=== PATIENT | male | born 1960 | race Caucasian/White ===

== ENCOUNTER 2017-01-15 14:24 | Emergency (ER) | payer SELFPAY ==
[~2017-01-15] VITALS: Ht 180.3 cm; Wt 63.0 kg
[~2017-01-15 14:24] MED LIST: MULT-506 PO
--- NOTE | 2017-01-15 14:50 | EMERGENCY ROOM VISIT NOTE ---
History Report prepared by Chet: Juan A Davis Under the Supervision of: Dr. Ghassan Santos D.O. First contact with patient: 14:33 Chief Complaint: DIZZY Stated Complaint: LIGHTHEADED, DIZZY Nursing Triage Summary: pt c/o feeling dizzy for the past week getting worse and is getting more worried about it History of Present Illness The patient is a 56 year old male who presents to the Emergency Room with complaints of intermittent dizziness that began a week ago. However, today his dizziness has been constant. He describes this feeling as lightheaded with being unsteady on his feet and not as the room spinning. He has never felt like this before. He denies any fevers, coughing, chest pain, shortness of breath, abdominal pain, melena, or hematochezia. He is having an increased difficulty focusing as well. 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 He has a past medical history of migraines and chronic body pains. He had a headache for the past two days that feels like a typical migraine. He does not take any medications daily. Source of History: patient Onset: 1 week ago Position: other (Global) Symptom Intensity: moderate Quality: other (Dizziness) Timing: constant (today), intermittent Associated Symptoms: No fevers, No chest pain, No SOB, No abdominal pain, No melena, No hematochezia Note: He denies any room spinning. He is lightheaded. Review of Systems See HPI for pertinent positives & negatives. A total of 10 systems reviewed and were otherwise negative. Past Medical & Surgical Medical Problems: (1) Herniated disc (2) Wrist fracture Family History Patient reports no known family medical history. Social History Smoking Status: Current Every Day Smoker Alcohol Use: occasionally Marital Status: in relationship Housing Status: lives with family Occupation Status: employed Current/Historical Medications Scheduled Aspirin (Aspirin Ec), 325 MG PO PRN Glucosamine Sulfate (Glucosamine), 1 CAP PO DAILY Meclizine HCl (Meclizine 25), 25 MG PO Q8 Allergies Coded Allergies: BEE STING (Verified Allergy, Mild, 06/23/12) Physical Exam Vital Signs Date Time Temp Pulse Resp B/P (MAP) Pulse Ox O2 Delivery O2 Flow Rate FiO2 01/15/17 18:32 36.4 54 20 131/79 98 01/15/17 17:45 54 20 131/79 98 Room Air 01/15/17 16:22 69 128/77 96 01/15/17 15:16 75 01/15/17 15:11 79 128/81 81 114/82 78 117/73 01/15/17 15:04 97 Room Air 01/15/17 15:04 98 Room Air 01/15/17 14:28 36.4 82 20 114/74 98 Physical Exam GENERAL: Patient is awake, alert, and in no acute distress. Patient is somewhat anxious appearing but does not appear to be uncomfortable. EYES: The conjunctivae are clear. The pupils are round and reactive. EARS, NOSE, MOUTH AND THROAT: The nose is without any evidence of any deformity. Mucous membranes are moist tongue is midline NECK: The neck is nontender and supple. RESPIRATORY: Normal respiratory effort is noted there is no evidence of wheezing rhonchi or rales CARDIOVASCULAR: Regular rate and rhythm noted there no murmurs rubs or gallops normal S1 normal S2 GASTROINTESTINAL: The abdomen is soft. Bowel sounds are present in all quadrants. Abdomen is nontender MUSCULOSKELETAL/EXTREMITIES: There is no evidence of gross deformity full range of motion is noted in the hips and shoulders SKIN: There is no obvious evidence of any rash. There are no petechiae, pallor or cyanosis noted. NEUROLOGIC: Patient is awake alert and oriented x3, no facial droop was noted, strength is symmetric in bilateral lower extremities. Medical Decision & Procedures ER Provider Diagnostic Interpretation: Radiology results as stated below per my review and radiologist interpretation: HEAD WITHOUT CONTRAST (CT) CLINICAL HISTORY: 56 years-old Male presenting with EVALUATE ALTERED MENTAL STATUS/WEAKNESS. TECHNIQUE: Multidetector CT imaging of the head was performed without the use of intravenous contrast. IV contrast: None. A dose lowering technique was used consistent with the principles of ALARA (as low as reasonably achievable). COMPARISON: MR brain from 03/22/[address] head from 09/26/2005. CT DOSE (mGy.cm): The estimated cumulative dose is 776.86 mGycm. FINDINGS: Forestry Technical Officer topogram: Unremarkable. Ventricles and sulci normal in size. Brain parenchyma normal in appearance with preserved johnson-white differentiation. No mass effect or midline shift. No hemorrhage or acute territorial infarct. No extra-axial fluid collection. Paranasal sinuses and mastoid air cells clear. Calvarium intact. IMPRESSION: 1. No acute intracranial abnormality. Electronically signed by: Maverick Perez M.D. 01/15/2017 3:50 PM Dictated Date/Time: 01/15/2017 3:48 PM CHEST ONE VIEW PORTABLE HISTORY: EVALUATE ALTERED MENTAL STATUS/WEAKNESS COMPARISON: None. FINDINGS: The lungs are clear. Cardiac silhouette is normal in size. No pleural effusions. No pneumothorax. IMPRESSION: No acute process. Electronically signed by: Hank West M.D. 01/15/2017 3:01 PM Dictated Date/Time: 01/15/2017 2:59 PM MRA NECK WITHOUT CONTRAST CLINICAL HISTORY: dizziness mental status change COMPARISON STUDY: None. TECHNIQUE: A 1.5 Yoli magnet was utilized. 2-D and 3-D [id number] imaging was performed to obtain unenhanced MRA of the neck. NASCET criteria were utilized to estimate the degree of carotid stenosis. FINDINGS: Normal arterial structures of the neck including carotid and vertebral basilar systems. No significant stenotic or aneurysmal distention. IMPRESSION: Normal study. The above report was generated using voice recognition software. It may contain grammatical, syntax or spelling errors. Electronically signed by: Greg Shi M.D. 01/15/2017 5:28 PM Dictated Date/Time: 01/15/2017 5:26 PM MRA HEAD WITHOUT CONTRAST CLINICAL HISTORY: 56 years-old Male presenting with dizziness, loss of balance, migraine lasting 2 days, no history of stroke. TECHNIQUE: MR angiography of the head was performed without the use of intravenous contrast using 3-D [id number] technique. 3-D volumetric and/or maximum intensity projection (MIP) images were subsequently reconstructed for review. IV contrast: None. COMPARISON: None. FINDINGS: Anterior circulation demonstrates patent intracranial portions of the internal carotid arteries. Patent bilateral anterior and middle cerebral arteries as well as the anterior communicating artery. Trifurcation of the A2 segments of the anterior cerebral arteries. Posterior circulation demonstrates codominant vertebral arteries contribute to the patent basilar artery. Patent posterior inferior cerebellar, superior cerebellar, and posterior cerebral arteries. Anterior inferior cerebellar arteries poorly visualized. The left posterior cerebral artery has a origin. Hypoplastic or aplastic right posterior communicating artery. No evidence of aneurysm, stenosis, or focal vessel occlusion. IMPRESSION: 1. Intracranial vasculature patent without evidence of aneurysm, stenosis, or focal vessel occlusion. Electronically signed by: Maverick Perez M.D. 01/15/2017 5:15 PM Dictated Date/Time: 01/15/2017 5:10 PM BRAIN WITHOUT CONTRAST HISTORY: Mental status change dizziness TECHNIQUE: Multiplanar multisequence MRI of the brain was performed without the use of contrast. COMPARISON STUDY: None. FINDINGS: There are no areas of restricted diffusion to suggest acute infarction. The midline structures are intact. The paranasal sinuses are clear. The mastoid air cells are clear. The ventricles and sulci are within normal limits for age. There is no mass, hematoma, midline shift. The major vascular flow-voids at the skull base are well maintained. IMPRESSION: No acute intracranial abnormality. The above report was generated using voice recognition software. It may contain grammatical, syntax or spelling errors. Electronically signed by: Greg Shi M.D. 01/15/2017 5:17 PM Dictated Date/Time: 01/15/2017 5:15 PM Laboratory Results 01/15/17 14:40 Red Blood Count 4.74, Mean Corpuscular Volume 93.2, Mean Corpuscular Hemoglobin 31.6, Mean Corpuscular Hemoglobin Concent 33.9, Mean Platelet Volume 9.3, Neutrophils (%) (Auto) 59.0, Lymphocytes (%) (Auto) 28.1, Monocytes (%) (Auto) 8.3, Eosinophils (%) (Auto) 4.1, Basophils (%) (Auto) 0.3, Neutrophils # (Auto) 5.72, Lymphocytes # (Auto) 2.72, Monocytes # (Auto) 0.80, Eosinophils # (Auto) 0.40, Basophils # (Auto) 0.03 01/15/17 14:40 Test 01/15/17 14:40 01/15/17 15:20 White Blood Count 9.69 K/uL (4.8-10.8) Red Blood Count 4.74 M/uL (4.7-6.1) Hemoglobin 15.0 g/dL (14.0-18.0) Hematocrit 44.2 % (42-52) Mean Corpuscular Volume 93.2 fL (80-100) Mean Corpuscular Hemoglobin 31.6 pg (25-34) Mean Corpuscular Hemoglobin Concent 33.9 g/dl (32-36) Platelet Count 209 K/uL (130-400) Mean Platelet Volume 9.3 fL (7.4-10.4) Neutrophils (%) (Auto) 59.0 % Lymphocytes (%) (Auto) 28.1 % Monocytes (%) (Auto) 8.3 % Eosinophils (%) (Auto) 4.1 % Basophils (%) (Auto) 0.3 % Neutrophils # (Auto) 5.72 K/uL (1.4-6.5) Lymphocytes # (Auto) 2.72 K/uL (1.2-3.4) Monocytes # (Auto) 0.80 K/uL (0.11-0.59) Eosinophils # (Auto) 0.40 K/uL (0-0.5) Basophils # (Auto) 0.03 K/uL (0-0.2) RDW Standard Deviation 46.4 fL (36.4-46.3) RDW Coefficient of Variation 13.6 % (11.5-14.5) Immature Granulocyte % (Auto) 0.2 % Immature Granulocyte # (Auto) 0.02 K/uL (0.00-0.02) Prothrombin Time 10.1 SECONDS (9.0-12.0) Prothromb Time International Ratio 0.9 (0.9-1.1) Activated Partial Thromboplast Time 26.4 SECONDS (21.0-31.0) Partial Thromboplastin Ratio 1.0 Anion Gap 3.0 mmol/L (3-11) Est Creatinine Clear Calc Drug Dose 90.7 ml/min Estimated GFR () 115.6 Estimated GFR (Non- 99.8 BUN/Creatinine Ratio 14.9 (10-20) Calcium Level 8.8 mg/dl (8.5-10.1) Magnesium Level 2.2 mg/dl (1.8-2.4) Total Bilirubin 0.4 mg/dl (0.2-1) Direct Bilirubin 0.1 mg/dl (0-0.2) Aspartate Amino Transf (AST/SGOT) 16 U/L (15-37) Alanine Aminotransferase (ALT/SGPT) 32 U/L (12-78) Alkaline Phosphatase 130 U/L (45-117) Total Creatine Kinase 48 U/L (39-308) Creatine Kinase MB 0.8 ng/ml (0.5-3.6) Creatine Kinase MB Ratio 1.7 (0-3.0) Troponin I < 0.015 ng/ml (0-0.045) Total Protein 6.8 gm/dl (6.4-8.2) Albumin 3.5 gm/dl (3.4-5.0) Thyroid Stimulating Hormone (TSH) 1.130 uIu/ml (0.300-4.500) Urine Color YELLOW Urine Appearance CLOUDY (CLEAR) Urine pH 7.5 (4.5-7.5) Urine Specific [place] 1.020 (1.000-1.030) Urine Protein NEG (NEG) Urine Glucose (UA) NEG (NEG) Urine Ketones NEG (NEG) Urine Occult Blood NEG (NEG) Urine Nitrite NEG (NEG) Urine Bilirubin NEG (NEG) Urine Urobilinogen NEG (NEG) Urine Leukocyte Esterase TRACE (NEG) Urine WBC (Auto) 1-5 /hpf (0-5) Urine RBC (Auto) 0-4 /hpf (0-4) Urine Hyaline Casts (Auto) 1-5 /lpf (0-5) Urine Epithelial Cells (Auto) 5-10 /lpf (0-5) Urine Bacteria (Auto) NEG (NEG) Laboratory results per my review. Medications Administered Medications (Trade) Dose Ordered Sig/Nannette Route Start Time Stop Time Status Last Admin Dose Admin Meclizine HCl (Antivert Tab) 25 mg NOW STAT PO 01/15/17 16:28 01/15/17 16:30 DC 01/15/17 16:35 25 MG Sodium Chloride 500 ml @ 999 mls/hr Q31M STAT IV 01/15/17 16:28 01/15/17 16:58 DC 01/15/17 16:37 999 MLS/HR ECG Indication: other (Lightheadedness/Dizziness) Rate (beats per minute): 70 Rhythm: normal sinus Findings: no ectopy, other (No acute STS abnormalities) Comparison ECG Date: no prior available ED Course 1433: The patient was evaluated in room C9. A complete history and physical examination were performed. 1628: Ordered NSS 500 ml @ 999 mls/hr IV, Antivert Tab 25 mg PO 1820: Upon reevaluation, the patient is resting. I discussed the results and treatment plan with him. He verbalized agreement of the treatment plan. He was discharged home. Medical Decision Differential diagnosis: Etiologies such as benign positional vertigo, dehydration, hypovolemia, anemia, tumor, infection, hypoglycemia, electrolyte abnormalities, cardiac sources, intracerebral event, toxicologic, neurologic, as well as others were entertained. Nursing notes reviewed. The patient is a 56-year-old male who presented to emergency department for evaluation. The patient was complaining of dizziness as well as a sensation of vertigo. I discussed patient's laboratory and radiographic studies with him. He does not currently have a family doctor so extensive testing was done to ensure this was not a neurologic problem. The patient was encouraged to rest and avoid any strenuous activity. He was also encouraged to continue all medications as prescribed. Otherwise she was encouraged to follow-up with his family doctor for further evaluation but return to the emergency department immediately if symptoms change worsen or the need arises. Medication Reconcilliation Current Medication List: was personally reviewed by me Blood Pressure Screening Patient's blood pressure: Normal blood pressure Blood pressure disposition: Did not require urgent referral Impression Primary Impression: Vertigo Additional Impression: Dizziness Scribe Attestation The scribe's documentation has been prepared under my direction and personally reviewed by me in its entirety. I confirm that the note above accurately reflects all work, treatment, procedures, and medical decision making performed by me. Departure Information Dispostion Home / Self-Care Prescriptions Meclizine HCl (Meclizine 25) 25 Mg Tab 25 MG PO Q8 for Dizziness or Vertigo, #25 TABS Prov: Ghassan Santos, DO 01/15/17 Referrals Opal Centeno,D.O. Forms HOME CARE DOCUMENTATION FORM, IMPORTANT VISIT INFORMATION Patient Instructions ED Dizziness [facility], My [facility] Additional Instructions Rest and avoid any strenuous activity. Follow-up with the family doctor as scheduled. Continue all medications as prescribed. Return to the emergency department immediately if symptoms change worsen or the need arises. Problem Qualifiers
[2017-01-15 15:00] LABS: BASO % 0.3 %; BASO ABS # 0.03 K/uL (0-0.2); COMPLETE YES; EOS % 4.1 %; HEMATOCRIT 44.2 % (42-52); IG% 0.2 %; LYMPH % 28.1 %; LYMPH ABS # 2.72 K/uL (1.2-3.4); MEAN CELL VOLUME 93.2 fL (80-100); MEAN CORPUSCULAR HEMOGLOBIN 31.6 pg (25-34); MEAN CORPUSCULAR HGB CONC 33.9 g/dl (32-36); MEAN PLATELET VOLUME 9.3 fL (7.4-10.4); MONO % 8.3 %; PLATELET COUNT 209 K/uL (130-400); RED BLOOD COUNT 4.74 M/uL (4.7-6.1); WHITE BLOOD COUNT 9.69 K/uL (4.8-10.8)
--- NOTE | 2017-01-15 15:02 | DIAGNOSTIC IMAGING REPORT ---
CHEST ONE VIEW PORTABLE HISTORY: EVALUATE ALTERED MENTAL STATUS/WEAKNESS COMPARISON: None. FINDINGS: The lungs are clear. Cardiac silhouette is normal in size. No pleural effusions. No pneumothorax. IMPRESSION: No acute process. Electronically signed by: Hank West M.D. 01/15/2017 3:01 PM Dictated Date/Time: 01/15/2017 2:59 PM
[2017-01-15 15:04] VITALS: O2SAT 98; Ht 180.3 cm; Wt 63.0 kg
[2017-01-15 15:05] LABS: INR 0.9 (0.9-1.1); PROTHROMBIN TIME (PATIENT) 10.1 SECONDS (9.0-12.0)
[2017-01-15 15:13] LABS: ALT/SGPT 32 U/L (12-78); AST/SGOT 16 U/L (15-37); BLOOD UREA NITROGEN 12 mg/dl (7-18); BUN/CREATININE RATIO 14.9 (10-20); CALCIUM 8.8 mg/dl (8.5-10.1); CARBON DIOXIDE 28 mmol/L (21-32); CHLORIDE 107 mmol/L (98-107); CREATININE 0.83 mg/dl (0.60-1.40); GLUCOSE 89 mg/dl (70-99); MAGNESIUM 2.2 mg/dl (1.8-2.4); POTASSIUM 3.9 mmol/L (3.5-5.1); SODIUM 138 mmol/L (136-145)
[2017-01-15 15:25] LABS: ALKALINE PHOSPHATASE 130 U/L (45-117); CKMB/CK RATIO 1.7 (0-3.0)
[2017-01-15] MEDS ORDERED: GLUC500C4 PO (15:40)
[2017-01-15] MEDS ORDERED: ASPI325T39 PO (15:40)
[2017-01-15 15:43] LABS: URINE APPEARANCE CLOUDY (CLEAR); URINE BILIRUBIN NEG (NEG); URINE COLOR YELLOW; URINE NITRITE NEG (NEG); URINE PH 7.5 (4.5-7.5); UROBILINOGEN NEG (NEG)
[2017-01-15 15:44] LABS: MANUAL MICROSCOPIC REQUIRED? NO; REVIEW REQ? NO
--- NOTE | 2017-01-15 15:51 | DIAGNOSTIC IMAGING REPORT ---
HEAD WITHOUT CONTRAST (CT) CLINICAL HISTORY: 56 years-old Male presenting with EVALUATE ALTERED MENTAL STATUS/WEAKNESS. TECHNIQUE: Multidetector CT imaging of the head was performed without the use of intravenous contrast. IV contrast: None. A dose lowering technique was used consistent with the principles of ALARA (as low as reasonably achievable). COMPARISON: MR brain from 03/22/[address] head from 09/26/2005. CT DOSE (mGy.cm): The estimated cumulative dose is 776.86 mGycm. 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 Ventricles and sulci normal in size. Brain parenchyma normal in appearance with preserved johnson-white differentiation. No mass effect or midline shift. No hemorrhage or acute territorial infarct. No extra-axial fluid collection. Paranasal sinuses and mastoid air cells clear. Calvarium intact. IMPRESSION: 1. No acute intracranial abnormality. Electronically signed by: Maverick Perez M.D. 01/15/2017 3:50 PM Dictated Date/Time: 01/15/2017 3:48 PM
[2017-01-15] MEDS ORDERED: SODIUM CHLORIDE 0.9% 500ML 500 ML IV STA (16:28)
[2017-01-15] MEDS ORDERED: MECLIZINE HCL 25 MG TAB PO STA (16:28)
--- NOTE | 2017-01-15 17:17 | DIAGNOSTIC IMAGING REPORT ---
MRA HEAD WITHOUT CONTRAST CLINICAL HISTORY: 56 years-old Male presenting with dizziness, loss of balance, migraine lasting 2 days, no history of stroke. TECHNIQUE: MR angiography of the head was performed without the use of intravenous contrast using 3-D [id number] technique. 3-D volumetric and/or maximum intensity projection (MIP) images were subsequently reconstructed for review. IV contrast: None. COMPARISON: None. FINDINGS: Anterior circulation demonstrates patent intracranial portions of the internal carotid arteries. Patent bilateral anterior and middle cerebral arteries as well as the anterior communicating artery. Trifurcation of the A2 segments of the anterior cerebral arteries. Posterior circulation demonstrates codominant vertebral arteries contribute to the patent basilar artery. Patent posterior inferior cerebellar, superior cerebellar, and posterior cerebral arteries. Anterior inferior cerebellar arteries poorly visualized. The left posterior cerebral artery has a origin. Hypoplastic or aplastic right posterior communicating artery. No evidence of aneurysm, stenosis, or focal vessel occlusion. IMPRESSION: 1. Intracranial vasculature patent without evidence of aneurysm, stenosis, or focal vessel occlusion. Electronically signed by: Maverick Perez M.D. 01/15/2017 5:15 PM Dictated Date/Time: 01/15/2017 5:10 PM
--- NOTE | 2017-01-15 17:19 | DIAGNOSTIC IMAGING REPORT ---
BRAIN WITHOUT CONTRAST HISTORY: Mental status change dizziness TECHNIQUE: Multiplanar multisequence MRI of the brain was performed without the use of contrast. COMPARISON STUDY: None. FINDINGS: There are no areas of restricted diffusion to suggest acute infarction. The midline structures are intact. The paranasal sinuses are clear. The mastoid air cells are clear. The ventricles and sulci are within normal limits for age. There is no mass, hematoma, midline shift. The major vascular flow-voids at the skull base are well maintained. IMPRESSION: No acute intracranial abnormality. The above report was generated using voice recognition software. It may contain grammatical, syntax or spelling errors. Electronically signed by: Greg Shi M.D. 01/15/2017 5:17 PM Dictated Date/Time: 01/15/2017 5:15 PM
--- NOTE | 2017-01-15 17:29 | DIAGNOSTIC IMAGING REPORT ---
MRA NECK WITHOUT CONTRAST CLINICAL HISTORY: dizziness mental status change COMPARISON STUDY: None. TECHNIQUE: A 1.5 Yoli magnet was utilized. 2-D and 3-D krkp-en-pjnptl imaging was performed to obtain unenhanced MRA of the neck. NASCET criteria were utilized to estimate the degree of carotid stenosis. FINDINGS: Normal arterial structures of the neck including carotid and vertebral basilar systems. No significant stenotic or aneurysmal distention. IMPRESSION: Normal study. The above report was generated using voice recognition software. It may contain grammatical, syntax or spelling errors. Electronically signed by: Greg Shi M.D. 01/15/2017 5:28 PM Dictated Date/Time: 01/15/2017 5:26 PM
[2017-01-15] MEDS ORDERED: MECL-91 PO (18:04)
[2017-01-15 18:32] VITALS: BP 131/79; PULSE 54; TEMP 36.4; O2SAT 98
== END 2017-01-15 18:32 | disposition home or self-care (01) ==
LOC: C.EDB 14:26 → C.EDC 18:32
DX: R42 Dizziness and giddiness (principal); F17.200 Nicotine dependence, unspecified, uncomplicated

== ENCOUNTER 2022-01-31 11:35 | Inpatient (IN) ==
[2022-01-31] MEDS ORDERED: HYDROmorphone INJ 0.5 MG/0.5 ML SYR IV STA ×3 (12:09→18:40)
[2022-01-31] MEDS ORDERED: ONDANSETRON INJ 2 MG/ML 2 ML VIAL IV STA (12:09)
--- NOTE | 2022-01-31 12:10 | Emergency Department Note ---
History of Present Illness General Chief complaint: Back Injury/Pain Stated complaint: NERVE PAIN Time Seen by Provider: 01/31/22 12:02 History of Present Illness Maximum Pain Intensity: 10 This is a 61-year-old male that presents to the emergency department via private vehicle with complaints of "nerve pain". Patient notes that he has been experiencing discomfort in his low back that acutely worsened over the past few days. He points to the left low back/left hip that radiates into his left gluteal region and then inferiorly down the left leg to the foot. He denies any known trauma or injury. No fevers or chills. No abdominal pain. No chest pain or shortness of breath. He does note numbness/tingling in the left lower extremity. He notes that he did seek follow-up for this in the outpatient setting and was started on a course of muscle relaxers and steroids. Patient n otes that he was doing quite well while on the steroids however when he finished these a few days ago he notes his pain sharply returned. Home Medications Medication Instructions Recorded Confirmed Type meloxicam 15 mg tablet 15 mg PO DAILY 12/15/18 01/31/22 History gabapentin 300 mg capsule 600 mg PO TIDM 08/27/20 01/31/22 History omeprazole 20 mg capsule,delayed 20 mg PO DAILYBB 08/27/20 01/31/22 History release acetaminophen 500 mg tablet 1,000 mg PO DIRECTED PRN Pain 01/31/22 01/31/22 History (Tylenol Extra Strength) methocarbamol 750 mg tablet 750 mg PO TID 01/31/22 01/31/22 History Allergies Allergy/AdvReac Type Severity Reaction Status Date / Time bee venom protein (honey bee) Allergy Intermediate EXTRA Verified 01/31/22 18:34 SWELLING AT SITES Past Med/Surg History Medical History Contact with powered saw as cause of accidental injury GERD (gastroesophageal reflux disease) History of herniated intervertebral disc Hx of fracture of wrist Tobacco use Traumatic amputation of multiple fingers Surgical History H/O wrist surgery 1992, fusion wrist Family History (Updated 01/31/22 @ 19:40 by Yudy Wyatt PA-C) Mother Asthma Father Diabetes Social History Smoking Status: Current every day smoker Tobacco Type: Cigarettes Cigarettes Per Day: 1/2ppd; Second Hand Exposure: Yes; Do You Dip or Chew Tobacco: No; Tobacco Cessation Education Requested by Patient: No Hx Alcohol Use: Yes (quit 7 years ago) Alcohol type: beer Hx Substance Use: Yes Non-Prescribed Medications: Marijuana Last Used Substance: Days (ago) Last Used Substance Other:: quit a few years ago Preferred Language: Uzbek Communication Ability: Effective 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 Worker Required: No Beliefs That Will Affect Care: None marital status: Current Living Situation: Family current occupational status: unemployed Other Information That Helps Us Care for You: No Feels Safe at Home: Yes Safety Concerns: Feels Safe At This Time Assistive Devices: Cane Review of Systems A total of 10 systems reviewed and were otherwise negative Physical Exam Vital Signs Vital Signs - 24 hr 01/31/22 11:49 01/31/22 12:29 01/31/22 12:29 Temperature 36.3 C L Temperature Source Temporal Artery Scan Pulse Rate 89 83 Pulse Rate [Finger] 83 Pulse Rate from SpO2 Sensor Pulse Rhythm Regular Regular Pulse Strength Normal Respiratory Rate 20 22 Respiratory Effort / Characteristics Non-Labored Spontaneous Respiratory Depth Normal Respiratory Pattern Regular Blood Pressure 161/104 H Blood Pressure [Right Arm] 177/84 H Blood Pressure Mean 123 Blood Pressure Mean [Right Arm] 115 Blood Pressure Position Sitting Pulse Oximetry 99 98 98 Oxygen Delivery Method Room Air Room Air Sepsis Recent Fever Within 48 Hours No Sepsis New/Unexplained Change in Mental Status No Sepsis Action Taken by Nursing No Action Required 01/31/22 14:32 01/31/22 16:27 Temperature Temperature Source Pulse Rate Pulse Rate [Finger] 71 Pulse Rate from SpO2 Sensor 66 Pulse Rhythm Pulse Strength Respiratory Rate 18 Respiratory Effort / Characteristics Non-Labored Spontaneous Respiratory Depth Normal Respiratory Pattern Blood Pressure 165/101 H Blood Pressure [Right Arm] 160/98 H Blood Pressure Mean 122 Blood Pressure Mean [Right Arm] 118 Blood Pressure Position Pulse Oximetry 94 93 Oxygen Delivery Method Room Air Room Air Sepsis Recent Fever Within 48 Hours Sepsis New/Unexplained Change in Mental Status Sepsis Action Taken by Nursing VITAL SIGNS - Vital signs and nursing notes were reviewed. Stable and afebrile. GENERAL - 61-year-old male appearing his stated age who appears to be in pain. Communicates well with provider and answers questions appropriately. SKIN - Without rashes. No meningeal or petechial rash. HEAD - NC/AT. EYES - Sclera anicteric. NECK - Neck with FROM. No nuchal rigidity. LUNGS - Chest wall symmetric without accessory muscle use, intercostals retractions, or central cyanosis. Normal vesicular breath sounds CTA B/L. No wheezes, rales, or rhonchi appreciated. CARDIAC - RRR with S1/S2. No murmur, rubs, or gallops appreciated. ABDOMEN - Abdominal contour normal without pulsations or visible masses. BS normoactive all four quadrants. No tenderness, palpable masses, hepatosplenom egaly, or ascites noted. EXTREMITIES - No clubbing or peripheral cyanosis. +5/5 strength noted in UE/LE bilaterally. Positive straight leg raise on the left. No deficits. NEUROLOGIC - Cranial nerves II through XII grossly intact. Sensory intact to light touch throughout. MUSCULOSKELETALno step-off or deformity to palpation of the spine or back region. PSYCH - A&Ox3 and cooperates fully with examiner. Pt is very pleasant and interacts well with examiner. Course Administered Medications Diazepam (Diazepam 2 Mg Tablet) 2 mg PO TID COUNTS INCLUDE 234 BEDS AT THE [facility] Stop: 03/02/22 21:49 Last Admin: 02/01/22 07:52 Dose: 2 mg Documented By: Admin: 01/31/22 22:20 Dose: 2 mg Documented By: BROCK Gabapentin (Gabapentin 300 Mg Cap) 600 mg PO TIDM COUNTS INCLUDE 234 BEDS AT THE [facility] Stop: 03/03/22 07:59 Last Admin: 02/01/22 07:53 Dose: 600 mg Documented By: MARICRUZ Ibuprofen (Ibuprofen 800 Mg Tab) 800 mg PO Q8H JOSE Stop: 02/02/22 14:01 Last Admin: 02/01/22 06:18 Dose: 800 mg Documented By: Admin: 01/31/22 23:12 Dose: 800 mg Documented By: BROCK Lidocaine (Lidocaine 5% 1 Patch) 1 patch TD QAM COUNTS INCLUDE 234 BEDS AT THE [facility] Stop: 03/03/22 08:59 Last Admin: 02/01/22 07:54 Dose: 1 patch Documented By: MARICRUZ Methocarbamol (Methocarbamol 750 Mg Tablet) 750 mg PO TID COUNTS INCLUDE 234 BEDS AT THE [facility] Stop: 03/03/22 08:59 Last Admin: 02/01/22 08:49 Dose: 750 mg Documented By: MARICRUZ Miscellaneous (Remove Lidoderm Patch) 1 each N/A DAILY@2100 COUNTS INCLUDE 234 BEDS AT THE [facility] Stop: 03/02/22 23:29 Last Admin: 01/31/22 23:59 Dose: 1 each Documented By: BROCK Miscellaneous (Remove Nicoderm Patch) 1 each N/A DAILY@0859 COUNTS INCLUDE 234 BEDS AT THE [facility] Stop: 03/03/22 08:58 Last Admin: 02/01/22 07:54 Dose: 1 each Documented By: MARICRUZ Nicotine (Nicotine 14 Mg/24 Hr Patch) 14 mg TD QAM COUNTS INCLUDE 234 BEDS AT THE [facility] Stop: 03/02/22 21:49 Last Admin: 02/01/22 07:54 Dose: 14 mg Documented By: Admin: 01/31/22 23:10 Dose: 14 mg Documented By: BROCK Oxycodone HCl (Oxycodone Hcl Ir 5 Mg Tab (Immediate Release)) 5 mg PO Q4H PRN PRN Reason: MODERATE Pain (4,5,6) & Pre PT Stop: 02/14/22 21:49 Last Admin: 01/31/22 22:20 Dose: 5 mg Documented By: BROCK Pantoprazole Sodium (Pantoprazole 40 Mg Tab) 40 mg PO DAILYBB COUNTS INCLUDE 234 BEDS AT THE [facility] Stop: 03/03/22 06:29 Last Admin: 02/01/22 06:17 Dose: 40 mg Documented By: BROCK Discontinued Medications Dexamethasone Sodium Phosphate (DexamethasonePf 10 Mg/Ml Vial) 8 mg IV NOW ONE Stop: 01/31/22 18:10 Last Admin: 01/31/22 18:33 Dose: 8 mg Documented By: [id number] Diazepam (Diazepam 2 Mg Tablet) 2 mg PO NOW STA Stop: 01/31/22 21:04 Last Admin: 01/31/22 22:13 Dose: Not Given Documented By: BROCK Hydromorphone HCl (Hydromorphone Inj 0.5 Mg/0.5 Ml Syr) 0.5 mg IV NOW STA Stop: 01/31/22 12:10 Last Admin: 01/31/22 12:23 Dose: 0.5 mg Documented By: CHELLY Hydromorphone HCl (Hydromorphone Inj 0.5 Mg/0.5 Ml Syr) 0.5 mg IV NOW STA Stop: 01/31/22 16:10 Last Admin: 01/31/22 16:19 Dose: 0.5 mg Documented By: [id number] Hydromorphone HCl (Hydromorphone Inj 0.5 Mg/0.5 Ml Syr) 0.25 mg IV NOW STA Stop: 01/31/22 18:41 Last Admin: 01/31/22 19:52 Dose: 0.25 mg Documented By: BAUDILIO Hydromorphone HCl (Hydromorphone Inj 0.5 Mg/0.5 Ml Syr) 0.5 mg IV Q3H PRN PRN Reason: Pain (6,7,8,9,10) Stop: 02/14/22 21:49 Last Admin: 01/31/22 23:13 Dose: 0.5 mg Documented By: BROCK Hydromorphone HCl (Hydromorphone Inj 1 Mg/Ml Syringe) 1 mg IV NOW STA Stop: 02/01/22 01:33 Last Admin: 02/01/22 01:57 Dose: 1 mg Documented By: BROCK Hydromorphone HCl (Hydromorphone Inj 1 Mg/Ml Syringe) 1 mg IV Q3H PRN PRN Reason: Pain (6,7,8,9,10) Stop: 02/14/22 21:49 Last Admin: 02/01/22 07:53 Dose: 1 mg Documented By: Admin: 02/01/22 04:52 Dose: 1 mg Documented By: BROCK Ceftriaxone Sodium 1,000 mg/ (Dextrose) 50 mls @ 100 mls/hr IV NOW STA Stop: 01/31/22 18:07 Last Infusion: 01/31/22 19:07 Dose: 0 mls/hr Documented By: Admin: 01/31/22 18:32 Dose: 100 mls/hr Documented By: [id number] Ibuprofen (Ibuprofen 600 Mg Tab) 600 mg PO NOW STA Stop: 01/31/22 20:57 Last Admin: 01/31/22 22:13 Dose: Not Given Documented By: BROCK Lidocaine (Lidocaine 5% 1 Patch) 1 patch TD NOW STA Stop: 01/31/22 16:10 Last Admin: 01/31/22 16:19 Dose: 1 patch Documented By: [id number] Ondansetron HCl (Ondansetron Inj 2 Mg/Ml 2 Ml Vial) 4 mg IV NOW STA Stop: 01/31/22 12:10 Last Admin: 01/31/22 12:22 Dose: 4 mg Documented By: CHELLY Medical Decision Making Laboratory Data Result diagrams: 02/01/22 08:11 02/01/22 08:11 Lab Results 01/31/22 01/31/22 01/31/22 Range/Units 12:27 12:27 12:27 WBC 7.30 (4.8-10.8) K/ul RBC 4.61 L (4.63-6.08) M/uL Hgb 14.4 (14.0-18.0) g/dl Hct 42.7 (40.1-51.0) % MCV 92.6 (80.0-100.0) fL MCH 31.2 (25.0-34.0) pg MCHC 33.7 (32.0-36.0) g/dL RDW Std Deviation 44.7 (36.4-46.3) fL RDW Coeff of Eli 13.2 (11.5-14.5) % Plt Count 254 (130-400) K/uL MPV 9.0 L (9.4-12.4) fL Immature Gran % (Auto) 0.3 % Neut % (Auto) 66.6 % Lymph % (Auto) 24.0 % [place] % (Auto) 7.3 % Eos % (Auto) 1.4 % Baso % (Auto) 0.4 % Neut # (Auto) 4.87 (1.4-6.5) K/uL Lymph # (Auto) 1.75 (1.2-3.4) K/uL [place] # (Auto) 0.53 (0.24-0.82) K/uL Eos # (Auto) 0.10 (0-0.50) K/uL Baso # (Auto) 0.03 (0-0.2) K/uL Immature Gran # (Auto) 0.02 (0.00-0.02) K/uL PT 10.3 (9.0-12.0) Seconds INR 1.0 (0.9-1.1) Sodium 140 (136-145) mmol/L Potassium 4.4 (3.5-5.1) mmol/L Chloride 111 H (98-107) mmol/L Carbon Dioxide 24 (21-32) mmol/L Anion Gap 5 (3-11) BUN 19 (6-23) mg/dl Creatinine 0.93 (0.6-1.4) mg/dl Est Cr Clr Drug Dosing Not Reportable Est GFR ( Amer) 103.8 ml/min Est GFR (Non-Af Amer) 89.5 ml/min BUN/Creatinine Ratio 20.4 H (10-20) Glucose 94 (70-99(Fasting)) mg/dl Calcium 9.0 (8.5-10.1) mg/dl Total Bilirubin 0.3 (0.2-1.0) mg/dl AST 16 (13-39) U/L ALT 15 (7-52) U/L Alkaline Phosphatase 87 (34-104) U/L Total Protein 6.4 (6.0-8.3) gm/dl Albumin 4.1 (3.4-5.0) gm/dl Globulin 2.3 L (2.5-4.0) gm/dl Albumin/Globulin Ratio 1.8 (0.9-2) Urine Color Urine Appearance (Clear) Urine pH (4.5-7.5) Ur Specific [place] (1.000-1.030) Urine Protein (Negative) Urine Glucose (UA) (Negative) Urine Ketones (Negative) Urine Blood (Negative) Urine Nitrite (Negative) Urine Bilirubin (Negative) Urine Urobilinogen (Negative) Ur Leukocyte Esterase (Negative) Urine WBC (Auto) (0-5) /hpf Urine RBC (Auto) (0-4) /hpf U Hyaline Cast (Auto) (0-5) /lpf U Epithel Cells (Auto) (0-5) /lpf Urine Bacteria (Auto) (Negative) SARS-CoV-2, RNA, NAAT (NEGATIVE) 01/31/22 01/31/22 Range/Units 14:25 18:50 WBC (4.8-10.8) K/ul RBC (4.63-6.08) M/uL Hgb (14.0-18.0) g/dl Hct (40.1-51.0) % MCV (80.0-100.0) fL MCH (25.0-34.0) pg MCHC (32.0-36.0) g/dL RDW Std Deviation (36.4-46.3) fL RDW Coeff of Eli (11.5-14.5) % Plt Count (130-400) K/uL MPV (9.4-12.4) fL Immature Gran % (Auto) % Neut % (Auto) % Lymph % (Auto) % [place] % (Auto) % Eos % (Auto) % Baso % (Auto) % Neut # (Auto) (1.4-6.5) K/uL Lymph # (Auto) (1.2-3.4) K/uL [place] # (Auto) (0.24-0.82) K/uL Eos # (Auto) (0-0.50) K/uL Baso # (Auto) (0-0.2) K/uL Immature Gran # (Auto) (0.00-0.02) K/uL PT (9.0-12.0) Seconds INR (0.9-1.1) Sodium (136-145) mmol/L Potassium (3.5-5.1) mmol/L Chloride (98-107) mmol/L Carbon Dioxide (21-32) mmol/L Anion Gap (3-11) BUN (6-23) mg/dl Creatinine (0.6-1.4) mg/dl Est Cr Clr Drug Dosing Est GFR ( Amer) ml/min Est GFR (Non-Af Amer) ml/min BUN/Creatinine Ratio (10-20) Glucose (70-99(Fasting)) mg/dl Calcium (8.5-10.1) mg/dl Total Bilirubin (0.2-1.0) mg/dl AST (13-39) U/L ALT (7-52) U/L Alkaline Phosphatase (34-104) U/L Total Protein (6.0-8.3) gm/dl Albumin (3.4-5.0) gm/dl Globulin (2.5-4.0) gm/dl Albumin/Globulin Ratio (0.9-2) Urine Color Yellow Urine Appearance Clear (Clear) Urine pH 5.5 (4.5-7.5) Ur Specific [place] 1.014 (1.000-1.030) Urine Protein Negative (Negative) Urine Glucose (UA) Negative (Negative) Urine Ketones Negative (Negative) Urine Blood Negative (Negative) Urine Nitrite Positive A (Negative) Urine Bilirubin Negative (Negative) Urine Urobilinogen Negative (Negative) Ur Leukocyte Esterase Negative (Negative) Urine WBC (Auto) 1-5 (0-5) /hpf Urine RBC (Auto) 0-4 (0-4) /hpf U Hyaline Cast (Auto) 0 (0-5) /lpf U Epithel Cells (Auto) 0-5 (0-5) /lpf Urine Bacteria (Auto) 4+ H (Negative) SARS-CoV-2, RNA, NAAT NEGATIVE (NEGATIVE) Imaging Data Radiologist's Impression: Lumbar Spine MRI 01/31/22 12:09 LUMBAR SPINE MRI HISTORY: severe L low back pain into leg, numbness TECHNIQUE: Multiplanar multisequence MRI of the lumbar spine was performed without the use of contrast. COMPARISON: Lumbar spine 01/31/2022. FINDINGS: For the purpose of the report the L5-S1 disc space will be located on axial image 28 of 31. Straightening of the lumbar spine. No fracture or subluxation. Mild disc space narrowing at L2-L3, L3-L4, L4-L5. Severe disc space narrowing at L5-S1. Moderate facet degenerative changes at L3-L4. Mild facet degenerative changes throughout the remaining lumbar spine. The partially visualized 2 cm T2 hyperintense lesion within the right kidney. This favors a cyst. Paravertebral soft tissue tissues are unremarkable. Mild marrow edema at the L3-L4 facets and L3 transverse process. This is likely due to the degenerative changes. Interspinous degenerative changes at L3-L4. The conus terminates at the T12-L1 disc space level. L1-L2: The small central/left paracentral broad-based posterior disc protrusion without significant central canal or right-sided neural foraminal narrowing. There is mild left-sided neural foraminal narrowing. L2-L3: Small broad-based posterior disc bulge without significant central canal narrowing. There is mild bilateral neural foraminal narrowing. L3-L4: Broad-based posterior disc bulge with a 9 x 6 mm focal central disc protrusion. Conjunction with the ligamentum and facet hypertrophy this results in severe central canal narrowing with the AP diameter measuring 5 mm. There is also moderate bilateral neural foraminal narrowing due to the disc bulge and facet hypertrophy. L4-L5: Broad-based posterior disc bulge with ligamentum and facet hypertrophy resulting in [id number] central canal and moderate bilateral neural foraminal narrowing. L5-S1: Broad-based posterior disc bulge with a small left paracentral focal disc protrusion measuring 4 mm. This abuts and slightly displaces the transiting left S1 nerve root. No significant central canal narrowing. There is moderate bilateral neural foraminal narrowing due to the disc bulge and facet hypertrophy. IMPRESSION: 1. Multilevel lumbar spondylosis as described above most pronounced at the L3-L4 level which demonstrates severe central canal narrowing secondary to a focal central disc protrusion and ligamentum/facet hypertrophy. 2. There is a small left paracentral focal disc protrusion at L5-S1 which abuts and slightly displaces the transiting left S1 nerve root. 3. No fracture or subluxation. ACT 112: Negative or not required by law. Electronically signed by: Hank West M.D. 01/31/2022 5:46 PM Lumbar Spine X-Ray 01/31/22 12:09 LUMBAR SPINE 5 VIEWS HISTORY: severe L low back pain into leg, numbness COMPARISON: None. FINDINGS: There is no fracture. No subluxation. Straightening of the lumbar spine. The visualized sacrum is intact. Mild disc space narrowing at L3-L4 and L4-5. Severe disc space narrowing at L5-S1 with endplate osteophytes. Ulit-ut-vveahtkd facet degenerative changes within the mid to lower lumbar spine. Old, healed right lower rib fractures. IMPRESSION: 1. No fractures within the lumbar spine. 2. Degenerative changes as described above. ACT 112: Negative or not required by law. Electronically signed by: Hank West M.D. 01/31/2022 1:15 PM MDM Narrative Patient was seen and evaluated as above in room D02. Review was performed of nursing notes and vital signs. I did review pertinent previous visits and patient history. After obtaining a thorough history and physical examination the above work up was performed. Patient presents to us today with left-sided low back pain that radiates down the left leg consistent with lumbar radiculopathy. No infectious symptoms. Clinically he appears overall well but in pain. Options of care were discussed with the patient. IV access was established. Labs were drawn. Patient medicated with IV Dilaudid for pain, IV Zofran for any nausea. Labs reveal no leukocytosis or concerning anemia. No emergent metabolic disturbance. Urinalysis reveals positive nitrites and 4+ bacteria. Patient denies any dysuria, fever or infectious symptoms. X-ray of the L-spine was obtained. The patient does have what appears to be severe disc base n arrowing at L5-S1 which fits the dermatomal location of his pain. Patient appears to be in a fair amount of pain on arrival here today. With the patient having significant left-sided low back discomfort that continues to return despite IV analgesia here I found it reasonable to proceed with MRI of the L- spine. This was obtained. Results as above. Patient does have multilevel lumbar spondylosis most pronounced at L3-L4 level which demonstrates severe central canal narrowing secondary to a focal disc protrusion. Patient also has a small left paracentral focal disc protrusion at L5-S1. Patient clinically does not have any evidence of cauda equina syndrome. These findings today are not felt to be on a posttraumatic basis. With the patient's pain continuing here in the emergency department I did discuss benefit versus risk of inpatient versus outpatient management. Patient did attempt to ambulate however had significant discomfort in doing so. Decision was made to proceed with inpatient management of which the patient does desire. Patient was medicated with IV ceftriaxone to cover for potential UTI noting his urine findings here today. In addition IV dexamethasone was also ordered to help manage the radicular symptoms. It was felt that the benefit outweighed risk. Patient case then discussed with the hospitalist service. Please refer to further documentation regarding his stay. GCS: 15 In the evaluation and treatment of this patient the following differential shireen gnosis entertained: Fracture, dislocation, subluxation, cauda equina syndrome, AAA, diverticulitis, appendicitis, torsion, osteomyelitis, piriformis syndrome, strain, sprain, among others. Impression & Plan Acute left lumbar radiculopathy, Intractable back pain, Abnormal urinalysis Discharge Plan Visit Data Chief Complaint: Back Injury/Pain Stated Complaint: NERVE PAIN ED Provider: Peyton Ochoa ED Midlevel Provider: Steven Tapia Discharge Problem: Acute left lumbar radiculopathy, Intractable back pain, Abnormal urinalysis Patient Disposition: Admitted As Inpatient Condition: Good Discharge Instructions Interventions: ED Discharge Assessment Last Done: 01/31/22 21:12
[2022-01-31 12:46] LABS: Basophils # (auto) 0.03 K/uL (0-0.2); Basophils % (auto) 0.4 %; Eosinophils % (auto) 1.4 %; Hematocrit (blood only) 42.7 % (40.1-51.0); Hemoglobin 14.4 g/dl (14.0-18.0); Immature Granulocytes # (auto) 0.02 K/uL (0.00-0.02); Immature Granulocytes % (auto) 0.3 %; Lymphocytes # (auto) 1.75 K/uL (1.2-3.4); Mean Corpuscular Hemoglobin 31.2 pg (25.0-34.0); Mean Corpuscular Hgb Conc 33.7 g/dL (32.0-36.0); Mean Corpuscular Volume 92.6 fL (80.0-100.0); Monocytes # (auto) 0.53 K/uL (0.24-0.82); Monocytes % (auto) 7.3 %; Neutrophils # (auto) 4.87 K/uL (1.4-6.5); Neutrophils % (auto) 66.6 %; Platelet Count 254 K/uL (130-400); RDW Coefficient of Variation 13.2 % (11.5-14.5); RDW Standard Deviation 44.7 fL (36.4-46.3); Red Blood Count 4.61 M/uL (4.63-6.08)
[2022-01-31 13:12] LABS: Alanine Aminotransferase 15 U/L (7-52); Albumin Globulin Ratio 1.8 (0.9-2); Albumin Level 4.1 gm/dl (3.4-5.0); Alkaline Phosphatase 87 U/L (34-104); Anion Gap 5 (3-11); Aspartate Aminotransferase 16 U/L (13-39); BUN Creatinine Ratio 20.4 (10-20); Bilirubin,Total 0.3 mg/dl (0.2-1.0); Blood Urea Nitrogen 19 mg/dl (6-23); Carbon Dioxide 24 mmol/L (21-32); Chloride 111 mmol/L (98-107); Est GFR (African American) 103.8 ml/min; Est GFR (Non-African American) 89.5 ml/min; Globulin 2.3 gm/dl (2.5-4.0); Glucose 94 mg/dl (70-99(Fasting)); Potassium 4.4 mmol/L (3.5-5.1); Sodium 140 mmol/L (136-145); Total Protein 6.4 gm/dl (6.0-8.3)
--- NOTE | 2022-01-31 13:16 | XRay Report ---
LUMBAR SPINE 5 VIEWS HISTORY: severe L low back pain into leg, numbness COMPARISON: None. FINDINGS: There is no fracture. No subluxation. Straightening of the lumbar spine. The visualized sa farnaz is intact. Mild disc space narrowing at L3-L4 and L4-5. Severe disc space narrowing at L5-S1 wit h endplate osteophytes. Wxhv-ib-pmrrdixi facet degenerative changes within the mid to lower lumbar sp ine. Old, healed right lower rib fractures. IMPRESSION: 1. No fractures within the lumbar spine. 2. Degenerative changes as described above. ACT 112: Negative or not required by law. Electronically signed by: Hank West M.D. 01/31/2022 1:15 PM
[2022-01-31 14:45] LABS: Appearance Urine Clear (Clear); Bacteria Urine Automated 4+ (Negative); Bilirubin Urine Negative (Negative); Blood Urine Negative (Negative); Cast Urine Automated 0 /lpf (0-5); Color Urine Yellow; Epithelial Cell Urine Auto 0-5 /lpf (0-5); Glucose Urine UA Negative (Negative); Ketones Urine Negative (Negative); Leukocyte Esterase Urine Negative (Negative); Nitrite Urine Positive (Negative); Protein Urine Negative (Negative); RBC Urine Automated 0-4 /hpf (0-4); Specific Gravity Urine 1.014 (1.000-1.030); Urobilinogen Urine Negative (Negative); pH Urine 5.5 (4.5-7.5)
[2022-01-31] MEDS ORDERED: LIDOCAINE 5% 1 PATCH TD STA (16:09)
[2022-01-31] MEDS ORDERED: cefTRIAXone SODIUM 1,000 MG in DEXTROSE 5% AD-VAN 50 ML IV STA (17:38)
--- NOTE | 2022-01-31 17:47 | Magnetic Resonance Report ---
LUMBAR SPINE MRI HISTORY: severe L low back pain into leg, numbness TECHNIQUE: Multiplanar multisequence MRI of the lumbar spine was performed without the use of contras t. COMPARISON: Lumbar spine 01/31/2022. FINDINGS: For the purpose of the report the L5-S1 disc space will be located on axial image 28 of 31. Straightening of the lumbar spine. No fracture or subluxation. Mild disc space narrowing at L2-L3, L3 -L4, L4-L5. Severe disc space narrowing at L5-S1. Moderate facet degenerative changes at L3-L4. Mild facet degenerative changes throughout the remaining lumbar spine. The partially visualized 2 cm T2 hy perintense lesion within the right kidney. This favors a cyst. Paravertebral soft tissue tissues are unremarkable. Mild marrow edema at the L3-L4 facets and L3 transverse process. This is likely due to the degenerative changes. Interspinous degenerative changes at L3-L4. The conus terminates at the T12 -L1 disc space level. L1-L2: The small central/left paracentral broad-based posterior disc protrusion without significant c entral canal or right-sided neural foraminal narrowing. There is mild left-sided neural foraminal shy rowing. L2-L3: Small broad-based posterior disc bulge without significant central canal narrowing. There is m ild bilateral neural foraminal narrowing. L3-L4: Broad-based posterior disc bulge with a 9 x 6 mm focal central disc protrusion. Conjunction wi th the ligamentum and facet hypertrophy this results in severe central canal narrowing with the AP di ameter measuring 5 mm. There is also moderate bilateral neural foraminal narrowing due to the disc bu lge and facet hypertrophy. L4-L5: Broad-based posterior disc bulge with ligamentum and facet hypertrophy resulting in mild-to-mo derate central canal and moderate bilateral neural foraminal narrowing. L5-S1: Broad-based posterior disc bulge with a small left paracentral focal disc protrusion measuring 4 mm. This abuts and slightly displaces the transiting left S1 nerve root. No significant central ca nal narrowing. There is moderate bilateral neural foraminal narrowing due to the disc bulge and facet hypertrophy. IMPRESSION: 1. Multilevel lumbar spondylosis as described above most pronounced at the L3-L4 level which demonstr ates severe central canal narrowing secondary to a focal central disc protrusion and ligamentum/facet hypertrophy. 2. There is a small left paracentral focal disc protrusion at L5-S1 which abuts and slightly displace s the transiting left S1 nerve root. 3. No fracture or subluxation. ACT 112: Negative or not required by law. Electronically signed by: Hank West M.D. 01/31/2022 5:46 PM
[2022-01-31] MEDS ORDERED: dexAMETHasone**PF** 10 MG/ML VIAL IV ONE (18:09)
--- NOTE | 2022-01-31 19:37 | History & Physical Report ---
Date of Service January 31, 2022 Assessment & Plan (1) Intractable back pain: (2) Intervertebral disc protrusion: Plan: Patient is 61 y/o M with PMH GERD, low back pain presented to ER with c/o worsening low back pain, pain to left buttock with radiation to left leg. MRI Lumbar Spine: 1. Multilevel lumbar spondylosis as described above most pronounced at the L3-L4 level which demonstrates severe central canal narrowing secondary to a focal central disc protrusion and ligamentum/facet hypertrophy. 2. There is a small left paracentral focal disc protrusion at L5-S1 which abuts and slightly displaces the transiting left S1 nerve root. 3. No fracture or subluxation. In ER given total 1.25mg Dilaudid IV, dexamethasone 8mg IV, zofran 4mg IV, lidocaine patch with minimal relief Continue Lidocaine patch Ibuprofen, Valium scheduled oxycodone, Dilaudid prn Continue home gabapentin Ortho spine consult (3) UTI (urinary tract infection): Plan: UA: +nitrite, 4+bacteria chronic urinary frequency, denies dysuria, hematuria, urgency or retention. No CVA tenderness In ER given Rocephin Urine culture pending Continue Rocephin (4) GERD (gastroesophageal reflux disease): Plan: Continue PPI (5) Tobacco use: Plan: Trying to quit. Encouraged smoking cessation Nicotine patch DVT Prophylaxis SCDs Full Code as per discussion with pt Follows with Dr Valencia for routine care Pt was seen and care coordinated with Dr Lama. See addendum History of Present Illness Chief Complaint: Back pain Primary Care Provider: Anibal Valencia MD Patient is 61 y/o M with PMH GERD, low back pain presented to ER with c/o worsening low back pain. Patient states for past 3 weeks with sharp pain to left buttock that radiates down left leg to ankle. Pain worse with movement of LLE or rotation of back. Saw PCP office 01/15/22 and was given dose of Toradol and started on methocarbamol TID. Reports taking with some relief. Has also been using Tylenol. 3 days ago took trip in car to [employer] [place] and since the pain to left buttock and LLE has worsened. Pain 9/10 on pain scale. Denies other known injury or trauma. He states in 1998 was told had herniated disc to back. Reports chronic urinary frequency and in past was on medication for BPH, however has not been on for many years. Denies dysuria, hematuria, urgency or retention, flank pain, abdominal pain, fever/chills, N/V/D/C, diaphoresis, MCKAY, dizziness, syncope, vision changes, neck pain, CP, SOB, orthopnea, palpitations, cough, sore throat, choking, otalgia, rhinorrhea, paresthesias, extremity weakness, extremity edema, rashes. Allergies Allergy/AdvReac Type Severity Reaction Status Date / Time bee venom protein (honey bee) Allergy Intermediate EXTRA Verified 01/31/22 18:34 SWELLING AT SITES Home Medications Medication Instructions Recorded Confirmed Type meloxicam 15 mg tablet 15 mg PO DAILY 12/15/18 01/31/22 History gabapentin 300 mg capsule 600 mg PO TIDM 08/27/20 01/31/22 History omeprazole 20 mg capsule,delayed 20 mg PO DAILYBB 08/27/20 01/31/22 History release acetaminophen 500 mg tablet 1,000 mg PO DIRECTED PRN Pain 01/31/22 01/31/22 History (Tylenol Extra Strength) methocarbamol 750 mg tablet 750 mg PO TID 01/31/22 01/31/22 History Past Med/Surg History Medical History (Updated 01/31/22 @ 19:49 by Yudy Wyatt PA-C) Contact with powered saw as cause of accidental injury GERD (gastroesophageal reflux disease) History of herniated intervertebral disc Hx of fracture of wrist Tobacco use Traumatic amputation of multiple fingers Surgical History (Updated 01/31/22 @ 19:36 by Yudy Wyatt PA-C) H/O wrist surgery 1992, fusion wrist Family History (Updated 01/31/22 @ 19:40 by Yudy Wyatt PA-C) Mother Asthma Father Diabetes Social History (Updated 01/31/22 @ 19:41 by Yudy Wyatt PA-C) Tobacco Type: Cigarettes Cigarettes Per Day: 1/2ppd; Hx Alcohol Use: No Hx Substance Use: Yes Non-Prescribed Medications: Marijuana Last Used Substance: Days (ago) Preferred Language: Yoruba marital status: Current Living Situation: Spouse current occupational status: unemployed Feels Safe at Home: Yes Review of Systems Review of Systems: All systems reviewed & are unremarkable except as noted in HPI & below Physical Exam Physical Exam: General: Mild distress secondary to back pain, WDWN Head: normocephalic, atraumatic Eyes: conjunctiva non-injected, anicteric ENT: normal inspection external ears, nose, mucous membranes moist Neck: supple, trachea midline Lungs: clear, no respiratory distress, no wheezing/rhonchi/rales CV: RRR, no murmur, no pretibial edema Abd: normal BS, soft, non-tender Back: no discoloration or rashes, +tenderness to palpation low lumbar spinous processes. +tenderness to palpation over left buttock. No CVA tenderness to percussion. +left leg raise to approx 25 degrees. distal pulses palpable, sensation to light touch intact Ext: no cyanosis, no calf tenderness Neuro: A&O x 3, no focal deficits noted, normal affect Skin: warm, dry Results & Data Results & Data ([facility]) Vital Signs (Past 12 Hours) Vital Signs Temp Pulse Pulse Resp BP BP Pulse Ox 01/31/22 16:27 165/101 H 93 01/31/22 14:32 71 18 160/98 H 94 01/31/22 12:29 83 98 01/31/22 12:29 83 22 177/84 H 98 01/31/22 11:49 36.3 C L 89 20 161/104 H 99 O2 Del Method 01/31/22 16:27 Room Air 01/31/22 14:32 Room Air 01/31/22 12:29 Room Air 01/31/22 12:29 01/31/22 11:49 Room Air Laboratory Results Short CBC 01/31/22 Range/Units 12: WBC 7.30 (4.8-10.8) K/ul Hgb 14.4 (14.0-18.0) g/dl Hct 42.7 (40.1-51.0) % Plt Count 254 (130-400) K/uL BMP 01/31/22 12:27 Sodium 140 Potassium 4.4 Chloride 111 H Carbon Dioxide 24 BUN 19 Creatinine 0.93 Glucose 94 Calcium 9.0 Liver Function 01/31/22 Range/Units 12:27 Total Bilirubin 0.3 (0.2-1.0) mg/dl AST 16 (13-39) U/L ALT 15 (7-52) U/L Alkaline Phosphatase 87 (34-104) U/L Albumin 4.1 (3.4-5.0) gm/dl Urine 01/31/22 Range/Units 14:25 Urine Color Yellow Urine Appearance Clear (Clear) Urine pH 5.5 (4.5-7.5) Ur Specific [place] 1.014 (1.000-1.030) Urine Protein Negative (Negative) Urine Glucose (UA) Negative (Negative) Diagnostic Findings Lumbar Spine MRI 01/31/22 12:09 LUMBAR SPINE MRI HISTORY: severe L low back pain into leg, numbness TECHNIQUE: Multiplanar multisequence MRI of the lumbar spine was performed without the use of contrast. COMPARISON: Lumbar spine 01/31/2022. FINDINGS: For the purpose of the report the L5-S1 disc space will be located on axial image of . Straightening of the lumbar spine. No fracture or subluxation. Mild disc space narrowing at L2-L3, L3-L4, L4-L5. Severe disc space narrowing at L5-S1. Moderate facet degenerative changes at L3-L4. Mild facet degenerative changes throughout the remaining lumbar spine. The partially visualized 2 cm T2 hyperintense lesion within the right kidney. This favors a cyst. Paravertebral soft tissue tissues are unremarkable. Mild marrow edema at the L3-L4 facets and L3 transverse process. This is likely due to the degenerative changes. Interspinous degenerative changes at L3-L4. The conus terminates at the T12-L1 disc space level. L1-L2: The small central/left paracentral broad-based posterior disc protrusion without significant central canal or right-sided neural foraminal narrowing. There is mild left-sided neural foraminal narrowing. L2-L3: Small broad-based posterior disc bulge without significant central canal narrowing. There is mild bilateral neural foraminal narrowing. L3-L4: Broad-based posterior disc bulge with a 9 x 6 mm focal central disc protrusion. Conjunction with the ligamentum and facet hypertrophy this results in severe central canal narrowing with the AP diameter measuring 5 mm. There is also moderate bilateral neural foraminal narrowing due to the disc bulge and facet hypertrophy. L4-L5: Broad-based posterior disc bulge with ligamentum and facet hypertrophy resulting in [id number] central canal and moderate bilateral neural foraminal narrowing. L5-S1: Broad-based posterior disc bulge with a small left paracentral focal disc protrusion measuring 4 mm. This abuts and slightly displaces the transiting left S1 nerve root. No significant central canal narrowing. There is moderate bilateral neural foraminal narrowing due to the disc bulge and facet hypertrophy. IMPRESSION: 1. Multilevel lumbar spondylosis as described above most pronounced at the L3-L4 level which demonstrates severe central canal narrowing secondary to a focal central disc protrusion and ligamentum/facet hypertrophy. 2. There is a small left paracentral focal disc protrusion at L5-S1 which abuts and slightly displaces the transiting left S1 nerve root. 3. No fracture or subluxation. ACT 112: Negative or not required by law. Electronically signed by: Hank West M.D. 01/31/2022 5:46 PM Lumbar Spine X-Ray 01/31/22 12:09 LUMBAR SPINE 5 VIEWS HISTORY: severe L low back pain into leg, numbness COMPARISON: None. FINDINGS: There is no fracture. No subluxation. Straightening of the lumbar spine. The visualized sacrum is intact. Mild disc space narrowing at L3-L4 and L4-5. Severe disc space narrowing at L5-S1 with endplate osteophytes. Rxci-[id number] facet degenerative changes within the mid to lower lumbar spine. Old, healed right lower rib fractures. IMPRESSION: 1. No fractures within the lumbar spine. 2. Degenerative changes as described above. ACT 112: Negative or not required by law. Electronically signed by: Hank West M.D. 01/31/2022 1:15 PM Supervising Physician Co-Signing Physician Notes I have seen and examined the patient and have discussed the case with the provider above. I agree with the assessment and plan as stated. 61-year-old man with recent history of worsening low back pain with sharp radi ating pain down the left leg. He has significant difficulties with ambulating or moving into and out of bed. Multiple conservative medications have been tried in the last couple of weeks but the pain still getting worse in the last 2 days after a prolonged car ride. He reports taking approximately 5200 mg of Tylenol 4 different times in the last 24 hours, he has been taking approximately twice as much gabapentin as he is prescribed and he took 2 Mobic instead of 1. No other [id number] medications were reported. He saw an art studio teacher yesterday and underwent a cupping therapy. We discussed the importance of Tylenol restriction to avoid toxicity and a danger this can mean for his liver. Tylenol level is pending. He is still reporting a significant amount of pain. On physical exam he is in moderate distress because of back pain he is not working to breathe and is requesting food. Straight leg raise test on the left is positive. He has significant tenderness to palpation in the left lower back/gluteal region. No other gross focal neuromuscular deficits are present. Heart and lung exam is within normal limits Work-up today includes a normal CBC, normal BMP with no evidence of increased bilirubin or LFTs on liver panel. Urinalysis reveals evidence of bacteria that is nitrite positive. He underwent a lumbar spine MRI revealing degenerative disease with severe canal narrowing secondary to a focal disc protrusion at the L3-L4 level and a small just perfusion at the L5-S1 level which abuts and slightly displaces the transiting S1 nerve root. Overall this is a patient with worsened low back pain after prolonged car ride and with evidence of spinal cord pathology. Continue with supportive care including ibuprofen and Valium for pain management. Avoid Tylenol pending Tylenol level given possible toxicity. Smoking cessation is strongly advised. Questionable if he has a urinary tract infection. Agree with empiric antibiotics pending culture results. As there is no blood in the UA, an infected stone appears less likely. Orthospine consult pending. Kelyb,
[2022-01-31] MEDS ORDERED: IBUPROFEN 600 MG TAB PO STA (20:56)
[2022-01-31] MEDS ORDERED: diazePAM 2 MG TABLET PO STA (21:03)
[2022-01-31 21:42] LABS: Prothrombin Time 10.3 Seconds (9.0-12.0)
[2022-01-31] MEDS ORDERED: HYDROmorphone INJ 0.5 MG/0.5 ML SYR IV PRN (21:50)
[2022-01-31] MEDS ORDERED: NALOXONE HCL 0.4 MG/1 ML VIAL/CARP IV PRN (21:50)
[2022-01-31] MEDS: diazePAM 2 MG TABLET PO SCH (22:20)
[2022-01-31] MEDS: oxyCODONE HCL IR 5 MG TAB (IMMEDIATE RELEASE) PO PRN (22:20)
[2022-01-31] MEDS: NICOTINE 14 MG/24 HR PATCH TD SCH (23:10)
[2022-01-31] MEDS: IBUPROFEN 800 MG TAB PO SCH (23:12)
[2022-02-01] MEDS ORDERED: HYDROmorphone INJ 1 MG/ML SYRINGE IV STA (01:32)
[2022-02-01] MEDS: HYDROmorphone INJ 1 MG/ML SYRINGE IV PRN ×4 (04:52→15:21)
[2022-02-01] MEDS: PANTOprazole 40 MG TAB PO SCH (06:17)
[2022-02-01] MEDS: IBUPROFEN 800 MG TAB PO SCH ×3 (06:18→20:59)
[2022-02-01] MEDS: diazePAM 2 MG TABLET PO SCH ×3 (07:52→20:59)
[2022-02-01] MEDS: GABAPENTIN 300 MG CAP PO SCH ×3 (07:53→16:27)
[2022-02-01] MEDS: LIDOCAINE 5% 1 PATCH TD SCH (07:54)
[2022-02-01] MEDS: NICOTINE 14 MG/24 HR PATCH TD SCH (07:54)
[2022-02-01] MEDS: METHOCARBAMOL 750 MG TABLET PO SCH ×3 (08:49→20:59)
[2022-02-01 09:05] LABS: Hematocrit (blood only) 43.9 % (40.1-51.0); Mean Corpuscular Hemoglobin 31.9 pg (25.0-34.0); Mean Corpuscular Hgb Conc 34.2 g/dL (32.0-36.0); Mean Corpuscular Volume 93.4 fL (80.0-100.0); Mean Platelet Volume 9.2 fL (9.4-12.4); Platelet Count 280 K/uL (130-400); RDW Standard Deviation 45.1 fL (36.4-46.3); White Blood Count 12.08 K/ul (4.8-10.8)
[2022-02-01 09:28] LABS: BUN Creatinine Ratio 24.1 (10-20); Calcium 9.4 mg/dl (8.5-10.1); Creatinine Clr Calc Pharmacy 92.7 ml/min; Est GFR (African American) 109.5 ml/min; Est GFR (Non-African American) 94.5 ml/min; Potassium 3.9 mmol/L (3.5-5.1)
--- NOTE | 2022-02-01 11:42 | Hospitalist Progress Note ---
Date of Service February 01, 2022 Assessment & Plan (1) Intractable back pain: (2) Acute left lumbar radiculopathy: (3) Intervertebral disc protrusion: Plan: Patient is 61 y/o M with PMH GERD, low back pain presented to ER with c/o worsening low back pain, pain to left buttock with radiation to left leg. MRI Lumbar Spine: 1. Multilevel lumbar spondylosis as described above most pronounced at the L3-L4 level which demonstrates severe central canal narrowing secondary to a focal central disc protrusion and ligamentum/facet hypertrophy. 2. There is a small left paracentral focal disc protrusion at L5-S1 which abuts and slightly displaces the transiting left S1 nerve root. 3. No fracture or subluxation. Plan: -Continue pain control with ibuprofen, oxycodone and Dilaudid. -Await orthospine evaluation -PT OT after Ortho spine evaluation (4) UTI (urinary tract infection): Plan: UA: +nitrite, 4+bacteria chronic urinary frequency, denies dysuria, hematuria, urgency or retention. No CVA tenderness Urine culture shows gram-negative bacilli Continue on ceftriaxone day 2 (5) GERD (gastroesophageal reflux disease): Plan: Continue PPI (6) Tobacco use: Plan: Trying to quit. Encouraged smoking cessation Nicotine patch DVT Prophylaxis SCDs Full code Admission and Anticipated Discharge Date Admission Date: January 31, 2022 Subjective Patient seen and examined at bedside. He is lying in the bed; complains of severe lower back pain radiating down his left leg. He denies any fever, chills, chest pain, shortness of breath, abdominal pain or urinary symptoms. Review of Systems Review of Systems: All systems reviewed & are unremarkable except as noted in Subjective Physical Exam Physical Exam: Constitutional: Awake alert oriented x3. In moderate discom fort due to pain. Respiratory: normal respiratory effort, lungs clear to auscultation, no wheeze, rales, rhonchi. Normal insp/exp effort, no accessory muscle use Cardiovascular: RRR, no murmur, no edema Vessels: no JVD or carotid bruit Chest: normal inspection of chest Abdomen: normal bowel sounds, soft, nontender, no hepatosplenomegaly Musculoskeletal: Tenderness on palpation on lower back and left buttocks. Left leg straight leg 25 degrees. Skin: no rashes, warm and dry normal turgor Neurologic: PERRL, EOMI, accommodation nl, no face palsy, no dysarthria CN's II- XI intact bilaterally and moves all extremities Psychiatric: A+Ox3, euthymic affect Lymphatic: no cervical or axillary lymphadenopathy : deferred Results & Data Results & Data ([facility]) Vital Signs (Past 12 Hours) Vital Signs Temp Pulse Resp BP Pulse Ox O2 Del Method 02/01/22 07:17 36.8 C 77 20 150/89 H 97 Room Air Laboratory Results Laboratory Results WBC 12.08 K/ul (4.8-10.8) H 02/01/22 08:11 RBC 4.70 M/uL (4.63-6.08) 02/01/22 08:11 Hgb 15.0 g/dl (14.0-18.0) 02/01/22 08:11 Hct 43.9 % (40.1-51.0) 02/01/22 08:11 MCV 93.4 fL (80.0-100.0) 02/01/22 08:11 MCH 31.9 pg (25.0-34.0) 02/01/22 08:11 MCHC 34.2 g/dL (32.0-36.0) 02/01/22 08:11 RDW Std Deviation 45.1 fL (36.4-46.3) 02/01/22 08:11 RDW Coeff of Eli 13.0 % (11.5-14.5) 02/01/22 08:11 Plt Count 280 K/uL (130-400) 02/01/22 08:11 MPV 9.2 fL (9.4-12.4) L 02/01/22 08:11 Immature Gran % (Auto) 0.3 % 01/31/22 12:27 Neut % (Auto) 66.6 % 01/31/22 12:27 Lymph % (Auto) 24.0 % 01/31/22 12:27 [place] % (Auto) 7.3 % 01/31/22 12:27 Eos % (Auto) 1.4 % 01/31/22 12:27 Baso % (Auto) 0.4 % 01/31/22 12:27 Neut # (Auto) 4.87 K/uL (1.4-6.5) 01/31/22 12:27 Lymph # (Auto) 1.75 K/uL (1.2-3.4) 01/31/22 12: [place] # (Auto) 0.53 K/uL (0.24-0.82) 01/31/22 12: Eos # (Auto) 0.10 K/uL (0-0.50) 01/31/22 12: Baso # (Auto) 0.03 K/uL (0-0.2) 01/31/22 12: Immature Gran # (Auto) 0.02 K/uL (0.00-0.02) 01/31/22 12: PT 10.3 Seconds (9.0-12.0) 01/31/22 12: INR 1.0 (0.9-1.1) 01/31/22 12: Sodium 138 mmol/L (136-145) 02/01/22 08:11 Potassium 3.9 mmol/L (3.5-5.1) 02/01/22 08:11 Chloride 104 mmol/L (98-107) 02/01/22 08:11 Carbon Dioxide 27 mmol/L (21-32) 02/01/22 08:11 Anion Gap 7 (3-11) 02/01/22 08:11 BUN 21 mg/dl (6-23) 02/01/22 08:11 Creatinine 0.87 mg/dl (0.6-1.4) 02/01/22 08:11 Est Cr Clr Drug Dosing 92.7 ml/min 02/01/22 08:11 Est GFR ( Amer) 109.5 ml/min 02/01/22 08:11 Est GFR (Non-Af Amer) 94.5 ml/min 02/01/22 08:11 BUN/Creatinine Ratio 24.1 (10-20) H 02/01/22 08:11 Glucose 137 mg/dl (70-99(Fasting)) H 02/01/22 08:11 Calcium 9.4 mg/dl (8.5-10.1) 02/01/22 08:11 Total Bilirubin 0.3 mg/dl (0.2-1.0) 01/31/22 12: AST 16 U/L (13-39) 01/31/22 12:27 ALT 15 U/L (7-52) 01/31/22 12:27 Alkaline Phosphatase 87 U/L (34-104) 01/31/22 12: Total Protein 6.4 gm/dl (6.0-8.3) 01/31/22 12: Albumin 4.1 gm/dl (3.4-5.0) 01/31/22 12: Globulin 2.3 gm/dl (2.5-4.0) L 01/31/22 12: Albumin/Globulin Ratio 1.8 (0.9-2) 01/31/22 12: Urine Color Yellow 01/31/22 14:25 Urine Appearance Clear (Clear) 01/31/22 14: Urine pH 5.5 (4.5-7.5) 01/31/22 14:25 Ur Specific [place] 1.014 (1.000-1.030) 01/31/22 14:25 Urine Protein Negative (Negative) 01/31/22 14:25 Urine Glucose (UA) Negative (Negative) 01/31/22 14:25 Urine Ketones Negative (Negative) 01/31/22 14:25 Urine Blood Negative (Negative) 01/31/22 14:25 Urine Nitrite Positive (Negative) A 01/31/22 14:25 Urine Bilirubin Negative (Negative) 01/31/22 14:25 Urine Urobilinogen Negative (Negative) 01/31/22 14:25 Ur Leukocyte Esterase Negative (Negative) 01/31/22 14:25 Urine WBC (Auto) 1-5 /hpf (0-5) 01/31/22 14:25 Urine RBC (Auto) 0-4 /hpf (0-4) 01/31/22 14:25 U Hyaline Cast (Auto) 0 /lpf (0-5) 01/31/22 14:25 U Epithel Cells (Auto) 0-5 /lpf (0-5) 01/31/22 14:25 Urine Bacteria (Auto) 4+ (Negative) H 01/31/22 14: Acetaminophen < 3 ug/ml (10-30) L 02/01/22 08:11 SARS-CoV-2, RNA, NAAT NEGATIVE (NEGATIVE) 01/31/22 18:50 Impressions Lumbar Spine MRI 01/31/22 12:09 LUMBAR SPINE MRI HISTORY: severe L low back pain into leg, numbness TECHNIQUE: Multiplanar multisequence MRI of the lumbar spine was performed without the use of contrast. COMPARISON: Lumbar spine 01/31/2022. FINDINGS: For the purpose of the report the L5-S1 disc space will be located on axial image 28 of 31. Straightening of the lumbar spine. No fracture or subluxation. Mild disc space narrowing at L2-L3, L3-L4, L4-L5. Severe disc space narrowing at L5-S1. Moderate facet degenerative changes at L3-L4. Mild facet degenerative changes throughout the remaining lumbar spine. The partially visualized 2 cm T2 hyperintense lesion within the right kidney. This favors a cyst. Paravertebral soft tissue tissues are unremarkable. Mild marrow edema at the L3-L4 facets and L3 transverse pr ocess. This is likely due to the degenerative changes. Interspinous degenerative changes at L3-L4. The conus terminates at the T12-L1 disc space level. L1-L2: The small central/left paracentral broad-based posterior disc protrusion without significant central canal or right-sided neural foraminal narrowing. There is mild left-sided neural foraminal narrowing. L2-L3: Small broad-based posterior disc bulge without significant central canal narrowing. There is mild bilateral neural foraminal narrowing. L3-L4: Broad-based posterior disc bulge with a 9 x 6 mm focal central disc protrusion. Conjunction with the ligamentum and facet hypertrophy this results in severe central canal narrowing with the AP diameter measuring 5 mm. There is also moderate bilateral neural foraminal narrowing due to the disc bulge and facet hypertrophy. L4-L5: Broad-based posterior disc bulge with ligamentum and facet hypertrophy resulting in cyjg-[id number]-nthaucbt central canal and moderate bilateral neural christelle inal narrowing. L5-S1: Broad-based posterior disc bulge with a small left paracentral focal disc protrusion measuring 4 mm. This abuts and slightly displaces the transiting left S1 nerve root. No significant central canal narrowing. There is moderate bilateral neural foraminal narrowing due to the disc bulge and facet hypertrophy. IMPRESSION: 1. Multilevel lumbar spondylosis as described above most pronounced at the L3-L4 level which demonstrates severe central canal narrowing secondary to a focal central disc protrusion and ligamentum/facet hypertrophy. 2. There is a small left paracentral focal disc protrusion at L5-S1 which abuts and slightly displaces the transiting left S1 nerve root. 3. No fracture or subluxation. ACT 112: Negative or not required by law. Electronically signed by: Hank West M.D. 01/31/2022 5:46 PM Lumbar Spine X-Ray 01/31/22 12:09 LUMBAR SPINE 5 VIEWS HISTORY: severe L low back pain into leg, numbness COMPARISON: None. FINDINGS: There is no fracture. No subluxation. Straightening of the lumbar spine. The visualized sacrum is intact. Mild disc space narrowing at L3-L4 and L4-5. Severe disc space narrowing at L5-S1 with endplate osteophytes. [id number] facet degenerative changes within the mid to lower lumbar spine. Old, healed right lower rib fractures. IMPRESSION: 1. No fractures within the lumbar spine. 2. Degenerative changes as described above. ACT 112: Negative or not required by law. Electronically signed by: Hank West M.D. 01/31/2022 1:15 PM
[2022-02-01] MEDS: oxyCODONE HCL IR 5 MG TAB (IMMEDIATE RELEASE) PO PRN ×2 (11:53→18:59)
--- NOTE | 2022-02-01 15:52 | Orthopedic Consultation ---
Date of Consultation February 01, 2022 Assessment & Plan (1) Acute left lumbar radiculopathy: MRI lumbar spine demonstrates spinal stenosis most impressive at L3-L4 followed by L4-L5. This undoubtedly is extremity to his symptom complex. Prior to recommend any surgical invention it would be worth trying a course of interventional pain management. I would also like to obtain MRI of the cervical spine to rule out neural compression from the neck. Patient stands agrees. History of Present Illness Reason for Consultation: Back and left leg pain Attending Physician: Ceasar Barrera MD History of Present Illness This is a 61-year-old male who presents with marked clinical status over the past several weeks. He describes pain in left buttock posterior thigh extending below the knee. Markedly limits his ability to sit stand and ambulate. His legs get tired with any prolonged walking. He has not had any recent injections in his lumbar spine. He has no history of lumbar surgery. He is also complaining significant right arm pain and has a history of cervical spinal stenosis but has not had this worked up for many years. Allergies Allergy/AdvReac Type Severity Reaction Status Date / Time bee venom protein (honey bee) Allergy Intermediate EXTRA Verified 01/31/22 18:34 SWELLING AT SITES Home Medications Medication Instructions Recorded Confirmed Type meloxicam 15 mg tablet 15 mg PO DAILY 12/15/18 01/31/22 History gabapentin 300 mg capsule 600 mg PO TIDM 08/27/20 01/31/22 History omeprazole 20 mg capsule,delayed 20 mg PO DAILYBB 08/27/20 01/31/22 History release acetaminophen 500 mg tablet 1,000 mg PO DIRECTED PRN Pain 01/31/22 01/31/22 History (Tylenol Extra Strength) methocarbamol 750 mg tablet 750 mg PO TID 01/31/22 01/31/22 History Patient History Medical History Contact with powered saw as cause of accidental injury GERD (gastroesophageal reflux disease) History of herniated intervertebral disc Hx of fracture of wrist Tobacco use Traumatic amputation of multiple fingers Surgical History H/O wrist surgery 1992, fusion wrist Family History (Updated 01/31/22 @ 19:40 by Yudy Wyatt PA-C) Mother Asthma Father Diabetes Social History Smoking Status: Current every day smoker Tobacco Type: Cigarettes Cigarettes Per Day: 1/2ppd; Second Hand Exposure: Yes; Do You Dip or Chew Tobacco: No; Tobacco Cessation Education Requested by Patient: No Hx Alcohol Use: Yes (quit 7 years ago) Alcohol type: beer Hx Substance Use: Yes Non-Prescribed Medications: Marijuana Last Used Substance: Days (ago) Last Used Substance Other:: quit a few years ago Preferred Language: Syriac Communication Ability: Effective 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 He is reasonable bilateral plantar flexion dorsiflexion quadriceps. Sensory is intact. There is worse pain with straight leg raising on the left compared to the right. He has a fused right wrist and injury to his left hand with loss of the distal phalanx of all of his fingers. Results & Data ([facility]) Vital Signs (Past 12 Hours) Vital Signs Temp Pulse Resp BP Pulse Ox O2 Del Method 02/01/22 15:07 37.0 C 77 18 148/91 H 94 Room Air 02/01/22 07:17 36.8 C 77 20 150/89 H 97 Room Air
--- NOTE | 2022-02-01 17:57 | Magnetic Resonance Report ---
MRI OF THE CERVICAL SPINE WITHOUT CONTRAST CLINICAL HISTORY: Bilateral arm pain and numbness. COMPARISON: Cervical spine MRI June 01, 2017. TECHNIQUE: Utilizing a 1.5 Yoli magnet and dedicated coil, multiplanar, multiecho imaging of the ce rvical spine was performed without IV contrast. FINDINGS: Alignment of the cervical spine is unchanged since MRI of June 01, 2017. Slight retrolisthesis of C4 on C5 is unchanged. Vertebral body heights are maintained. There is no marrow edema or replacement. No intracanalicular mass or fluid collection. Cervical cord signal and caliber are normal. Paraverteb ral soft tissues are unremarkable. There has been mild progression of multilevel degenerative changes within the cervical spine since previous MRI. C2-C3: Right paracentral disc osteophyte complex contacts the right ventral aspect of the cord. Ther e is mild central canal narrowing. This has progressed since previous MRI. There is mild facet arthro sis. The neural foramen are patent. C3-C4: Disc space narrowing is noted. There is broad-based posterior disc osteophyte complex which c ontacts the ventral aspect of the cord. There is moderate central canal stenosis. Patent AP diameter canal is 6.6 mm. Severe left and moderate right neural foraminal stenosis is due to facet arthrosis a nd uncovertebral hypertrophy. C4-C5: Broad-based disc osteophyte complex with superimposed central disc protrusion indents the kenneth tral aspect of the cord. This results in moderate to severe central canal stenosis. Patent AP diamete r canal is 5.5 mm. There is no cord signal abnormality. There is severe bilateral neural foraminal st enosis due to facet arthrosis and uncovertebral hypertrophy. C5-C6: Disc space narrowing is noted. Disc osteophyte complex, eccentric to the right that contacts the ventral aspect of the cord. There is mild to moderate narrowing of the central canal. Severe righ t and moderate left neural foraminal stenosis is present. C6-C7: Moderate disc space narrowing is noted. There is posterior disc osteophyte complex which resu lts in mild central canal stenosis. There is severe bilateral neural foraminal stenosis. C7-T1: Central canal and neural foramen are patent. IMPRESSION: 1. Moderate multilevel degenerative changes within the cervical spine which have mildly progressed si nce previous MRI. Moderate to severe central canal stenosis at C4-C5. Moderate central canal stenosis at C3-C4 and mild to moderate central canal narrowing at C5-C6. 2. Severe multilevel neural foraminal stenosis, as detailed above. 3. Normal cervical cord signal and caliber. ACT 112: Negative or not required by law. Electronically signed by: Doe Dunn M.D. 02/01/2022 5:55 PM
[2022-02-01] MEDS: cefTRIAXone SODIUM 1,000 MG in DEXTROSE 5% AD-VAN 50 ML IV SCH (18:20)
[2022-02-02] MEDS: HYDROmorphone INJ 1 MG/ML SYRINGE IV PRN ×5 (00:27→23:00)
[2022-02-02] MEDS: IBUPROFEN 800 MG TAB PO SCH ×2 (05:36→15:28)
[2022-02-02] MEDS: PANTOprazole 40 MG TAB PO SCH (05:36)
[2022-02-02 09:40] LABS: Basophils # (auto) 0.05 K/uL (0-0.2); Basophils % (auto) 0.6 %; Eosinophils # (auto) 0.12 K/uL (0-0.50); Eosinophils % (auto) 1.3 %; Hematocrit (blood only) 45.7 % (40.1-51.0); Hemoglobin 15.5 g/dl (14.0-18.0); Immature Granulocytes # (auto) 0.02 K/uL (0.00-0.02); Immature Granulocytes % (auto) 0.2 %; Lymphocytes # (auto) 2.94 K/uL (1.2-3.4); Lymphocytes % (auto) 32.8 %; Mean Corpuscular Hemoglobin 31.4 pg (25.0-34.0); Mean Corpuscular Hgb Conc 33.9 g/dL (32.0-36.0); Mean Corpuscular Volume 92.7 fL (80.0-100.0); Mean Platelet Volume 9.1 fL (9.4-12.4); Monocytes # (auto) 0.69 K/uL (0.24-0.82); Monocytes % (auto) 7.7 %; Neutrophils # (auto) 5.13 K/uL (1.4-6.5); Neutrophils % (auto) 57.4 %; Platelet Count 278 K/uL (130-400); RDW Coefficient of Variation 13.2 % (11.5-14.5); RDW Standard Deviation 44.9 fL (36.4-46.3); Red Blood Count 4.93 M/uL (4.63-6.08); White Blood Count 8.95 K/ul (4.8-10.8)
[2022-02-02 10:14] LABS: BUN Creatinine Ratio 25.3 (10-20); Calcium 9.9 mg/dl (8.5-10.1); Creatinine Clr Calc Pharmacy 84.9 ml/min; Est GFR (African American) 101.1 ml/min; Est GFR (Non-African American) 87.3 ml/min; Potassium 4.2 mmol/L (3.5-5.1)
[2022-02-02] MEDS: GABAPENTIN 300 MG CAP PO SCH ×3 (10:15→16:32)
[2022-02-02] MEDS: METHOCARBAMOL 750 MG TABLET PO SCH ×3 (10:15→21:16)
[2022-02-02] MEDS: NICOTINE 14 MG/24 HR PATCH TD SCH (10:15)
[2022-02-02] MEDS: diazePAM 2 MG TABLET PO SCH ×3 (10:17→21:15)
[2022-02-02] MEDS: LIDOCAINE 5% 1 PATCH TD SCH (10:19)
[2022-02-02] MEDS: POLYETHYLENE (MIRALAX) 17 GM PACK PO SCH (11:55)
[2022-02-02] MEDS: DOCUSATE SODIUM 100 MG CAP PO SCH ×2 (11:55→21:15)
--- NOTE | 2022-02-02 13:25 | Pain Management Consultation ---
Date of Consultation February 02, 2022 Assessment & Plan (1) Acute left lumbar radiculopathy: (2) UTI (urinary tract infection): Plan 1. Patient not a candidate for lumbar epidural steroid injection at this time due to current urinary tract infection. Once urinary tract infection is cleared we could consider outpatient injection. 2. I have ordered him a Medrol Stefano to help diminish pain. 3. Continue Gabapentin 600mg three times daily. Consider increasing to 800mg. 4. Continue Oxycodone and IV Dilaudid for breakthrough pain. History of Present Illness Reason for Consultation: Back pain Attending Physician: Veena Pratt MD History of Present Illness This is a 61-year-old male that has been admitted to the [facility] for back pain. Patient states that the pain has been ongoing for 3 weeks without any known injury. He describes a sharp stabbing pain in the left butto ck and numbness, tingling, burning down the left lateral thigh and anterior aguilar. Pain is aggravated with standing and walking. Lying supine does provide pain relief. Outpatient he has tried acupuncture, chiropractics, Tylenol, meloxicam, oral steroids, and methocarbamol. Pain is rated 6/10 currently. He is on gabapentin 600 mg 3 times daily for chronic numbness and tingling in the hands. Currently receiving Oxycodone and IV Dilaudid for pain relief with improvement. No bowel/bladder incontinence, saddle anesthesia, foot drop, falls. Case discussed with Dr. Neida Stacy Allergies Allergy/AdvReac Type Severity Reaction Status Date / Time bee venom protein (honey bee) Allergy Intermediate EXTRA Verified 01/31/22 18:34 SWELLING AT SITES Home Medications Medication Instructions Recorded Confirmed Type meloxicam 15 mg tablet 15 mg PO DAILY 12/15/18 01/31/22 History gabapentin 300 mg capsule 600 mg PO TIDM 08/27/20 01/31/22 History omeprazole 20 mg capsule,delayed 20 mg PO DAILYBB 08/27/20 01/31/22 History release acetaminophen 500 mg tablet 1,000 mg PO DIRECTED PRN Pain 01/31/22 01/31/22 History (Tylenol Extra Strength) methocarbamol 750 mg tablet 750 mg PO TID 01/31/22 01/31/22 History Patient History Medical History Contact with powered saw as cause of accidental injury GERD (gastroesophageal reflux disease) History of herniated intervertebral disc Hx of fracture of wrist Tobacco use Traumatic amputation of multiple fingers Surgical History H/O wrist surgery 1993, fusion wrist Family History Mother Asthma Father Diabetes Social History Smoking Status: Current every day smoker Tobacco Type: Cigarettes Cigarettes Per Day: 1/2ppd; Second Hand Exposure: Yes; Do You Dip or Chew Tobacco: No; Tobacco Cessation Education Requested by Patient: No Hx Alcohol Use: Yes (quit 7 years ago) Alcohol type: beer Hx Substance Use: Yes Non-Prescribed Medications: Marijuana Last Used Substance: Days (ago) Last Used Substance Other:: quit a few years ago Preferred Language: Greek Communication Ability: Effective 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 Laying supine in hospital bed. HEAD/FACE: Normocephalic and atraumatic. EYES: No drainage or conjunctival injection. ENT: Nose without bleeding or discharge. Oral mucosa moist. NECK: Full ROM without apparent pain. No swelling or masses noted. RESPIRATORY: Patient with unlabored breathing. No signs of respiratory distress. CHEST/AXILLA: Chest movement symmetrical. No deformities noted. CARDIOVASCULAR: Patients heart rate is regular, with pulse rate as documented. No edema noted. ABDOMEN/GI: No distension BACK: Guarded movement. There is no tenderness of the lumbar spine. There is moderate tenderness of the left gluteus. No myofascial spasm or trigger points noted. SKIN: [place], warm and dry. No rash noted. MS/EXTREMITY: No swelling, no deformities. 5/5 strength of the bilateral lower extremities. NEURO: Alert and appears oriented. Speech is fluent. Cranial Nerves are grossly intact. PSYCH: Alert, pleasant, affect is calm Results ([facility]) Diagnostic Review MRI Findings: MRI OF THE CERVICAL SPINE WITHOUT CONTRAST CLINICAL HISTORY: Bilateral arm pain and numbness. COMPARISON: Cervical spine MRI June 01, 2017. TECHNIQUE: Utilizing a 1.5 Yoli magnet and dedicated coil, multiplanar, multiecho imaging of the cervical spine was performed without IV contrast. FINDINGS: Alignment of the cervical spine is unchanged since MRI of June 01, 2017. Slight retrolisthesis of C4 on C5 is unchanged. Vertebral body heights are maintained. There is no marrow edema or replacement. No intracanalicular mass or fluid collection. Cervical cord signal and caliber are normal. Paravertebral soft tissues are unremarkable. There has been mild progression of multilevel degenerative changes within the cervical spine since previous MRI. C2-C3: Right paracentral disc osteophyte complex contacts the right ventral aspect of the cord. There is mild central canal narrowing. This has progressed since previous MRI. There is mild facet arthrosis. The neural foramen are patent. C3-C4: Disc space narrowing is noted. There is broad-based posterior disc oste ophyte complex which contacts the ventral aspect of the cord. There is moderate central canal stenosis. Patent AP diameter canal is 6.6 mm. Severe left and moderate right neural foraminal stenosis is due to facet arthrosis and uncovertebral hypertrophy. C4-C5: Broad-based disc osteophyte complex with superimposed central disc protrusion indents the ventral aspect of the cord. This results in moderate to severe central canal stenosis. Patent AP diameter canal is 5.5 mm. There is no cord signal abnormality. There is severe bilateral neural foraminal stenosis due to facet arthrosis and uncovertebral hypertrophy. C5-C6: Disc space narrowing is noted. Disc osteophyte complex, eccentric to the right that contacts the ventral aspect of the cord. There is mild to moderate narrowing of the central canal. Severe right and moderate left neural foraminal stenosis is present. C6-C7: Moderate disc space narrowing is noted. There is posterior disc osteophyte complex which results in mild central canal stenosis. There is severe bilateral neural foraminal stenosis. C7-T1: Central canal and neural foramen are patent. IMPRESSION: 1. Moderate multilevel degenerative changes within the cervical spine which have mildly progressed since previous MRI. Moderate to severe central canal stenosis at C4-C5. Moderate central canal stenosis at C3-C4 and mild to moderate central canal narrowing at C5-C6. 2. Severe multilevel neural foraminal stenosis, as detailed above. 3. Normal cervical cord signal and caliber. ACT 112: Negative or not required by law. Electronically signed by: Doe Dunn M.D. 02/01/2022 5:55 PM LUMBAR SPINE MRI HISTORY: severe L low back pain into leg, numbness TECHNIQUE: Multiplanar multisequence MRI of the lumbar spine was performed without the use of contrast. COMPARISON: Lumbar spine 01/31/2022. FINDINGS: For the purpose of the report the L5-S1 disc space will be located on axial image 28 of 31. Straightening of the lumbar spine. No fracture or subluxation. Mild disc space narrowing at L2-L3, L3-L4, L4-L5. Severe disc space narrowing at L5-S1. Moderate facet degenerative changes at L3-L4. Mild facet degenerative changes throughout the remaining lumbar spine. The partially visualized 2 cm T2 hyperintense lesion within the right kidney. This favors a cyst. Paravertebral soft tissue tissues are unremarkable. Mild marrow edema at the L3-L4 facets and L3 transverse process. This is likely due to the degenerative changes. Interspinous degenerative changes at L3-L4. The conus terminates at the T12-L1 disc space level. L1-L2: The small central/left paracentral broad-based posterior disc protrusion without significant central canal or right-sided neural foraminal narrowing. There is mild left-sided neural foraminal narrowing. L2-L3: Small broad-based posterior disc bulge without significant central canal narrowing. There is mild bilateral neural foraminal narrowing. L3-L4: Broad-based posterior disc bulge with a 9 x 6 mm focal central disc protrusion. Conjunction with the ligamentum and facet hypertrophy this results in severe central canal narrowing with the AP diameter measuring 5 mm. There is also moderate bilateral neural foraminal narrowing due to the disc bulge and facet hypertrophy. L4-L5: Broad-based posterior disc bulge with ligamentum and facet hypertrophy resulting in [id number]-aafscoog central canal and moderate bilateral neural foraminal narrowing. L5-S1: Broad-based posterior disc bulge with a small left paracentral focal disc protrusion measuring 4 mm. This abuts and slightly displaces the transiting left S1 nerve root. No significant central canal narrowing. There is moderate bilateral neural foraminal narrowing due to the disc bulge and facet hypertrophy. IMPRESSION: 1. Multilevel lumbar spondylosis as described above most pronounced at the L3-L4 level which demonstrates severe central canal narrowing secondary to a focal central disc protrusion and ligamentum/facet hypertrophy. 2. There is a small left paracentral focal disc protrusion at L5-S1 which abuts and slightly displaces the transiting left S1 nerve root. 3. No fracture or subluxation. ACT 112: Negative or not required by law. Electronically signed by: Hank West M.D. 01/31/2022 5:46 PM
[2022-02-02] MEDS ORDERED: methylPREDNISolone 4 MG TAB, 6 DAY TAPER PO SCH (13:30)
[2022-02-02] MEDS: methylPREDNISolone 4 MG TAB PO SCH ×4 (14:18→21:16)
--- NOTE | 2022-02-02 14:49 | Hospitalist Progress Note ---
Date of Service February 02, 2022 Assessment & Plan (1) Intractable back pain: (2) Acute left lumbar radiculopathy: (3) Intervertebral disc protrusion: Plan: Patient is 61 y/o M with PMH GERD, low back pain presented to ER with c/o worsening low back pain, pain to left buttock with radiation to left leg. MRI Lumbar Spine: 1. Multilevel lumbar spondylosis as described above most pronounced at the L3-L4 level which demonstrates severe central canal narrowing secondary to a focal central disc protrusion and ligamentum/facet hypertrophy. 2. There is a small left paracentral focal disc protrusion at L5-S1 which abuts and slightly displaces the transiting left S1 nerve root. 3. No fracture or subluxation. MRI C- spine: 1. Moderate multilevel degenerative changes within the cervical spine which have mildly progressed since previous MRI. Moderate to severe central canal stenosis at C4-C5. Moderate central canal stenosis at C3-C4 and mild to moderate central canal narrowing at C5-C6. 2. Severe multilevel neural foraminal stenosis, as detailed above. 3. Normal cervical cord signal and caliber. Plan: -Continue pain control. -Orthospine evaluated, recommends trying interventional pain management. -Pain management evaluated, not a candidate for lumbar epidural steroid injection at this time due to current UTI, will need to pursue as outpatient for injection. Continue with Medrol Dosepak to help diminish pain and also continue with gabapentin 3 times daily and oxycodone for breakthrough pain. -PT/OT, CM to assist w/ DC planning. (4) UTI (urinary tract infection): Plan: UA: +nitrite, 4+bacteria chronic urinary frequency, denies dysuria, hematuria, urgency or retention. No CVA tenderness Urine culture shows gram-negative bacilli Continue on ceftriaxone (5) GERD (gastroesophageal reflux disease): Plan: Continue PPI (6) Tobacco use: Plan: Trying to quit. Encouraged smoking cessation Nicotine patch DVT Prophylaxis SCDs Full code Admission and Anticipated Discharge Date Admission Date: February 01, 2022 Subjective Patient seen and examined at bedside as a follow-up of intractable back pain with acute left lumbar radiculopathy. Patient was lying in bed, on room air, denies any new acute event overnight, reports pain under control at bedside exam but was having much more pain early in the morning. He reports pain being bothersome with his daily activities. He has not moved bowel in last few days according to him. We will add bowel regimen. Denies headache/fever/chills/sore throat/cough/other review of symptoms. He reports eating okay. Physical Exam Physical Exam: Constitutional: Awake alert oriented x3. NAD, On RA. Respiratory: normal respiratory effort, lungs clear to auscultation, no wheeze, rales, rhonchi. Normal insp/exp effort, no accessory muscle use Cardiovascular: RRR, no murmur, no edema Vessels: no JVD or carotid bruit Chest: normal inspection of chest Abdomen: normal bowel sounds, soft, nontender, no hepatosplenomegaly Musculoskeletal: Tenderness on palpation on lower back and left buttocks. Skin: no rashes, warm and dry normal turgor Neurologic: PERRL, EOMI, accommodation nl, no face palsy, no dysarthria CN's II- XI intact bilaterally and moves all extremities Psychiatric: A+Ox3, euthymic affect Lymphatic: no cervical or axillary lymphadenopathy Results & Data Results & Data ([facility]) Vital Signs (Past 12 Hours) Vital Signs Temp Pulse Resp BP Pulse Ox O2 Del Method 02/02/22 07:19 36.8 C 67 16 144/84 H 94 Room Air
[2022-02-02] MEDS: cefTRIAXone SODIUM 1,000 MG in DEXTROSE 5% AD-VAN 50 ML IV SCH (17:24)
[2022-02-03] MEDS: HYDROmorphone INJ 1 MG/ML SYRINGE IV PRN ×3 (02:03→08:24)
[2022-02-03] MEDS: methylPREDNISolone 4 MG TAB PO SCH ×3 (05:45→17:41)
[2022-02-03] MEDS: PANTOprazole 40 MG TAB PO SCH (05:45)
[2022-02-03] MEDS: NICOTINE 14 MG/24 HR PATCH TD SCH (08:18)
[2022-02-03] MEDS: GABAPENTIN 300 MG CAP PO SCH ×3 (08:18→16:58)
[2022-02-03] MEDS: POLYETHYLENE (MIRALAX) 17 GM PACK PO SCH (08:19)
[2022-02-03] MEDS: DOCUSATE SODIUM 100 MG CAP PO SCH (08:19)
[2022-02-03] MEDS: METHOCARBAMOL 750 MG TABLET PO SCH ×2 (08:19→13:59)
[2022-02-03] MEDS: LIDOCAINE 5% 1 PATCH TD SCH (08:20)
[2022-02-03] MEDS: diazePAM 2 MG TABLET PO SCH ×2 (08:24→14:15)
[2022-02-03] MEDS ORDERED: HYDROmorphone INJ 1 MG/ML SYRINGE IV PRN (08:45)
--- NOTE | 2022-02-03 13:54 | Hospitalist Progress Note ---
Date of Service February 03, 2022 Assessment & Plan (1) Intractable back pain: (2) Acute left lumbar radiculopathy: (3) Intervertebral disc protrusion: Plan: Patient is 61 y/o M with PMH GERD, low back pain presented to ER with c/o worsening low back pain, pain to left buttock with radiation to left leg. MRI Lumbar Spine: 1. Multilevel lumbar spondylosis as described above most pronounced at the L3-L4 level which demonstrates severe central canal narrowing secondary to a focal central disc protrusion and ligamentum/facet hypertrophy. 2. There is a small left paracentral focal disc protrusion at L5-S1 which abuts and slightly displaces the transiting left S1 nerve root. 3. No fracture or subluxation. MRI C- spine: 1. Moderate multilevel degenerative changes within the cervical spine which have mildly progressed since previous MRI. Moderate to severe central canal stenosis at C4-C5. Moderate central canal stenosis at C3-C4 and mild to moderate central canal narrowing at C5-C6. 2. Severe multilevel neural foraminal stenosis, as detailed above. 3. Normal cervical cord signal and caliber. Plan: -Continue pain control. -Orthospine evaluated, recommends trying interventional pain management. -Pain management evaluated, not a candidate for lumbar epidural steroid injection at this time due to current UTI, will need to pursue as outpatient for injection. Continue with Medrol Dosepak to help diminish pain and also continue with gabapentin 3 times daily and oxycodone for breakthrough pain. -PT/OT, CM to assist w/ DC planning. (4) UTI (urinary tract infection): Plan: UA: +nitrite, 4+bacteria chronic urinary frequency, denies dysuria, hematuria, urgency or retention. No CVA tenderness Urine culture shows gram-negative bacilli Continue on ceftriaxone (5) GERD (gastroesophageal reflux disease): Plan: Continue PPI (6) Tobacco use: Plan: Trying to quit. Encouraged smoking cessation Nicotine patch DVT Prophylaxis SCDs Full code Admission and Anticipated Discharge Date Admission Date: February 01, 2022 Results & Data Results & Data ([facility]) Vital Signs (Past 12 Hours) Vital Signs Temp Pulse Resp BP Pulse Ox O2 Del Method 02/03/22 08:15 36.5 C 75 16 149/98 H 94 Room Air Medications Administered Current Inpatient Medications Diazepam (Diazepam 2 Mg Tablet) 2 mg PO TID JOSE Stop: 03/02/22 21:49 Last Admin: 02/03/22 08:24 Dose: 2 mg Docusate Sodium (Docusate Sodium 100 Mg Cap) 100 mg PO BID [facility] Stop: 03/04/22 11:59 Last Admin: 02/03/22 08:19 Dose: 100 mg Gabapentin (Gabapentin 300 Mg Cap) 600 mg PO TIDM [facility] Stop: 03/03/22 07:59 Last Admin: 02/03/22 12:09 Dose: 600 mg Hydromorphone HCl (Hydromorphone Inj 1 Mg/Ml Syringe) 0.5 mg IV Q4H PRN PRN Reason: Pain (6,7,8,9,10) Stop: 02/15/22 09:56 Ceftriaxone Sodium 1,000 mg/ (Dextrose) 50 mls @ 100 mls/hr IV Q24H [facility]; Protocol Stop: 02/06/22 17:59 Last Infusion: 02/02/22 18:02 Dose: Infused Lidocaine (Lidocaine 5% 1 Patch) 1 patch TD QAM [facility] Stop: 03/03/22 08:59 Last Admin: 02/03/22 08:20 Dose: 1 patch Methocarbamol (Methocarbamol 750 Mg Tablet) 750 mg PO TID JOSE Stop: 03/03/22 08:59 Last Admin: 02/03/22 08:19 Dose: 750 mg Methylprednisolone (Methylprednisolone 4 Mg Tab) 4 mg PO 0700,1300,1800 [facility] Stop: 02/03/22 18:01 Last Admin: 02/03/22 12:10 Dose: 4 mg Methylprednisolone (Methylprednisolone 4 Mg Tab) 8 mg PO HS [facility] Stop: 02/03/22 21:01 Methylprednisolone (Methylprednisolone 4 Mg Tab) 4 mg PO 0700,1300,1800,2100 [facility] Stop: 02/04/22 21:01 Methylprednisolone (Methylprednisolone 4 Mg Tab) 4 mg PO 0700,1300,2100 [facility] Stop: 02/05/22 21:01 Methylprednisolone (Methylprednisolone 4 Mg Tab) 4 mg PO 0700,2100 [facility] Stop: 02/06/22 21:01 Methylprednisolone (Methylprednisolone 4 Mg Tab) 4 mg PO 0700 [facility] Stop: 02/07/22 07:01 Miscellaneous (Remove Lidoderm Patch) 1 each N/A DAILY@2100 [facility] Stop: 03/02/22 23:29 Last Admin: 02/02/22 21:16 Dose: 1 each Miscellaneous (Remove Nicoderm Patch) 1 each N/A DAILY@0859 [facility] Stop: 03/03/22 08:58 Last Admin: 02/03/22 08:20 Dose: 1 each Naloxone HCl (Naloxone Hcl 0.4 Mg/1 Ml Vial/Carp) 0.1 mg IV UD PRN PRN Reason: Opiate Overdose Stop: 03/02/22 21:49 Nicotine (Nicotine 14 Mg/24 Hr Patch) 14 mg TD QAM [facility] Stop: 03/02/22 21:49 Last Admin: 02/03/22 08:18 Dose: 14 mg Oxycodone HCl (Oxycodone Hcl Ir 5 Mg Tab (Immediate Release)) 5 mg PO Q4H PRN PRN Reason: MODERATE Pain (4,5,6) & Pre PT Stop: 02/14/22 21:49 Last Admin: 02/01/22 18:59 Dose: 5 mg Pantoprazole Sodium (Pantoprazole 40 Mg Tab) 40 mg PO DAILYBB [facility] Stop: 03/03/22 06:29 Last Admin: 02/03/22 05:45 Dose: 40 mg Polyethylene Glycol (Polyethylene (Miralax) 17 Gm Pack) 17 gm PO DAILY [facility] Stop: 03/04/22 11:59 Last Admin: 02/03/22 08:19 Dose: 17 gm
[2022-02-03] MEDS ORDERED: diazePAM 5 MG TABLET PO SCH ×2 (14:00→21:00)
[2022-02-03] MEDS ORDERED: MAGNESIUM OXIDE 400 MG TAB PO ONE (16:15)
--- NOTE | 2022-02-03 16:54 | Discharge Summary ---
Discharge Summary Date of Service ADMIT: 02/01/2022 DISCHARGE: 02/03/2022 Notes For Next Care Provider Outpatient pain management injection recommended once UTI has cleared. Medication Changes From Visit Oxycodone 5mg PO q4hrs PRN severe pain Bactrim DS 1 tab PO BID x 5 days Methocarbamol 750mg PO TID PRN muscle spasms Tylenol 1000mg PO TID Gabapentin 800mg PO TID Admission HPI Per Admitting Provider Patient is 61 y/o M with PMH GERD, low back pain presented to ER with c/o worsening low back pain. Patient states for past 3 weeks with sharp pain to left buttock that radiates down left leg to ankle. Pain worse with movement of LLE or rotation of back. Saw PCP office 01/15/22 and was given dose of Toradol and started on methocarbamol TID. Reports taking with some relief. Has also been using Tylenol. 3 days ago took trip in car to [place], [place] and since the pain to left buttock and LLE has worsened. Pain 9/10 on pain scale. Denies other known injury or trauma. He states in 1998 was told had herniated disc to back. Reports chronic urinary frequency and in past was on medication for BPH, however has not been on for many years. Denies dysuria, hematuria, urgency or retention, flank pain, abdominal pain, fever/chills, N/V/D/C, diaphoresis, MCKAY, dizziness, syncope, vision changes, neck pain, CP, SOB, orthopnea, palpitations, cough, sore throat, choking, otalgia, rhinorrhea, paresthesias, extremity weakness, extremity edema, rashes. Admission Exam Per Admitting Provider Physical Exam: General: Mild distress secondary to back pain, WDWN Head: normocephalic, atraumatic Eyes: conjunctiva non-injected, anicteric ENT: normal inspection external ears, nose, mucous membranes moist Neck: supple, trachea midline Lungs: clear, no respiratory distress, no wheezing/rhonchi/rales CV: RRR, no murmur, no pretibial edema Abd: normal BS, soft, non-tender Back: no discoloration or rashes, +tenderness to palpation low lumbar spinous processes. +tenderness to palpation over left buttock. No CVA tenderness to percussion. +left leg raise to approx 25 degrees. distal pulses palpable, sensation to light touch intact Ext: no cyanosis, no calf tenderness Neuro: A&O x 3, no focal deficits noted, normal affect Skin: warm, dry Principal Dx & Hospital Course #1 = Principal Diagnosis (1) Intractable back pain: (2) Acute left lumbar radiculopathy: (3) Intervertebral disc protrusion: (4) UTI (urinary tract infection): (5) Tobacco use: Plan 61 yo M with acute on chronic lower back pain. He was experiencing sharp severe pain from the left buttock radiating down the left leg that was preventing him from walking or moving without significant pain. An MRI lumbar spine revealed multilevel lumbar spondylolysis most pronounced at the L3-4 level demonstrating severe central canal narrowing secondary to foal disc protrusion and facet hypertrophy. There was also a small left paracentral focal disc protrusion at L5-S1 which abutted and slightly displaced the transiting left S1 nerve root. There was no fracture or subluxation present. Aggressive pain control was given for treatment. Pain management evaluated him and was considering a lumbar epidural steroid injection but postponed secondary to UTI. Medrol dose Stefano was given with gabapentin three times daily and oxycodone for breakthrough pain. Ceftriaxone was given for the UTI. Smoking cessation was strongly encouraged. Per ortho spine, his MRI findings explained his symptoms. Prior to any surgical intervention, it would be worth trying a course of interventional pain management. He was evaluated by physical therapy, and it was recommended he return home. At time of discharge, he was ambulating at baseline, in fact he reported ambulating out into the parking lot with his family who was visiting and has no issues with this. He was sent home in stable condition with close primary care follow-up recommended. Discharge Exam He was in no acute distress with ambulating around the room or moving around the bed, improved since admission. There were no gross neurologic deficits present and left lower back and gluteal palpation elicited little if any tenderness, improved since admission. Updated Medication List Medication Instructions Recorded Confirmed Type meloxicam 15 mg tablet 15 mg PO DAILY 12/15/18 01/31/22 History omeprazole 20 mg capsule,delayed 20 mg PO DAILYBB 08/27/20 01/31/22 History release acetaminophen 500 mg tablet 1,000 mg PO TID #50 tabs 02/03/22 Rx (Tylenol Extra Strength) gabapentin 800 mg tablet 800 mg PO TID #30 tabs 02/03/22 Rx methocarbamol 750 mg tablet 750 mg PO TID PRN muscle spasms 02/03/22 Rx #30 tabs oxycodone 5 mg tablet 5 mg PO Q4H PRN severe pain #10 02/03/22 Rx tabs sulfamethoxazole 800 1 tab PO BID #10 tabs 02/03/22 Rx mg-trimethoprim 160 mg tablet (Bactrim DS) Hospital Stay Data Consultations 01/31/22 18:21 ED Decision to Admit Stat 02/01/22 08:00 Consult Orthopedic Surgery Routine 02/02/22 12:18 Consult Pain Management Routine Diagnostic Imagining Performed 01/31/22 12:09 MR lumbar spine wo con Stat 02/01/22 15:47 MRI Cervical [MR cervical spine wo con] Routine Pending Results Patient Have Any Pending Studies at Discharge: No Discharge Instructions Given to Patient (Per Discharging Provider) Please take all medications as instructed on discharge as below. You are being given a short course of antibiotics to complete 7 days for treatment of your UTI. For any residual back pain, please consider taking 1000 mg of Tylenol every 8 hours, continue meloxicam 15 mg daily, you may opt to add methocarbamol as needed for muscle spasms up to 3 times daily or for severe breakthrough pain you may use oxycodone 5 mg as prescribed. Please note taking methocarbamol and oxycodone together as not advised. Drinking alcohol on any of these medications is also not advised. Please do not exceed 3000 mg of Tylenol in any 24-hour period as this may be toxic and cause liver failure. While in the hospital you were seen by [facility] pain management, GEOVANNY Allred. Your gabapentin was increased to 800 mg 3 times daily. An outpatient consul tation for injection may be considered once the urinary tract infection is cleared. You received some steroid while in the hospital, however, it is not recommended to continue on this while you have an active infection. This will not be continued at discharge. You are seen by orthopedic spine while in the hospital, Dr. Chaim Tomas with [facility]. The recommendation was that prior to any surgical intervention it would be worth trying a course of interventional pain management as noted above. It is recommended that you follow-up with your primary care doctor within 1 week of discharge to reassess your back pain and mobility and continue your treatment plan. For leg cramps, please try over the counter magnesium supplementation. It was a pleasure taking care of you! Please call if you have any questions or problems. You can reach a [facility] hospitalist on duty at [facility] 24 hours a day by calling [phone]. Take care of yourself. Shanell Lama, DO [facility] Total Time Total Time Spent Total Time Spent (In Minutes): 60
[2022-02-03] MEDS: cefTRIAXone SODIUM 1,000 MG in DEXTROSE 5% AD-VAN 50 ML IV SCH (17:46)
[2022-02-03] MEDS ORDERED: methylPREDNISolone 4 MG TAB PO SCH (21:00)
[2022-02-03] MEDS ORDERED: SULFAMETHOXAZOLE/TRIMETHOPRIM DS 800/160MG TAB PO SCH (21:00)
[2022-02-04] MEDS ORDERED: methylPREDNISolone 4 MG TAB PO SCH (07:00)
[2022-02-05] MEDS ORDERED: methylPREDNISolone 4 MG TAB PO SCH (07:00)
[2022-02-06] MEDS ORDERED: methylPREDNISolone 4 MG TAB PO SCH (07:00)
[2022-02-07] MEDS ORDERED: methylPREDNISolone 4 MG TAB PO SCH (07:00)
== END 2022-02-03 19:06 | disposition home or self-care (01) | DRG 552 ==
LOC: 3N 11:35 → ED 11:35 → SUATTDRO 18:54 → 3N 21:12 → SUATTDRO 02-01 15:01 → UNDODISIN 02-03 18:00
DX: N39.0 Urinary tract infection, site not specified; M51.16 Intervertebral disc disorders with radiculopathy, lumbar region; M48.02 Spinal stenosis, cervical region; K21.9 Gastro-esophageal reflux disease without esophagitis; F17.210 Nicotine dependence, cigarettes, uncomplicated; Z98.1 Arthrodesis status; M47.26 Other spondylosis with radiculopathy, lumbar region; M48.061 Spinal stenosis, lumbar region without neurogenic claudication

== ENCOUNTER 2023-03-11 01:42 | Inpatient (IN) ==
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
[2023-03-11] MEDS ORDERED: KETOROLAC 30 MG/ML VIAL IV ONE (02:40)
[2023-03-11] MEDS ORDERED: HYDROmorphone INJ 1 MG/ML SYRINGE IV STA (02:40)
[2023-03-11] MEDS ORDERED: ONDANSETRON INJ 2 MG/ML 2 ML VIAL IV STA (02:40)
[2023-03-11 03:13] LABS: Basophils # (auto) 0.04 K/uL (0.00-0.20); Basophils % (auto) 0.4 %; Eosinophils # (auto) 0.18 K/uL (0.00-0.50); Eosinophils % (auto) 1.7 %; Hematocrit (blood only) 45.8 % (42.0-52.0); Hemoglobin 15.2 g/dl (14.0-18.0); Immature Granulocytes # (auto) 0.04 K/uL (0.01-0.20); Immature Granulocytes % (auto) 0.4 %; Lymphocytes # (auto) 1.83 K/uL (1.20-3.40); Mean Corpuscular Hemoglobin 30.1 pg (25.0-34.0); Mean Corpuscular Hgb Conc 33.2 g/dL (32.0-36.0); Mean Corpuscular Volume 90.7 fL (80.0-100.0); Mean Platelet Volume 9.1 fL (9.4-12.4); Monocytes # (auto) 0.65 K/uL (0.11-0.59); Neutrophils # (auto) 8.04 K/uL (1.40-6.50); Neutrophils % (auto) 74.5 %; Platelet Count 258 K/uL (130-400); RDW Coefficient of Variation 12.7 % (11.5-14.5); RDW Standard Deviation 42.3 fL (36.4-46.3); Red Blood Count 5.05 M/uL (4.70-6.10); White Blood Count 10.78 K/ul (4.8-10.8)
[2023-03-11 03:29] LABS: Albumin Globulin Ratio 1.6 (0.9-2); Albumin Level 4.2 gm/dl (3.4-5.0); BUN Creatinine Ratio 15.9 (10-20); Bilirubin,Total 0.3 mg/dl (0.2-1.0); Calcium 9.5 mg/dl (8.6-10.3); Est GFR (African American) 111.4 ml/min; Est GFR (Non-African American) 96.1 ml/min; Globulin 2.6 gm/dl (2.5-4.0); Potassium 4.1 mmol/L (3.5-5.1); Total Protein 6.8 gm/dl (6.0-8.3)
--- NOTE | 2023-03-11 05:06 | Emergency Department Note ---
Impression & Plan Intractable low back pain Admit to the [facility] ED Provider Note NAME: HERMES BECKFORD AGE: 62 SEX: Male INFORMANT: Patient ED PROVIDER(S): Ellen Pizarro DO CHIEF COMPLAINT: Low back pain PLAN: Disposition: Admit to the [facility] MEDICAL DECISION MAKING: This is a 62-year-old male patient with intractable low back pain. Patient was diagnosed with central disc protrusion at L1 and L2 by MRI. He is scheduled to see Dr. Tomas in mid March but is having intractable low back pain despite taking steroids, pain medication and muscle relaxants. Patient describes the pain is more severe than ever tonight. MRI from last week of the lumbar spine shows central disc protrusion at L1-L2. Laboratory studies from [facility] show no leukocytosis or anemia. Renal function was normal. Electrolytes were normal. Glucose was normal. I discussed the case with the [facility] and they will evaluate for further inpatient care for the intractable low back pain. Care/management discussed with: accounts manager and the [facility] Triage Nursing notes: Reviewed and agree with them. Vital Signs: reviewed and remarkable for hypertension Additional History obtained from: The patient's is at the bedside Chronic Medical/Social Conditions affecting care: Patient is also currently having significant diarrhea secondary to antibiotics which she is taking for urinary tract infection Prior/ Outside/ External records reviewed: I reviewed the MRI that was performed last week of the lumbar spine Differential Diagnosis: Intractable low back pain, worsening disc protrusion or herniation, cauda equina syndrome HPI: 62 year old Male arrives for evaluation of low back pain. Patient was diagnosed with central disc protrusion at L1 and L2 last week. He was placed on prednisone, meloxicam, muscle relaxants. The patient is pain seemed better for short period of time but has worsened now and is more severe than ever. He remains neurologically intact but the pain has become unbearable. PAST MEDICAL HISTORY: See Below, PAST SURGICAL HISTORY: See Below, SOCIAL HISTORY: See Below, HOME MEDICATIONS: See list ALLERGIES: See list VITALS: See Below PHYSICAL EXAMINATION: HEENT: Head - normocephalic and atraumatic. Pupils are equal, round, and reactive to light. Extraocular eye muscles are intact and sclera are anicteric. Ears - bilaterally patent canals with noninjected tympanic membranes and no evidence of hemotympanum. Nose - moist nasal mucosa without discharge. Mouth - moist buccal mucosa. Oropharynx is nonerythematous and there is no tonsillar exudate or edema noted. Neck: Supple; no cervical lymphadenopathy Heart: Regular rate and rhythm. There is a normal S1 and S2 with no murmurs, clicks, or gallops appreciated. Lungs: Clear to auscultation bilaterally with no wheezes, rales, or rhonchi. Abdomen: Soft, completely nontender, nondistended, with good bowel sounds. There are no palpable pulsatile masses or hepatosplenomegaly. There is no guarding, rigidity, or rebound noted. Extremities: No evidence of cyanosis, clubbing, or edema. There are easily palpable peripheral pulses. Neuro:The patient is awake and alert, oriented to day, time, and place. Muscle strength is 5/5 in all 4 extremities. 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 There are no cerebellar signs. Patient has normal sensation in both lower extremities. ED treatment: IV Toradol, IV Dilaudid, IV Zofran ED course: The patient was evaluated in room A-11. A complete history and physical was performed. Previous electronic medical records were reviewed. The patient was given a dose of IV Toradol and IV Zofran along with a dose of IV Dilaudid for his discomfort. This did give him relief of the discomfort. I discussed the case with the [facility] Hospitalist and they will evaluate for further care. The patient got some relief from the above IV analgesia but remains moderately discomfort. Past Med/Surg History Medical History Acute left lumbar radiculopathy Tobacco use GERD (gastroesophageal reflux disease) Traumatic amputation of multiple fingers History of herniated intervertebral disc Hx of fracture of wrist Surgical History H/O wrist surgery 1992, fusion wrist Family History Mother Asthma Father Diabetes Social History Smoking Status: Current every day smoker Tobacco Type: Cigarettes Cigarettes Per Day: 1/2ppd; Second Hand Exposure: Yes; Do You Dip or Chew Tobacco: No; Hx Alcohol Use: Yes (quit 7 years ago) Alcohol type: beer Hx Substance Use: Yes Non-Prescribed Medications: Marijuana Last Used Substance: Days (ago) Last Used Substance Other:: quit a few years ago Preferred Language: New Zealander Communication Ability: Effective Burlap Man Required: No Beliefs That Will Affect Care: None marital status: Current Living Situation: Family current occupational status: unemployed Feels Safe at Home: Yes Assistive Devices: Cane Allergies Allergies Allergy/AdvReac Type Severity Reaction Status Date / Time bee venom protein (honey bee) Allergy Intermediate EXTRA Verified 01/31/22 18:34 SWELLING AT SITES Home Meds Home Medications Medication Instructions Recorded Confirmed meloxicam 15 mg tablet 15 mg PO DAILY 12/15/18 02/25/23 omeprazole 20 mg capsule,delayed 20 mg PO DAILYBB 08/27/20 02/25/23 release acetaminophen 500 mg tablet 1,000 mg PO DIRECTED PRN Other 02/22/23 02/25/23 (Tylenol Extra Strength) Previous Rx's Medication Instructions Recorded gabapentin 800 mg tablet 800 mg PO TID #30 tabs 02/03/22 methocarbamol 750 mg tablet 750 mg PO TID PRN muscle spasms 02/03/22 #30 tabs oxycodone 5 mg tablet 5 mg PO Q4H PRN pain #25 tabs 02/25/23 Results & Data (ED) Vital Signs Vital Signs - 24 hr 03/11/23 01:46 03/11/23 02:55 03/11/23 04:00 Temperature 36.8 C Temperature Source Temporal Artery Scan Pulse Rate 71 Pulse Rate [Finger] 72 72 Respiratory Rate 17 15 17 Respiratory Effort / Characteristics Non-Labored Spontaneous Non-Labored Spontaneous Respiratory Depth Normal Normal Respiratory Pattern Regular Regular Blood Pressure 169/105 H Blood Pressure Mean 126 Pulse Oximetry 95 99 92 Oxygen Delivery Method Room Air Room Air Sepsis Recent Fever Within 48 Hours No Sepsis New/Unexplained Change in Mental Status N/A Sepsis Action Taken by Nursing No Action Required Laboratory Data 03/11/23 02:46 03/11/23 02:46 Lab Results 03/11/23 Range/Units 02:46 WBC 10.78 (4.8-10.8) K/ul RBC 5.05 (4.70-6.10) M/uL Hgb 15.2 (14.0-18.0) g/dl Hct 45.8 (42.0-52.0) % MCV 90.7 (80.0-100.0) fL MCH 30.1 (25.0-34.0) pg MCHC 33.2 (32.0-36.0) g/dL RDW Std Deviation 42.3 (36.4-46.3) fL RDW Coeff of Eli 12.7 (11.5-14.5) % Plt Count 258 (130-400) K/uL MPV 9.1 L (9.4-12.4) fL Immature Gran % (Auto) 0.4 % Neut % (Auto) 74.5 % Lymph % (Auto) 17.0 % Rice % (Auto) 6.0 % Eos % (Auto) 1.7 % Baso % (Auto) 0.4 % Neut # (Auto) 8.04 H (1.40-6.50) K/uL Lymph # (Auto) 1.83 (1.20-3.40) K/uL Rice # (Auto) 0.65 H (0.11-0.59) K/uL Eos # (Auto) 0.18 (0.00-0.50) K/uL Baso # (Auto) 0.04 (0.00-0.20) K/uL Immature Gran # (Auto) 0.04 (0.01-0.20) K/uL Sodium 138 (136-145) mmol/L Potassium 4.1 (3.5-5.1) mmol/L Chloride 108 H (98-107) mmol/L Carbon Dioxide 24 (21-32) mmol/L Anion Gap 6 (3-11) BUN 13 (6-23) mg/dl Creatinine 0.82 (0.6-1.4) mg/dl Est Cr Clr Drug Dosing 102.0 ml/min Est GFR ( Amer) 111.4 ml/min Est GFR (Non-Af Amer) 96.1 ml/min BUN/Creatinine Ratio 15.9 (10-20) Glucose 97 (70-99(Fasting)) mg/dl Calcium 9.5 (8.6-10.3) mg/dl Total Bilirubin 0.3 (0.2-1.0) mg/dl AST 14 (13-39) U/L ALT 17 (7-52) U/L Alkaline Phosphatase 114 H (34-104) U/L Total Protein 6.8 (6.0-8.3) gm/dl Albumin 4.2 (3.4-5.0) gm/dl Globulin 2.6 (2.5-4.0) gm/dl Albumin/Globulin Ratio 1.6 (0.9-2) Administered Medications Discontinued Medications Hydromorphone HCl (Hydromorphone Inj 1 Mg/Ml Syringe) 1 mg IV NOW STA Stop: 03/11/23 02:41 Last Admin: 03/11/23 02:50 Dose: 1 mg Documented By: ACC Ketorolac Tromethamine (Ketorolac 30 Mg/Ml Vial) 30 mg IV NOW ONE Stop: 03/11/23 02:41 Last Admin: 03/11/23 02:50 Dose: 30 mg Documented By: ACC Ondansetron HCl (Ondansetron Inj 2 Mg/Ml 2 Ml Vial) 4 mg IV NOW STA Stop: 03/11/23 02:41 Last Admin: 03/11/23 02:50 Dose: 4 mg Documented By: ACC Discharge Plan Visit Data Chief Complaint: Back Injury/Pain Stated Complaint: SEVERE BACK PAIN ED Provider: Ellen Pizarro Discharge Problem: Intractable low back pain Forms Stand Alone Forms: [facility] Prescriptions Prescriptions: No Action meloxicam 15 mg tablet 15 mg PO DAILY methocarbamol 750 mg tablet 750 mg PO TID PRN (Reason: muscle spasms) Qty: 30 0RF gabapentin 800 mg tablet 800 mg PO TID Qty: 30 0RF omeprazole 20 mg capsule,delayed release(DR/EC) 20 mg PO DAILYBB acetaminophen [Tylenol Extra Strength] 500 mg tablet 1,000 mg PO DIRECTED PRN (Reason: Other) oxycodone 5 mg tablet 5 mg PO Q4H PRN (Reason: pain) Qty: 25 0RF Referrals Referrals: Anibal Valencia MD [Primary Care Provider] -
--- NOTE | 2023-03-11 05:56 | History & Physical Report ---
Date of Service March 11, 2023 Assessment & Plan (1) Intractable low back pain: Plan: 62-year-old male with past medical history significant for GERD, degenerative's disease, generalized osteoarthritis, presents with severe back pain. Patient was in the ER on February 22, 2023 with severe back pain. And at that time lumbar spine MRI was done. This showed large central posterior disc protrusion at L1- L2 which abuts the transiting nerve roots. Mild to moderate central canal stenosis at this level and this was new compared to the MRI scan done done on January 31, 2022. At that time we also found a UTI. Patient was discharged on prednisone and pain meds to follow-up as outpatient with orthospine and also prescribe cefuroxime for UTI. He again came in February 25 with severe back pain and after IV pain medications felt better and felt like going home. Patient states he did not take antibiotics for more than 3 to 4 days because a lot of diarrhea and abdominal discomfort from the antibiotic. But again comes back today because of having severe back pain again radiating to the left leg. It has become more severe than before. Having ambulatory dysfunction. Because of using of his right leg more than the left leg is feeling weak in both legs. Denies any fevers. No abdominal pain. Micturating okay. Denies chest pain or shortness of breath. Denies headache. No runny nose or sore throat or cough. Hemodynamically stable. Was able to ambulate to bathroom in the ER slowly. Intractable low back pain MRI done in Feb 22 2023 showed large central posterior disc protrusion at L1- L2 which abuts the transiting nerve roots. Mild to moderate central canal stenosis at this level and this was new compared to the MRI scan done done on January 31, 2022. Failed outpatient treatment Pain is getting worse IV pain meds as needed consult spine orthopedics Recent UTI did not complete the course of antibiotics because of Diarrhea Currently asymptomatic we will check urinalysis Diarrhea will check stool for C. difficile GERD Omeprazole DVT prophylaxis SCDs for now If no procedure planned will do Lovenox Disposition Medical floor Full code History of Present Illness Chief Complaint: Severe back pain Primary Care Provider: Anibal Valencia MD 62-year-old male with past medical history significant for GERD, degenerative's disease, generalized osteoarthritis, presents with severe back pain. Patient was in the ER on February 22, 2023 with severe back pain. And at that time lumbar spine MRI was done. This showed large central posterior disc protrusion at L1- L2 which abuts the transiting nerve roots. Mild to moderate central canal stenosis at this level and this was new compared to the MRI scan done done on January 31, 2022. At that time we also found a UTI. Patient was discharged on prednisone and pain meds to follow-up as outpatient with orthospine and also prescribe cefuroxime for UTI. He again came in February 25 with severe back pain and after IV pain medications felt better and felt like going home. Patient states he did not take antibiotics for more than 3 to 4 days because a lot of diarrhea and abdominal discomfort from the antibiotic. But again comes back today because of having severe back pain again radiating to the left leg. It has become more severe than before. Having ambulatory dysfunction. Because of using of his right leg more than the left leg is feeling weak in both legs. Denies any fevers. No abdominal pain. Micturating okay. Denies chest pain or shortness of breath. Denies headache. No runny nose or sore throat or cough. Hemodynamically stable. Was able to ambulate to bathroom in the ER slowly. Past medical history. As mentioned above Past surgical history. Fusion of the wrist joint. Social history. Smokes 1 pack a day for last 40 years. Currently no alcohol use. Occasional marijuana. Family history. Mother had asthma. Father had spinal cancer. Diabetes. Allergies Allergy/AdvReac Type Severity Reaction Status Date / Time bee venom protein (honey bee) Allergy Intermediate EXTRA Verified 01/31/22 18:34 SWELLING AT SITES Home Medications Medication Instructions Recorded Confirmed Type meloxicam 15 mg tablet 15 mg PO DAILY 03/11/23 03/11/23 History methocarbamol 750 mg tablet 750 mg PO TID 03/11/23 03/11/23 History omeprazole 20 mg capsule,delayed 20 mg PO DAILY 03/11/23 03/11/23 History release Past Med/Surg History Medical History Acute left lumbar radiculopathy Tobacco use GERD (gastroesophageal reflux disease) Traumatic amputation of multiple fingers History of herniated intervertebral disc Hx of fracture of wrist Surgical History H/O wrist surgery 1993, fusion wrist Family History Mother Asthma Father Diabetes Social History Smoking Status: Current every day smoker Tobacco Type: Cigarettes Cigarettes Per Day: 1/2ppd; Second Hand Exposure: Yes; Do You Dip or Chew Tobacco: No; Hx Alcohol Use: Yes (quit 7 years ago) Alcohol type: beer Hx Substance Use: Yes Non-Prescribed Medications: Marijuana Last Used Substance: Days (ago) Last Used Substance Other:: quit a few years ago Preferred Language: Persian Communication Ability: Effective 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 Head- atraumatic Eyes- PERRL. ENT- oropharynx clear Neck- supple, no JVD. Lungs- clear to auscultation no wheezing or crackles. Heart- regular rhythm; no murmur, no gallop. Abdomen- normal bowel sounds, soft, nontender, no distension. Extremities- no pretibial edema, no calf tenderness; peripheral pulses intact Neuro- alert, oriented x 3; PERRL, no facial palsy; no dysarthria; moves extremities. Musculoskeletal : Let leg straight leg test positive. No spinal tenderness. Results & Data Results & Data Vital Signs (Past 12 Hours) Vital Signs Temp Pulse Pulse Resp BP Pulse Ox O2 Del Method 03/11/23 04:00 72 17 92 Room Air 03/11/23 02:55 72 15 99 03/11/23 01:46 36.8 C 71 17 169/105 H 95 Room Air Diagnostic Findings Laboratory Results WBC 10.78 K/ul (4.8-10.8) 03/11/23 02:46 RBC 5.05 M/uL (4.70-6.10) 03/11/23 02:46 Hgb 15.2 g/dl (14.0-18.0) 03/11/23 02:46 Hct 45.8 % (42.0-52.0) 03/11/23 02:46 MCV 90.7 fL (80.0-100.0) 03/11/23 02:46 MCH 30.1 pg (25.0-34.0) 03/11/23 02:46 MCHC 33.2 g/dL (32.0-36.0) 03/11/23 02:46 RDW Std Deviation 42.3 fL (36.4-46.3) 03/11/23 02:46 RDW Coeff of Eli 12.7 % (11.5-14.5) 03/11/23 02:46 Plt Count 258 K/uL (130-400) 03/11/23 02:46 MPV 9.1 fL (9.4-12.4) L 03/11/23 02:46 Immature Gran % (Auto) 0.4 % 03/11/23 02:46 Neut % (Auto) 74.5 % 03/11/23 02:46 Lymph % (Auto) 17.0 % 03/11/23 02:46 Parmer % (Auto) 6.0 % 03/11/23 02:46 Eos % (Auto) 1.7 % 03/11/23 02:46 Baso % (Auto) 0.4 % 03/11/23 02:46 Neut # (Auto) 8.04 K/uL (1.40-6.50) H 03/11/23 02:46 Lymph # (Auto) 1.83 K/uL (1.20-3.40) 03/11/23 02:46 Parmer # (Auto) 0.65 K/uL (0.11-0.59) H 03/11/23 02:46 Eos # (Auto) 0.18 K/uL (0.00-0.50) 03/11/23 02:46 Baso # (Auto) 0.04 K/uL (0.00-0.20) 03/11/23 02:46 Immature Gran # (Auto) 0.04 K/uL (0.01-0.20) 03/11/23 02:46 Sodium 138 mmol/L (136-145) 03/11/23 02:46 Potassium 4.1 mmol/L (3.5-5.1) 03/11/23 02:46 Chloride 108 mmol/L (98-107) H 03/11/23 02:46 Carbon Dioxide 24 mmol/L (21-32) 03/11/23 02:46 Anion Gap 6 (3-11) 03/11/23 02:46 BUN 13 mg/dl (6-23) 03/11/23 02:46 Creatinine 0.82 mg/dl (0.6-1.4) 03/11/23 02:46 Est Cr Clr Drug Dosing 102.0 ml/min 03/11/23 02:46 Est GFR ( Amer) 111.4 ml/min 03/11/23 02:46 Est GFR (Non-Af Amer) 96.1 ml/min 03/11/23 02:46 BUN/Creatinine Ratio 15.9 (10-20) 03/11/23 02:46 Glucose 97 mg/dl (70-99(Fasting)) 03/11/23 02:46 Calcium 9.5 mg/dl (8.6-10.3) 03/11/23 02:46 Total Bilirubin 0.3 mg/dl (0.2-1.0) 03/11/23 02:46 AST 14 U/L (13-39) 03/11/23 02:46 ALT 17 U/L (7-52) 03/11/23 02:46 Alkaline Phosphatase 114 U/L (34-104) H 03/11/23 02:46 Total Protein 6.8 gm/dl (6.0-8.3) 03/11/23 02:46 Albumin 4.2 gm/dl (3.4-5.0) 03/11/23 02:46 Globulin 2.6 gm/dl (2.5-4.0) 03/11/23 02:46 Albumin/Globulin Ratio 1.6 (0.9-2) 03/11/23 02:46 Code Status & VTE Plan VTE Prophylaxis Plan VTE Prophylaxis will be ordered: Yes
[2023-03-11] MEDS ORDERED: ACETAMINOPHEN 325 MG TAB PO PRN (08:03)
[2023-03-11] MEDS ORDERED: ONDANSETRON INJ 2 MG/ML 2 ML VIAL IV PRN (08:03)
[2023-03-11] MEDS: HYDROmorphone INJ 0.5 MG/0.5 ML SYR IV PRN ×4 (08:14→20:48)
[2023-03-11] MEDS ORDERED: ENOXAPARIN INJ 40 MG/0.4 ML SYR SQ SCH (09:00)
[2023-03-11 09:19] LABS: Basophils # (auto) 0.05 K/uL (0.00-0.20); Basophils % (auto) 0.6 %; Eosinophils # (auto) 0.19 K/uL (0.00-0.50); Eosinophils % (auto) 2.1 %; Hemoglobin 15.2 g/dl (14.0-18.0); Immature Granulocytes # (auto) 0.02 K/uL (0.01-0.20); Immature Granulocytes % (auto) 0.2 %; Lymphocytes # (auto) 2.26 K/uL (1.20-3.40); Lymphocytes % (auto) 25.4 %; Mean Corpuscular Hemoglobin 30.8 pg (25.0-34.0); Mean Corpuscular Hgb Conc 34.5 g/dL (32.0-36.0); Mean Corpuscular Volume 89.2 fL (80.0-100.0); Mean Platelet Volume 9.1 fL (9.4-12.4); Monocytes # (auto) 0.57 K/uL (0.11-0.59); Monocytes % (auto) 6.4 %; Neutrophils # (auto) 5.81 K/uL (1.40-6.50); Neutrophils % (auto) 65.3 %; Platelet Count 241 K/uL (130-400); RDW Coefficient of Variation 12.7 % (11.5-14.5); RDW Standard Deviation 42.1 fL (36.4-46.3); Red Blood Count 4.93 M/uL (4.70-6.10)
[2023-03-11 09:32] LABS: BUN Creatinine Ratio 15.7 (10-20); Calcium 9.3 mg/dl (8.6-10.3); Creatinine Clr Calc Pharmacy 119.5 ml/min; Est GFR (African American) 118.9 ml/min; Est GFR (Non-African American) 102.6 ml/min; Potassium 4.2 mmol/L (3.5-5.1)
[2023-03-11] MEDS: oxyCODONE HCL IR 5 MG TAB (IMMEDIATE RELEASE) PO PRN ×3 (09:41→22:36)
[2023-03-11] MEDS: PANTOprazole 40 MG TAB PO SCH (10:40)
--- NOTE | 2023-03-11 10:52 | Orthopedic Consultation ---
Date of Consultation March 11, 2023 Assessment & Plan (1) Lumbar disc herniation with radiculopathy: MRI lumbar spine performed and is available for review. Demonstrates beginnings of anterior listhesis L3-L4 with severe spinal stenosis subarticular disease and foraminal disease. L4-L5 demonstrates evidence of stenosis evidence of disc protrusion favoring the left with caudal migration and encroachment of the traversing root on the left. L5-S1 is markedly collapsed with bilateral neuroforaminal narrowing but evidence of autofusion. Plan in length yesterday with the patient reviewing his MRI findings and clinical presentation. This point is failed extensive course of nonoperative care we could consider revisiting interventional pain management versus surgical invention. Surgery would require a lumbar decompression and fusion L3-L4 L4-5. This allow me to adequately decompress the canal with a medial facetectomies and address the instability at L3-L4. Risk benefits pros cons alternatives on the detail. Patient is considering his options. History of Present Illness Reason for Consultation: Back and left leg pain Attending Physician: Kevin Thomas MD History of Present Illness This is a 8-year-old male who presents with a longstanding history of intermittent back and leg pain with a marked decline in status for the past 3 weeks. He denies any specific trauma fall or event. His pain rating across the back bilateral buttocks down his left leg into his foot. He has been to the ER 3 times over the past several weeks for pain control and management. He is now been admitted secondary to pain and inability to ambulate. He denies any loss of bowel bladder control at this time. Has difficulty finding any comfortable position. Allergies Allergy/AdvReac Type Severity Reaction Status Date / Time bee venom protein (honey bee) Allergy Intermediate EXTRA Verified 01/31/22 18:34 SWELLING AT SITES Home Medications Medication Instructions Recorded Confirmed Type meloxicam 15 mg tablet 15 mg PO DAILY 03/11/23 03/11/23 History methocarbamol 750 mg tablet 750 mg PO TID 03/11/23 03/11/23 History omeprazole 20 mg capsule,delayed 20 mg PO DAILY 03/11/23 03/11/23 History release Patient History Medical History Acute left lumbar radiculopathy Tobacco use GERD (gastroesophageal reflux disease) Traumatic amputation of multiple fingers History of herniated intervertebral disc Hx of fracture of wrist Surgical History H/O wrist surgery 1993, fusion wrist Family History Mother Asthma Father Diabetes Social History Smoking Status: Current every day smoker Tobacco Type: Cigarettes Cigarettes Per Day: 3; Second Hand Exposure: Yes; Do You Dip or Chew Tobacco: No; Hx Alcohol Use: No Hx Substance Use: No Preferred Language: Russian Communication Ability: Effective 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 He has evidence of breakaway weakness to dorsiflexion extensor houses longus on the left lower extremity compared to the right. There is markedly positive tension signs in left compared to the right. Sensory is diminished. Deep tendon flexes diminished Results & Data Vital Signs (Past 12 Hours) Vital Signs Temp Pulse Pulse Resp BP BP Pulse Ox 03/11/23 09:00 36.5 C 59 L 18 180/100 H 97 03/11/23 08:00 67 20 168/111 H 97 03/11/23 06:00 72 17 94 03/11/23 04:00 72 17 92 03/11/23 02:55 72 15 99 03/11/23 01:46 36.8 C 71 17 169/105 H 95 O2 Del Method 03/11/23 09:00 Room Air 03/11/23 08:00 Room Air 03/11/23 06:00 Room Air 03/11/23 04:00 Room Air 03/11/23 02:55 03/11/23 01:46 Room Air
--- NOTE | 2023-03-11 12:03 | Hospitalist Progress Note ---
Date of Service March 11, 2023 Assessment & Plan (1) Intractable low back pain: Plan: 62-year-old male with past medical history significant for GERD, degenerative's disease, generalized osteoarthritis, presents with severe back pain. Patient was in the ER on February 22, 2023 with severe back pain. And at that time lumbar spine MRI was done. This showed large central posterior disc protrusion at L1- L2 which abuts the transiting nerve roots. Mild to moderate central canal stenosis at this level and this was new compared to the MRI scan done done on January 31, 2022. Intractable low back pain MRI done in Feb 22 2023 showed large central posterior disc protrusion at L1- L2 which abuts the transiting nerve roots. Mild to moderate central canal stenosis at this level and this was new compared to the MRI scan done done on January 31, 2022. Failed outpatient treatment Ortho spine - recommends Lumbar D/F L3-L5, pt wishes to talk this over with and further discuss with Dr. Tomas will get EKG, CXR to optimize him from pre op standpoint Recent UTI did not complete the course of antibiotics because of Diarrhea Currently asymptomatic Culture from 02/22 grew e. coli will get repeat UA today, afebrile, wbc WNL Diarrhea will check stool for C. difficile GERD Omeprazole DVT prophylaxis SCDs for now If no procedure planned will do Lovenox Disposition Medical floor Full code This not does not reflect a billable visit. Pt was admitted after 00:00 on 03/11/23. Pt was seen and examined in collaboration with Dr. Thomas, please see addendum Admission and Anticipated Discharge Date Admission Date: March 11, 2023 Supervising Physician Co-Signing Physician Notes Pt seen and examined by me, care coordinated w/ Froy Yancey PA-C, pls see her note for further detail. Patient is currently laying in bed, in no acute distress. He is laying flat, prefers not to move much due to back pain. No fevers chills chest pain shortness of breath. No abdominal pain. He is able to move his right lower extremity while laying down without too much difficulty, however he cannot really move his left lower extremity due to pain. Heart sounds regular, lungs are clear to auscultation. Abdomen soft nontender nondistended. Orthopedics was consulted, and plan for surgery tomorrow. UA previously consistent with UTI, per review of records, patient did not finish the treatment. UA was repeated and consistent with UTI. Will start ceftriaxone, and probiotics. We are also going to test stool for possible C. difficile. MD William Subjective Patient was seen and examined in 317. Follow-up low back pain with radiculopathy to left lower extremity. Currently states pain is a 10 out of 10. Pain starts in his low back and radiates to the outside aspect of his left lower extremity down to his toes. Pain has been persistent for the past year but as of recent got worse. This is limited his daily function. He currently denies any fever, chills, sweats, lightheadedness, dizziness, chest pain, shortness of breath, nausea, vomiting or abdominal pain. He currently smokes but is trying to quit. He declines nicotine patch. He admits to being able to ambulate 1 flight of steps without getting chest pain but states he would have significant leg pain. He does get short of breath with exertion secondary to his history of smoking. He denies any prior history of CAD. Review of Systems Review of Systems: All systems reviewed & are unremarkable except as noted in HPI & below Physical Exam Physical Exam: Gen: WD/WN, NAD, A&O x3 HEENT: Normocephalic, atraumatic, conjunctivae moist, sclerae anicteric, mucous membranes moist. Lung: Clear to Auscultation bilaterally, no wheezes/rales/rhonchi Heart: Regular rate, regular rhythm, no murmurs, rubs, or gallops Abdomen: Soft, NT, ND +BS x 4 Extremities: No edema Skin: Warm, no rash, negative turgor. Results & Data Results & Data Vital Signs (Past 12 Hours) Vital Signs Temp Pulse Pulse Resp BP BP Pulse Ox 03/11/23 09:00 36.5 C 59 L 18 180/100 H 97 03/11/23 08:00 67 20 168/111 H 97 03/11/23 06:00 72 17 94 03/11/23 04:00 72 17 92 03/11/23 02:55 72 15 99 03/11/23 01:46 36.8 C 71 17 169/105 H 95 O2 Del Method 03/11/23 09:00 Room Air 03/11/23 08:00 Room Air 03/11/23 06:00 Room Air 03/11/23 04:00 Room Air 03/11/23 02:55 03/11/23 01:46 Room Air Medications Administered Current Inpatient Medications Acetaminophen (Acetaminophen 325 Mg Tab) 650 mg PO Q4H PRN PRN Reason: pain/fever Stop: 04/10/23 08:02 Hydromorphone HCl (Hydromorphone Inj 0.5 Mg/0.5 Ml Syr) 0.5 mg IV Q3H PRN PRN Reason: Severe Pain (Scale 7, 8, 9,10) Stop: 03/25/23 08:02 Last Admin: 03/11/23 11:23 Dose: 0.5 mg Influenza Virus Vaccine Quadrival (Influenza Virus Quadrivalent Vaccine (Iiv4) 0.5 Ml Syr) 0.5 ml IM .ONCE ONE Stop: 03/15/23 09:01 Ondansetron HCl (Ondansetron Inj 2 Mg/Ml 2 Ml Vial) 4 mg IV Q6H PRN PRN Reason: Nausea Stop: 04/10/23 08:02 Oxycodone HCl (Oxycodone Hcl Ir 5 Mg Tab (Immediate Release)) 5 mg PO Q4H PRN PRN Reason: Moderate Pain (Scale 4, 5, 6) Stop: 03/25/23 08:02 Last Admin: 03/11/23 09:41 Dose: 5 mg Pantoprazole Sodium (Pantoprazole 40 Mg Tab) 40 mg PO DAILY JOSE Stop: 04/10/23 08:59 Last Admin: 03/11/23 10:40 Dose: 40 mg Pneumococcal 20-Valent Conj Vacc (Pneumococcal Vaccine (Pcv20) 20-Adamaris Conj-Dip Crm/Pf 0.5 Ml Syr) 0.5 ml IM .ONCE ONE Stop: 03/15/23 09:01
[2023-03-11] MEDS: KETOROLAC TROMETHAMINE 15 MG/ML VIAL IV PRN (12:27)
--- NOTE | 2023-03-11 13:21 | XRay Report ---
SUPINE AP CHEST RADIOGRAPH CLINICAL HISTORY: Preoperative evaluation. COMPARISON STUDY: Chest radiograph January 15, 2017. FINDINGS: No pneumothorax or pleural effusion is identified on supine exam. Cardiomediastinal silhoue tte is unremarkable. No evidence for pulmonary edema. There is no consolidation to suggest pneumonia. Several old right rib fractures are incidentally noted. IMPRESSION: No acute cardiopulmonary findings. ACT 112: Negative or not required by law. Electronically signed by: Doe Dunn M.D. 03/11/2023 1:20 PM
[2023-03-11 14:12] LABS: Appearance Urine Cloudy (Clear); Bacteria Urine Automated 4+ (Negative); Bilirubin Urine Negative (Negative); Blood Urine Negative (Negative); Color Urine Yellow; Epithelial Cell Urine Auto 0-5 /lpf (0-5); Glucose Urine UA Negative (Negative); Ketones Urine Trace (Negative); Leukocyte Esterase Urine Negative (Negative); Nitrite Urine Positive (Negative); Protein Urine Negative (Negative); RBC Urine Automated 0-4 /hpf (0-4); Specific Gravity Urine 1.019 (1.000-1.030); Urobilinogen Urine Negative (Negative); pH Urine 5.5 (4.5-7.5)
[2023-03-11] MEDS: cefTRIAXone SODIUM 1,000 MG in DEXTROSE 5 % MINI-B 50 ML IV SCH (16:03)
[2023-03-11] MEDS: SODIUM CHLORIDE 0.9% 1,000 ML IV SCH (16:03)
[2023-03-11] MEDS: ADVANCED PROBIOTIC 1250 MG CAPSULE PO SCH (16:08)
--- NOTE | 2023-03-11 16:46 | Electrocardiogram Report ---
Test Reason : Blood Pressure : / mmHG Vent. Rate : 066 BPM Atrial Rate : 066 BPM P-R Int : 136 ms QRS Dur : 110 ms QT Int : 390 ms P-R-T Axes : 056 050 057 degrees QTc Int : 408 ms Normal sinus rhythm Normal ECG When compared with ECG of 15-JAN-2017 15:06, No significant change was found Confirmed by Darius Browne ([id number]) on 03/11/2023 4:46:00 PM Referred By: REFERRED SELF Confirmed By:Leon Browne
[2023-03-11] MEDS: GABAPENTIN 800 MG TAB PO SCH (20:48)
[2023-03-11] MEDS: METHOCARBAMOL 750 MG TABLET PO SCH (20:49)
[2023-03-12] MEDS: SODIUM CHLORIDE 0.9% 1,000 ML IV SCH ×2 (00:14→08:14)
[2023-03-12] MEDS: HYDROmorphone INJ 0.5 MG/0.5 ML SYR IV PRN ×2 (01:47→04:48)
[2023-03-12] MEDS: oxyCODONE HCL IR 5 MG TAB (IMMEDIATE RELEASE) PO PRN ×2 (03:29→16:24)
[2023-03-12 06:19] LABS: Basophils # (auto) 0.05 K/uL (0.00-0.20); Basophils % (auto) 0.6 %; Eosinophils # (auto) 0.17 K/uL (0.00-0.50); Eosinophils % (auto) 1.9 %; Hematocrit (blood only) 42.9 % (42.0-52.0); Hemoglobin 14.7 g/dl (14.0-18.0); Immature Granulocytes # (auto) 0.03 K/uL (0.01-0.20); Immature Granulocytes % (auto) 0.3 %; Lymphocytes # (auto) 2.05 K/uL (1.20-3.40); Lymphocytes % (auto) 23.4 %; Mean Corpuscular Hemoglobin 30.3 pg (25.0-34.0); Mean Corpuscular Hgb Conc 34.3 g/dL (32.0-36.0); Mean Corpuscular Volume 88.5 fL (80.0-100.0); Mean Platelet Volume 9.2 fL (9.4-12.4); Monocytes # (auto) 0.66 K/uL (0.11-0.59); Monocytes % (auto) 7.5 %; Neutrophils % (auto) 66.3 %; Platelet Count 248 K/uL (130-400); RDW Coefficient of Variation 12.6 % (11.5-14.5); RDW Standard Deviation 41.2 fL (36.4-46.3); Red Blood Count 4.85 M/uL (4.70-6.10); White Blood Count 8.76 K/ul (4.8-10.8)
[2023-03-12 06:39] LABS: Albumin Globulin Ratio 1.6 (0.9-2); Albumin Level 3.8 gm/dl (3.4-5.0); BUN Creatinine Ratio 16.5 (10-20); Bilirubin,Total 0.7 mg/dl (0.2-1.0); Calcium 8.8 mg/dl (8.6-10.3); Creatinine Clr Calc Pharmacy 98.4 ml/min; Est GFR (African American) 109.8 ml/min; Est GFR (Non-African American) 94.7 ml/min; Globulin 2.4 gm/dl (2.5-4.0); Magnesium 1.9 mg/dl (1.7-2.4); Phosphorus 2.9 mg/dl (2.5-4.9); Potassium 4.2 mmol/L (3.5-5.1); Total Protein 6.2 gm/dl (6.0-8.3)
[2023-03-12] MEDS: KETOROLAC TROMETHAMINE 15 MG/ML VIAL IV PRN (06:53)
[2023-03-12] MEDS ORDERED: MELOXICAM 7.5 MG TAB PO SCH (09:00)
[2023-03-12] MEDS ORDERED: MIDAZOLAM HCL 1 MG/ML 2ML VIAL ONE (09:04)
[2023-03-12] MEDS ORDERED: HYDROmorphone INJ 2 MG/ML SYR/VIAL ONE (09:04)
[2023-03-12] MEDS ORDERED: DEXAMETHASONE SOD INJ 4 MG/ML VIAL ONE (09:05)
[2023-03-12] MEDS ORDERED: LIDOCAINE 2% 2 ML VIAL/AMP(20MG/ML) INFIL ONE (09:05)
[2023-03-12] MEDS ORDERED: ONDANSETRON INJ 2 MG/ML 2 ML VIAL ONE (09:05)
[2023-03-12] MEDS ORDERED: SODIUM CHLORIDE 0.9% PF INJ 10 ML VIAL ONE (09:05)
[2023-03-12] MEDS ORDERED: SUGAMMADEX SODIUM 200 MG/2 ML VIAL IV ONE (09:05)
[2023-03-12] MEDS ORDERED: PROPOFOL IV EMULSION 10 MG/ML 20 ML VIAL IV ONE (09:05)
[2023-03-12] MEDS ORDERED: ROCURONIUM BROMIDE 10 MG/ML 5 ML VIAL IV ONE ×2 (09:05→10:52)
[2023-03-12] MEDS ORDERED: GLYCOPYRROLATE 0.2 MG/ML VIAL ONE (09:05)
[2023-03-12] MEDS ORDERED: PROMETHAZINE HCL 6.25 MG in SODIUM CHLORIDE 0.9% 50 ML IV PRN (09:10)
[2023-03-12] MEDS ORDERED: fentaNYL citrate PF 100 MCG/2 ML VIAL IV PRN (09:10)
[2023-03-12] MEDS ORDERED: ONDANSETRON INJ 2 MG/ML 2 ML VIAL IV PRN ×2 (09:10→13:38)
[2023-03-12] MEDS ORDERED: ATROPINE SULFATE 0.1 MG/ML 10ML SYR IV PRN (09:10)
[2023-03-12] MEDS ORDERED: ePHEDrine sulfate 50 MG/ML AMP IV PRN (09:10)
--- NOTE | 2023-03-12 09:12 | Anesthesiology Consultation ---
Date of Service March 12, 2023 Assessment & Plan (1) Encounter for pre-operative examination: Chart Review Chart Review: Acceptable Risk for Surgery and Patient NOT seen in Pre Admission Testing Consults Requested none History Surgery Operation Date: 03/12/23 09:35 Proposed Procedures p Lumbar Decompression and Fusion L3-L4, L4-L5 - Pablito Tomas DO Height/Weight Height: 5 ft 11 in Weight: 76 kg Allergies Allergy/AdvReac Type Severity Reaction Status Date / Time bee venom protein (honey bee) Allergy Intermediate EXTRA Verified 01/31/22 18:34 SWELLING AT SITES Medications Home Medications Medication Instructions Recorded Confirmed Last Taken gabapentin 800 mg tablet 800 mg PO TID 03/11/23 03/11/23 Unknown meloxicam 15 mg tablet 15 mg PO DAILY 03/11/23 03/11/23 Unknown methocarbamol 750 mg tablet 750 mg PO TID 03/11/23 03/11/23 Unknown omeprazole 20 mg capsule,delayed 20 mg PO DAILY 03/11/23 03/11/23 Unknown release Active Medications Generic Name Dose Route Start Last Admin Trade Name Freq PRN Reason Stop Dose Admin Acetaminophen 650 mg 03/11/23 08:03 03/12/23 00:46 Acetaminophen 325 Mg Tab PO 04/10/23 08:02 650 mg Q4H PRN Administration pain/fever Gabapentin 800 mg 03/11/23 21:00 03/11/23 20:48 Gabapentin 800 Mg Tab PO 04/10/23 20:59 800 mg TID JOSE Administration Hydromorphone HCl 0.5 mg 03/11/23 08:03 03/12/23 04:48 Hydromorphone Inj 0.5 Mg/0.5 Ml Syr IV 03/25/23 08:02 0.5 mg Q3H PRN Administration Severe Pain (Scale 7, 8, 9,10) Ceftriaxone Sodium 1,000 mg/ 50 mls @ 100 mls/hr 03/11/23 14:30 03/11/23 17:04 Dextrose IV 03/21/23 14:29 Infused Q24H JOSE Infusion Protocol Sodium Chloride 1,000 mls @ 125 mls/hr 03/11/23 14:30 03/12/23 08:14 Nss IV 04/10/23 14:29 125 mls/hr .Q8H JOSE Administration Ketorolac Tromethamine 15 mg 03/11/23 12:05 03/12/23 06:53 Ketorolac Tromethamine 15 Mg/Ml Vial IV 03/16/23 12:04 15 mg Q6H PRN Administration Mild Pain (Scale 1, 2, 3) Lactobacillus Acidophilus 2 cap 03/11/23 14:30 03/11/23 16:08 Advanced Probiotic 1250 Mg Capsule PO 04/10/23 14:29 2 cap DAILY JOSE Administration Methocarbamol 750 mg 03/11/23 21:00 03/11/23 20:49 Methocarbamol 750 Mg Tablet PO 04/10/23 20:59 750 mg TID JOSE Administration Ondansetron HCl 4 mg 03/11/23 08:03 03/12/23 01:51 Ondansetron Inj 2 Mg/Ml 2 Ml Vial IV 04/10/23 08:02 4 mg Q6H PRN Administration Nausea Oxycodone HCl 5 mg 03/11/23 08:03 03/12/23 03:29 Oxycodone Hcl Ir 5 Mg Tab (Immediate Release) PO 03/25/23 08:02 5 mg Q4H PRN Administration Moderate Pain (Scale 4, 5, 6) Pantoprazole Sodium 40 mg 03/11/23 09:00 03/11/23 10:40 Pantoprazole 40 Mg Tab PO 04/10/23 08:59 40 mg DAILY JOSE Administration NPO Date Last Intake of Fluids: 03/11/23 Time Last Intake of Fluids: 21:00 Date Last Intake of Solids: 03/11/23 Time Last Intake of Solids: 18:30 Past Medical History Medical History (Updated 03/12/23 @ 09:12 by Neil Chand MD) Encounter for pre-operative examination Acute left lumbar radiculopathy Tobacco use GERD (gastroesophageal reflux disease) Traumatic amputation of multiple fingers History of herniated intervertebral disc Hx of fracture of wrist Past Family History Family History Mother Asthma Father Diabetes Past Surgical History Surgical History H/O wrist surgery 1993, fusion wrist Social History Smoking Status: Current every day smoker tobacco type: cigarettes Smoking cigarettes per day: 3 Do You Dip or Chew Tobacco: No Hx Alcohol Use: No Alcohol type: beer Hx Substance Use: No substance use type: former substance user, marijuana and crack/cocaine Last Used Substance: Days (ago) Last Used Substance Other:: quit a few years ago Physical Exam Vital Signs Last Vital Signs Temp 36.9 C 03/12/23 08:36 Pulse 64 03/12/23 08:36 Resp 20 03/12/23 08:36 BP 146/92 H 03/12/23 08:36 Pulse Ox 96 03/12/23 08:36 O2 Del Method Room Air 03/12/23 08:36 Testing Laboratory Results 03/12/23 05:51 03/12/23 05:51 Urine Color Yellow 03/11/23 Unknown Urine Appearance Cloudy (Clear) A 03/11/23 Unknown Urine pH 5.5 (4.5-7.5) 03/11/23 Unknown Ur Specific Evans 1.019 (1.000-1.030) 03/11/23 Unknown Urine Protein Negative (Negative) 03/11/23 Unknown Urine Glucose (UA) Negative (Negative) 03/11/23 Unknown Urine Ketones Trace (Negative) H 03/11/23 Unknown Urine Nitrite Positive (Negative) A 03/11/23 Unknown Ur Leukocyte Esterase Negative (Negative) 03/11/23 Unknown Urine WBC (Auto) 5-10 /hpf (0-5) H 03/11/23 Unknown Urine RBC (Auto) 0-4 /hpf (0-4) 03/11/23 Unknown U Hyaline Cast (Auto) 1-5 /lpf (0-5) 03/11/23 Unknown U Epithel Cells (Auto) 0-5 /lpf (0-5) 03/11/23 Unknown Urine Bacteria (Auto) 4+ (Negative) H 03/11/23 Unknown 03/11/23 Unknown Urine Culture - Preliminary Urine,Clean Catch Gram negative bacilli Electrocardiogram Date: 03/12/23 DICTATED BY: Darius Browne MD Test Reason : Blood Pressure : / mmHG Vent. Rate : 066 BPM Atrial Rate : 066 BPM P-R Int : 136 ms QRS Dur : 110 ms QT Int : 390 ms P-R-T Axes : 056 050 057 degrees QTc Int : 408 ms Normal sinus rhythm Normal ECG When compared with ECG of 15-JAN-2017 15:06, No significant change was found
--- NOTE | 2023-03-12 09:46 | History & Physical Bridge Note ---
Date of Service March 12, 2023 History & Physical Bridge Note I have examined the patient, reviewed the History & Physical and in the interval since the performance of the History & Physical I have noted the following changes of clinical significance: Patient presents with progressive neurologic decline severe pain requiring IV narcotic medication and obvious neural encroachment on imaging. Any further delay in his treatment but compromise potential neurologic recovery and return to full function. Subsequently recommending emergent surgery decompression and fusion L3-L5
[2023-03-12] MEDS ORDERED: BUPIVACAINE/EPINEPHRINE 0.5% MPF 1:200,000 30 ML VIAL ONE (10:00)
[2023-03-12] MEDS ORDERED: ceFAZolin 330 MG/ML 1 GM VIAL ONE (10:00)
[2023-03-12] MEDS ORDERED: ePHEDrine sulfate 50 MG/5 ML SYR ONE (10:50)
[2023-03-12] MEDS ORDERED: PHENYLEPHRINE HCL 10 MG/ML VIAL ONE (10:50)
[2023-03-12] MEDS ORDERED: FLOSEAL HEMOSTATIC MATRIX 10ML TOP ONE (11:07)
--- NOTE | 2023-03-12 12:17 | Operative Report ---
Post Operative Report Pre & Post Diagnosis Operation Date: 03/12/23 09:35 Pre-Op Diagnosis: Lumbar disc herniation with radiculopathy Lumbar spinal stenosis and neurogenic claudication Spondylolisthesis L3-L4 Post-Op Diagnosis: Same I identified the patient and participated in the time-out.: Yes Procedure Operation Date: 03/12/23 09:35 Actual Procedures #1 lumbar decompression bilaterally facetectomies and foraminotomies L3-L4 L4-5. #2 posterior spinal fusion L3-L5. #3 placed posterior instrumentation L3-L5 per #4 number to fusion L3-L4 L4-5. #5 distress prior 12 x 26 mm at L3-L4 and 13 x 26 mm at L4-5. #6 placement of locally harvested morselized autograft posterior gutters. #7 placement infuse collagen sponge combined with Koros bone graft in the posterior gutters and Morpheus bone graft interbody space. Surgeon Pablito Tomas DO Schedule Checker Bernie Aguilar Estimated Blood Loss 250 Findings Consistent with Post-Op Diagnosis Specimens None Indications This is a 62-year-old male who presents with marked client status over the past several weeks with gross neurologic deficit affecting left lower extremity is here for emergent surgical procedure. Description of Procedure Patient met with identified informed consent obtained. Patient was then taken to the operative suite underwent patient placed in a prone position on the Delon table top of the Lucio frame. All bony prominences well-padded eyes inspected to ensure no external pressure placed upon the. This point the lumbar spine was prepped and draped no sterile fashion. Sharp dissection with assistance of Bovie cautery form down to and exposing the lamina and transverse processes of L3-L4-L5 bilaterally. For calcified fashion complete laminectomy L4 and L3 was performed including bilateral male facetectomies and foraminotomies addressing severe spinal stenosis as well as evidence of a disc herniation at L4 L5 on the left and caudal migration. After complete decompression pedicle screws were placed in L3 L4-5 bilaterally with assistance of fluoroscopy and appropriate size chantel placed. By way of transforaminal approach on the left we discectomy of L4-5 was performed endplates guarded to subcortical bleeding bone and 13 x 26 mm Spira cage with Morpheus bone grafttapped in position. Then proceeded to L3-L4 and again by way of a transfemoral approach and left complete discectomy performed endplates guarded to subcortical mean bone and a 13 x 26 mm Spira cage filled with Morpheus bone graft tapped in position.to the rods were then compressed locked in final position bilaterally. The transverse processes of L3 L4-5 burred to subcortical bleeding bone. Infuse collagen sponge combined with Koros bone graft and local autograft placed in the posterior gutters. 15 round GISSELLE drain inserted. The incision was then closed with 1 Vicryl fascia 2-0 Vicryl subcutaneously and 4 Monocryl for final closure. Steri-Strips sterile dressing placed. Patient waken taken to PACU in stable condition. Please note spinal cord body visualized at the procedure no changes noted. Lastly Bernie Aguilar was present that the entire surgeon while the patient positioning complex portion of the surgery and final skin closure. I attest to the content of the Intraoperative Record and any orders documented therein. Any exceptions are noted below.
--- NOTE | 2023-03-12 12:25 | Fluoroscopy Report ---
FL lumbar spine 2-3V CLINICAL HISTORY: L4-L5 DECOMPRESSION FUSIONchronic low back pain COMPARISON STUDY: Lumbar spine MRI 02/22/2023 FLUOROSCOPY TIME: 20.5 seconds FLUOROSCOPY IMAGES: 2 EXPOSURE DOSE: 11.71 mGy FINDINGS: Posterior interbody rods and screw fusion hardware with discectomy is noted at what is labe led the L3-L5 levels. The hardware appears intact. Moderate multilevel intervertebral disc space narr owing and spondylotic spurring. No unexpected opaque foreign body identified. IMPRESSION: Fluoroscopic assistance as above. ACT 112: Negative or not required by law. Electronically signed by: Jeronimo Bailey M.D. 03/12/2023 12:24 PM
--- NOTE | 2023-03-12 12:40 | Anesthesiology Progress Note ---
Date of Service March 12, 2023 Anesthesia Post Procedure Vital Signs Vital Signs: Temp Pulse Resp BP BP Pulse Ox O2 Del Method 03/12/23 08:36 36.9 C 64 20 146/92 H 96 Room Air 03/12/23 07:09 36.5 C 63 18 154/86 H 99 Room Air 03/11/23 23:43 37.1 C 57 L 16 154/97 H 94 Room Air 03/11/23 20:50 Room Air 03/11/23 14:16 36.4 C L 62 18 159/99 H 96 Room Air Pain Intensity Lower Back: Pain Intensity: 7 Transfer of Care Handoff Completed per policy Notes Mental Status: alert / awake / arousable and participated in evaluation Patient Amnestic to Procedure: Yes Nausea / Vomiting: adequately controlled Pain: improving with treatment Airway Patency, RR, SpO2: stable & adequate BP & HR: stable & adequate Hydration State: stable & adequate Anesthetic Complications: no major complications apparent and Pt Satisfied with anesthetic care
[2023-03-12] MEDS: HYDROmorphone INJ 2 MG/ML SYR/VIAL IV PRN ×3 (12:50→13:15)
[2023-03-12] MEDS: GABAPENTIN 800 MG TAB PO SCH ×3 (12:53→20:40)
[2023-03-12] MEDS: METHOCARBAMOL 750 MG TABLET PO SCH (12:53)
[2023-03-12] MEDS ORDERED: PROMETHAZINE HCL 12.5 MG in SODIUM CHLORIDE 0.9% 50 ML IV PRN (13:38)
[2023-03-12] MEDS ORDERED: METOCLOPRAMIDE HCL INJ 5 MG/ML 2 ML VIAL IV PRN (13:38)
[2023-03-12] MEDS ORDERED: LORazepam 0.5 MG TAB PO PRN (13:38)
[2023-03-12] MEDS ORDERED: ACETAMINOPHEN 1,000 MG/100 ML VIAL IV PRN (13:38)
[2023-03-12] MEDS ORDERED: HYDROmorphone INJ 1 MG/ML SYRINGE IV PRN (13:38)
[2023-03-12] MEDS ORDERED: SOD PHOSPHATE/SOD BIPHOSPHATE ENEMA 132 ML BTL PR PRN (13:38)
[2023-03-12] MEDS ORDERED: ONDANSETRON 4 MG OD TAB PO PRN (13:38)
[2023-03-12] MEDS ORDERED: DO NOT ADMINISTER PNEUMOCOCCAL VACCINE PRN (13:38)
[2023-03-12] MEDS ORDERED: NALOXONE HCL 0.4 MG/1 ML VIAL/CARP IV PRN (13:38)
[2023-03-12] MEDS ORDERED: ALUMINUM/MAGNESIUM SUSP 30 ML UDC PO PRN (13:38)
[2023-03-12] MEDS ORDERED: bisacodyL 10 MG SUPP PR PRN (13:38)
[2023-03-12] MEDS ORDERED: diphenhydrAMINE Capsule 25 MG CAP PO PRN (13:38)
[2023-03-12] MEDS ORDERED: LORazepam 0.5 MG in SYRINGE 0.25 ML IV PRN (13:38)
[2023-03-12] MEDS ORDERED: MAGNESIUM HYDROXIDE SUSP 30 ML UDC PO PRN (13:38)
[2023-03-12] MEDS ORDERED: ACETAMINOPHEN 500 MG TAB PO PRN (13:38)
[2023-03-12] MEDS ORDERED: HYDROmorphone INJ 0.5 MG/0.5 ML SYR IV PRN (13:38)
[2023-03-12] MEDS ORDERED: hydrOXYzine HCl 25 MG TAB PO PRN (13:38)
[2023-03-12] MEDS ORDERED: FAMOTIDINE 20 MG TAB PO PRN (13:38)
[2023-03-12] MEDS ORDERED: DO NOT ADMINISTER FLU VACCINE PRN (13:38)
[2023-03-12] MEDS: ADVANCED PROBIOTIC 1250 MG CAPSULE PO SCH (14:11)
[2023-03-12] MEDS: PANTOprazole 40 MG TAB PO SCH (14:11)
[2023-03-12] MEDS: LACTATED RINGER'S 1,000 ML IV SCH (14:13)
[2023-03-12] MEDS: cefTRIAXone SODIUM 1,000 MG in DEXTROSE 5 % MINI-B 50 ML IV SCH (14:42)
--- NOTE | 2023-03-12 15:30 | Hospitalist Progress Note ---
Date of Service March 12, 2023 Assessment & Plan (1) Intractable low back pain: Plan: 62-year-old male with past medical history significant for GERD, degenerative's disease, generalized osteoarthritis, presents with severe back pain. Patient was in the ER on February 22, 2023 with severe back pain. And at that time lumbar spine MRI was done. This showed large central posterior disc protrusion at L1- L2 which abuts the transiting nerve roots. Mild to moderate central canal stenosis at this level and this was new compared to the MRI scan done done on January 31, 2022. Intractable low back pain MRI done in Feb 22 2023 showed large central posterior disc protrusion at L1- L2 which abuts the transiting nerve roots. Mild to moderate central canal stenosis at this level and this was new compared to the MRI scan done done on January 31, 2022. Failed outpatient treatment Ortho spine - recommends Lumbar D/F L3-L5, pt wishes to talk this over with and further discuss with Dr. Tomas He is s/p Lumbar decompression and fusion L3-L5, POD # [address] Tomas EBL 250ml UTI UA appears + did not complete the course of recent antibiotics because of Diarrhea, stool now formed Currently asymptomatic Culture from 02/22 grew e. coli Urine culture growing gram negative bacilli empirically on ceftriaxone, Day #2 Diarrhea resolved, stool formed GERD Omeprazole DVT prophylaxis SCDs for now Disposition Medical floor Full code Thank you for this consultation. We will follow the patient with you during their hospital stay. You can reach a member of the [facility] Hospitalist Team 10/09 via hospitalist role on tiger text. Pt was seen and examined in collaboration with Dr. Thomas, please see addendum Admission and Anticipated Discharge Date Admission Date: March 11, 2023 Supervising Physician Co-Signing Physician Notes Pt seen and examined by me, care coordinated w/ Froy Yancey PA-C, pls see her note for further detail. Patient is currently laying in bed, in no acute distress. He is s/p lumbar spine surgery earlier today. He is laying flat in the bed. No fevers chills chest pain shortness of breath. No abdominal pain. He reports that his LLE already feels better but he is drowsy from anesthesia. Heart sounds regular, lungs are clear to auscultation. Abdomen soft nontender nondistended. Deng cath w/ yellow urine. UA previously consistent with UTI, per review of records, patient did not finish the treatment. UA was repeated and consistent with UTI/ GNB. Started ceftriaxone, and probiotics. Monitor for poss. diarrhea, plan to test for poss. c. diff. MD William Subjective Patient was seen and examined in 317. Follow-up low back pain with radiculopathy to left lower extremity. He is s/p Lumbar D/F. "I feel foggy." He does not like the catheter states he has never had one in his life and it feels like he has to go the bathroom. He denies f/c/s, chest pain, sob, n/v/d. He is tolerating sips of clears. Review of Systems Review of Systems: All systems reviewed & are unremarkable except as noted in HPI & below Physical Exam Physical Exam: Gen: WD/WN, NAD, A&O x3, lying supine in bed HEENT: Normocephalic, atraumatic, conjunctivae moist, sclerae anicteric, mucous membranes moist. Lung: Clear to Auscultation bilaterally, no wheezes/rales/rhonchi Heart: Regular rate, regular rhythm, no murmurs, rubs, or gallops Abdomen: Soft, NT, ND +BS x 4 Extremities: No edema lumbar dressing CDI, GISSELLE drain with serosang drainage Skin: Warm, no rash, negative turgor. : deng cath draining yellow urine Results & Data Results & Data Vital Signs (Past 12 Hours) Vital Signs Temp Pulse Pulse Resp BP Pulse Ox O2 Del Method 03/12/23 14:51 37.1 C 75 16 123/78 95 Nasal Cannula 03/12/23 14:16 36.4 C L 72 18 115/74 92 Nasal Cannula 03/12/23 14:03 Nasal Cannula 03/12/23 13:50 36.6 C 76 18 109/71 92 Nasal Cannula 03/12/23 13:35 75 12 109/71 96 Nasal Cannula 03/12/23 13:25 36.8 C 76 12 112/69 94 Nasal Cannula 03/12/23 13:15 74 14 128/75 93 Nasal Cannula 03/12/23 13:05 78 14 128/73 94 Nasal Cannula 03/12/23 12:55 78 15 146/85 H 94 Nasal Cannula 03/12/23 12:45 85 16 144/87 H 94 Oxymask 03/12/23 12:35 77 12 133/80 92 Oxymask 03/12/23 12:29 36.4 C L 76 12 118/75 92 Oxymask 03/12/23 08:36 36.9 C 64 20 146/92 H 96 Room Air 03/12/23 07:09 36.5 C 63 18 154/86 H 99 Room Air O2 Flow Rate 03/12/23 14:51 2.5 03/12/23 14:16 2.5 03/12/23 14:03 2.5 03/12/23 13:50 2.5 03/12/23 13:35 3 03/12/23 13:25 3 03/12/23 13:15 3 03/12/23 13:05 4 03/12/23 12:55 4 03/12/23 12:45 10 03/12/23 12:35 10 03/12/23 12:29 10 03/12/23 08:36 03/12/23 07:09 Laboratory Results Short CBC 03/12/23 Range/Units 05:51 WBC 8.76 (4.8-10.8) K/ul Hgb 14.7 (14.0-18.0) g/dl Hct 42.9 (42.0-52.0) % Plt Count 248 (130-400) K/uL BMP 03/12/23 05:51 Sodium 136 Potassium 4.2 Chloride 107 Carbon Dioxide 24 BUN 14 Creatinine 0.85 Glucose 95 Calcium 8.8 Liver Function 03/12/23 Range/Units 05:51 Total Bilirubin 0.7 (0.2-1.0) mg/dl AST 14 (13-39) U/L ALT 16 (7-52) U/L Alkaline Phosphatase 91 (34-104) U/L Albumin 3.8 (3.4-5.0) gm/dl I have independently reviewed and interpreted patient's labs including CBC, CMP Diagnostic Findings Lumbar Spine X-Ray 03/12/23 09:35 FL lumbar spine 2-3V CLINICAL HISTORY: L4-L5 DECOMPRESSION FUSIONchronic low back pain COMPARISON STUDY: Lumbar spine MRI 02/22/2023 FLUOROSCOPY TIME: 20.5 seconds FLUOROSCOPY IMAGES: 2 EXPOSURE DOSE: 11.71 mGy FINDINGS: Posterior interbody rods and screw fusion hardware with discectomy is noted at what is labeled the L3-L5 levels. The hardware appears intact. Moderate multilevel intervertebral disc space narrowing and spondylotic spurring. No unexpected opaque foreign body identified. IMPRESSION: Fluoroscopic assistance as above. ACT 112: Negative or not required by law. Electronically signed by: Jeronimo Bailey M.D. 03/12/2023 12:24 PM Medications Administered Current Inpatient Medications Acetaminophen (Acetaminophen 500 Mg Tab) 1,000 mg PO Q8H PRN PRN Reason: MILD Pain Scale 1,2,3 & Pre PT Stop: 04/11/23 13:37 Al Hydrox/Mg Hydrox/Simethicone (Aluminum/Magnesium Susp 30 Ml Udc) 30 ml PO Q6H PRN PRN Reason: Dyspepsia Stop: 04/11/23 13:37 Atropine Sulfate (Atropine Sulfate 0.1 Mg/Ml 10ml Syr) 0.5 mg IV Q1M PRN PRN Reason: PACU Use-HR<40 &/or Bradycardi Stop: 03/12/23 17:10 Bisacodyl (Bisacodyl 10 Mg Supp) 10 mg UT DAILY PRN PRN Reason: Constipation Stop: 04/11/23 13:37 Diphenhydramine HCl (Diphenhydramine Capsule 25 Mg Cap) 25 mg PO Q6H PRN PRN Reason: Allergic Rhinitis/Insomnia Stop: 04/11/23 13:37 Ephedrine Sulfate (Ephedrine Sulfate 50 Mg/Ml Amp) 5 mg IV Q5M PRN PRN Reason: PACU Use Only-SBP<90 mmHg Stop: 03/12/23 17:10 Famotidine (Famotidine 20 Mg Tab) 20 mg PO Q12H PRN PRN Reason: Dyspepsia Stop: 04/11/23 13:37 Fentanyl Citrate (Fentanyl Citrate Pf 100 Mcg/2 Ml Vial) 25 mcg IV Q5M PRN PRN Reason: PACU Use Only-Pain Stop: 03/12/23 17:10 Gabapentin (Gabapentin 800 Mg Tab) 800 mg PO TID JOSE Stop: 04/10/23 20:59 Last Admin: 03/12/23 14:11 Dose: 800 mg Hydromorphone HCl (Hydromorphone Inj 2 Mg/Ml Syr/Vial) 0.5 mg IV Q5M PRN PRN Reason: PACU Use Only-Pain Stop: 03/12/23 17:11 Last Admin: 03/12/23 13:15 Dose: 0.5 mg Hydromorphone HCl (Hydromorphone Inj 0.5 Mg/0.5 Ml Syr) 0.5 mg IV Q3H PRN PRN Reason: MODERATE Pain (Scale 4,5,6) & Pre PT Stop: 03/26/23 13:37 Hydromorphone HCl (Hydromorphone Inj 1 Mg/Ml Syringe) 1 mg IV Q3H PRN PRN Reason: SEVERE Pain (Scale 7,8,9,10) Stop: 03/26/23 13:37 Hydroxyzine HCl (Hydroxyzine Hcl 25 Mg Tab) 25 mg PO Q8H PRN PRN Reason: Anxiety Stop: 04/11/23 13:37 Ceftriaxone Sodium 1,000 mg/ (Dextrose) 50 mls @ 100 mls/hr IV Q24H JOSE; Protocol Stop: 03/21/23 14:29 Last Infusion: 03/12/23 15:25 Dose: Infused Promethazine HCl 6.25 mg/ (Sodium Chloride) 50.25 mls @ 204 mls/hr IV ONCE PRN PRN Reason: PACU Use Only-Nausea/Vomiting Stop: 03/12/23 17:11 Acetaminophen (Ofirmev) 1,000 mg in 100 mls @ 400 mls/hr IV Q8H PRN PRN Reason: Pain Rating 1-3 & Pre PT Stop: 03/13/23 13:39 Cefazolin Sodium (Ancef 2000mg) 2,000 mg in 15 mls @ 3.75 mls/min IV Q8H JOSE; Protocol Stop: 03/13/23 04:03 Lactated Ringer's (Lr) 1,000 mls @ 100 mls/hr IV .Q10H JOSE Stop: 04/11/23 13:37 Last Admin: 03/12/23 14:13 Dose: 100 mls/hr Promethazine HCl 12.5 mg/ (Sodium Chloride) 50.5 mls @ 202 mls/hr IV Q6H PRN PRN Reason: Nausea &/or Vomiting Stop: 04/11/23 13:37 Lorazepam 0.5 mg/ Syringe 0.5 mls @ 2 mls/min IV Q8H PRN; Protocol PRN Reason: Sedation/Anxiety Stop: 04/11/23 13:37 Dexamethasone 6 mg/ Syringe 1.5 mls @ 1 mls/min IV DAILY JOSE Stop: 03/15/23 09:02 Influenza Virus Vaccine Quadrival (Influenza Virus Quadrivalent Vaccine (Iiv4) 0.5 Ml Syr) 0.5 ml IM .ONCE ONE Stop: 03/15/23 09:01 Influenza Virus Vaccine Quadrival (Do Not Administer Flu Vaccine) 1 each N/A PRN PRN PRN Reason: Notification Stop: 04/11/23 13:37 Lactobacillus Acidophilus (Advanced Probiotic 1250 Mg Capsule) 2 cap PO DAILY JOSE Stop: 04/10/23 14:29 Last Admin: 03/12/23 14:11 Dose: 2 cap Lorazepam (Lorazepam 0.5 Mg Tab) 0.5 mg PO Q8H PRN PRN Reason: Sedation/Anxiety Stop: 04/11/23 13:37 Magnesium Hydroxide (Magnesium Hydroxide Susp 30 Ml Udc) 30 ml PO Q24H PRN PRN Reason: Constipation Stop: 04/11/23 13:37 Metoclopramide HCl (Metoclopramide Hcl Inj 5 Mg/Ml 2 Ml Vial) 10 mg IV Q6H PRN PRN Reason: Nausea &/or Vomiting Stop: 04/11/23 13:37 Naloxone HCl (Naloxone Hcl 0.4 Mg/1 Ml Vial/Carp) 0.1 mg IV Q5M PRN PRN Reason: Oversedation/Resp depression Stop: 04/11/23 13:37 Ondansetron HCl (Ondansetron Inj 2 Mg/Ml 2 Ml Vial) 4 mg IV ONCE PRN PRN Reason: PACU Use Only-Nausea/Vomiting Stop: 03/12/23 17:11 Ondansetron HCl (Ondansetron Inj 2 Mg/Ml 2 Ml Vial) 4 mg IV Q6H PRN PRN Reason: Nausea &/or Vomiting Stop: 04/11/23 13:37 Ondansetron HCl (Ondansetron 4 Mg Od Tab) 4 mg PO Q6H PRN PRN Reason: Nausea Stop: 04/11/23 13:37 Oxycodone HCl (Oxycodone Hcl Ir 5 Mg Tab (Immediate Release)) 5 - 10 mg PO Q4H PRN PRN Reason: Pain & Pre PT Stop: 03/26/23 13:37 Pantoprazole Sodium (Pantoprazole 40 Mg Tab) 40 mg PO DAILY JOSE Stop: 04/10/23 08:59 Last Admin: 03/12/23 14:11 Dose: 40 mg Pneumococcal 20-Valent Conj Vacc (Pneumococcal Vaccine (Pcv20) 20-Adamaris Conj-Dip Crm/Pf 0.5 Ml Syr) 0.5 ml IM .ONCE ONE Stop: 03/15/23 09:01 Pneumococcal Polyvalent Vaccine (Do Not Administer Pneumococcal Vaccine) 1 each N/A PRN PRN PRN Reason: Notification Stop: 04/11/23 13:37 Polyethylene Glycol (Polyethylene (Miralax) 17 Gm Pack) 17 gm PO Q6 JOSE Stop: 04/12/23 05:59 Senna/Docusate Sodium (Docusate Sodium/Senna 50/8.6mg Tab) 2 tab PO HS JOSE Stop: 04/11/23 20:59 Sodium Biphosphate/Sodium Phosphate (Sod Phosphate/Sod Biphosphate Enema 132 Ml Btl) 132 ml UT ONE PRN PRN Reason: Constipation Stop: 04/11/23 13:37 Tramadol HCl (Tramadol Hcl 50 Mg Tablet) 50 - 100 mg PO Q4H PRN PRN Reason: Moderate-Severe pain & Pre PT Stop: 04/11/23 13:37
[2023-03-12] MEDS: DOCUSATE SODIUM/SENNA 50/8.6MG TAB PO SCH (20:40)
[2023-03-12] MEDS: ceFAZolin 2000MG 2,000 MG/15 ML SYR IV SCH (20:42)
[2023-03-13] MEDS: traMADol HCL 50 MG TABLET PO PRN ×2 (01:15→08:31)
[2023-03-13] MEDS ORDERED: Nursing to Pharmacy Communication SCH (02:15)
[2023-03-13] MEDS: oxyCODONE HCL IR 5 MG TAB (IMMEDIATE RELEASE) PO PRN ×2 (02:48→02:55)
[2023-03-13] MEDS: LACTATED RINGER'S 1,000 ML IV SCH ×2 (03:54→13:58)
[2023-03-13] MEDS: ceFAZolin 2000MG 2,000 MG/15 ML SYR IV SCH (04:34)
[2023-03-13] MEDS: POLYETHYLENE (MIRALAX) 17 GM PACK PO SCH ×3 (05:14→17:07)
[2023-03-13 06:46] LABS: Basophils # (auto) 0.03 K/uL (0.00-0.20); Basophils % (auto) 0.2 %; Eosinophils # (auto) 0.04 K/uL (0.00-0.50); Eosinophils % (auto) 0.2 %; Hematocrit (blood only) 34.5 % (42.0-52.0); Hemoglobin 11.9 g/dl (14.0-18.0); Immature Granulocytes % (auto) 0.6 %; Lymphocytes # (auto) 1.73 K/uL (1.20-3.40); Lymphocytes % (auto) 9.9 %; Mean Corpuscular Hemoglobin 30.4 pg (25.0-34.0); Mean Corpuscular Hgb Conc 34.5 g/dL (32.0-36.0); Mean Corpuscular Volume 88.2 fL (80.0-100.0); Mean Platelet Volume 9.4 fL (9.4-12.4); Monocytes % (auto) 7.5 %; Neutrophils # (auto) 14.21 K/uL (1.40-6.50); Neutrophils % (auto) 81.6 %; Platelet Count 254 K/uL (130-400); RDW Coefficient of Variation 12.8 % (11.5-14.5); Red Blood Count 3.91 M/uL (4.70-6.10); White Blood Count 17.41 K/ul (4.8-10.8)
[2023-03-13 07:06] LABS: Calcium 8.2 mg/dl (8.6-10.3); Potassium 3.9 mmol/L (3.5-5.1)
[2023-03-13 07:11] LABS: BUN Creatinine Ratio 19.8 (10-20); Creatinine Clr Calc Pharmacy 87.2 ml/min; Est GFR (African American) 99.2 ml/min; Est GFR (Non-African American) 85.6 ml/min; Phosphorus 2.5 mg/dl (2.5-4.9)
[2023-03-13] MEDS: PANTOprazole 40 MG TAB PO SCH (08:32)
[2023-03-13] MEDS: dexAMETHasone 6 MG in SYRINGE 0 ML IV SCH (08:32)
[2023-03-13] MEDS: GABAPENTIN 800 MG TAB PO SCH ×3 (08:32→20:58)
[2023-03-13] MEDS: ADVANCED PROBIOTIC 1250 MG CAPSULE PO SCH (08:32)
--- NOTE | 2023-03-13 11:42 | Hospitalist Progress Note ---
Date of Service March 13, 2023 Assessment & Plan (1) Intractable low back pain: Plan: 62-year-old male with past medical history significant for GERD, degenerative's disease, generalized osteoarthritis, presents with severe back pain. Patient was in the ER on February 22, 2023 with severe back pain. And at that time lumbar spine MRI was done. This showed large central posterior disc protrusion at L1- L2 which abuts the transiting nerve roots. Mild to moderate central canal stenosis at this level and this was new compared to the MRI scan done done on January 31, 2022. Intractable low back pain MRI done in Feb 22 2023 showed large central posterior disc protrusion at L1- L2 which abuts the transiting nerve roots. Mild to moderate central canal stenosis at this level and this was new compared to the MRI scan done done on January 31, 2022. Failed outpatient treatment He is s/p Lumbar decompression and fusion L3-L5, POD # [address] Tomas EBChely 250ml Acute blood loss anemia, expected postsurgical blood loss and likely dilutional H&H stable at 11.9 and 34.5. Preop was 14.7 No indication for transfusion. Continue to monitor H&H. Will check CBC in a.m. Leukocytosis post operative, likely 2/2 steroids, stress reaction, UTI follow cbc UTI UA appears + did not complete the course of recent antibiotics (Cefuroxime)because of Diarrhea, stool now formed Currently asymptomatic Culture from 02/22 grew e. coli Urine culture growing pansensitive E. coli again empirically on ceftriaxone, Day #3 Will need to de-escalate to oral antibiotic upon discharge, consider quinolone instead Pt may need urology eval OP if recurrent UTI Diarrhea resolved, stool formed on probiotic GERD Omeprazole DVT prophylaxis SCDs for now Disposition Medical floor Full code Thank you for this consultation. We will follow the patient with you during their hospital stay. You can reach a member of the [facility] Hospitalist Team 10/09 via hospitalist role on tiger text. Pt was seen and examined in collaboration with Dr. Smith, please see addendum A total of 45 minutes was spent coordinating, documenting, and providing care for this patient excluding time spent in the performance of separately billed services. This included personally viewing all current laboratories and imaging studies, medication reconciliation, outpatient chart review, and discussion with specialists. (2) UTI (urinary tract infection): (3) Acute blood loss anemia: (4) Leukocytosis: Admission and Anticipated Discharge Date Admission Date: March 11, 2023 Supervising Physician Co-Signing Physician Notes Attending Addendum: care coordinated with JEREMIAH Yancey please refer to her notes for full details, I agree with her notes patient seen and examined, records reviewed by myself as well diagnoses and plan of care as per JEREMIAH Yancey's notes Darvin Smith MD Subjective Patient was seen and examined in 317. Follow-up low back pain with radiculopathy to left lower extremity. He is s/p Lumbar D/F. He feels much improved this morning. He pain is significantly better. He is ready to get catheter removed. He denies fever, chills, sweats, lightheadedness, dizziness, chest pain, shortness of breath, nausea, vomiting or abdominal pain. He is passing gas. Review of Systems Review of Systems: All systems reviewed & are unremarkable except as noted in HPI & below Physical Exam Physical Exam: Gen: WD/WN, NAD, A&O x3, lying supine in bed HEENT: Normocephalic, atraumatic, conjunctivae moist, sclerae anicteric, mucous membranes moist. Lung: Clear to Auscultation bilaterally, no wheezes/rales/rhonchi Heart: Regular rate, regular rhythm, no murmurs, rubs, or gallops Abdomen: Soft, NT, ND +BS x 4 Extremities: No edema lumbar dressing CDI, GISSELLE drain with serosang drainage Skin: Warm, no rash, negative turgor. : deng cath draining yellow urine Results & Data Results & Data Vital Signs (Past 12 Hours) Vital Signs Temp Pulse Resp BP BP Pulse Ox O2 Del Method 03/13/23 11:16 36.7 C 80 16 120/80 94 Room Air 03/13/23 07:28 36.9 C 76 16 124/70 93 Room Air 03/13/23 03:38 37.3 C 84 16 120/75 95 Room Air Laboratory Results Short CBC 03/13/23 Range/Units 05:41 WBC 17.41 H (4.8-10.8) K/ul Hgb 11.9 L (14.0-18.0) g/dl Hct 34.5 L (42.0-52.0) % Plt Count 254 (130-400) K/uL BMP 03/13/23 05:41 Sodium 137 Potassium 3.9 Chloride 107 Carbon Dioxide 23 BUN 19 Creatinine 0.96 Glucose 117 H Calcium 8.2 L I personally and independently interpreted patient's CBC with differential and BMP, mag and Phos. Medications Administered Current Inpatient Medications Acetaminophen (Acetaminophen 500 Mg Tab) 1,000 mg PO Q8H PRN PRN Reason: MILD Pain Scale 1,2,3 & Pre PT Stop: 04/11/23 13:37 Al Hydrox/Mg Hydrox/Simethicone (Aluminum/Magnesium Susp 30 Ml Udc) 30 ml PO Q6H PRN PRN Reason: Dyspepsia Stop: 04/11/23 13:37 Last Admin: 03/13/23 04:33 Dose: 30 ml Bisacodyl (Bisacodyl 10 Mg Supp) 10 mg ID DAILY PRN PRN Reason: Constipation Stop: 04/11/23 13:37 Diphenhydramine HCl (Diphenhydramine Capsule 25 Mg Cap) 25 mg PO Q6H PRN PRN Reason: Allergic Rhinitis/Insomnia Stop: 04/11/23 13:37 Famotidine (Famotidine 20 Mg Tab) 20 mg PO Q12H PRN PRN Reason: Dyspepsia Stop: 04/11/23 13:37 Last Admin: 03/13/23 02:40 Dose: 20 mg Gabapentin (Gabapentin 800 Mg Tab) 800 mg PO TID JOSE Stop: 04/10/23 20:59 Last Admin: 03/13/23 08:32 Dose: 800 mg Hydromorphone HCl (Hydromorphone Inj 0.5 Mg/0.5 Ml Syr) 0.5 mg IV Q3H PRN PRN Reason: MODERATE Pain (Scale 4,5,6) & Pre PT Stop: 03/26/23 13:37 Hydromorphone HCl (Hydromorphone Inj 1 Mg/Ml Syringe) 1 mg IV Q3H PRN PRN Reason: SEVERE Pain (Scale 7,8,9,10) Stop: 03/26/23 13:37 Hydroxyzine HCl (Hydroxyzine Hcl 25 Mg Tab) 25 mg PO Q8H PRN PRN Reason: Anxiety Stop: 04/11/23 13:37 Ceftriaxone Sodium 1,000 mg/ (Dextrose) 50 mls @ 100 mls/hr IV Q24H JOSE; Protocol Stop: 03/21/23 14:29 Last Infusion: 03/12/23 15:25 Dose: Infused Acetaminophen (Ofirmev) 1,000 mg in 100 mls @ 400 mls/hr IV Q8H PRN PRN Reason: Pain Rating 1-3 & Pre PT Stop: 03/13/23 13:39 Lactated Ringer's (Lr) 1,000 mls @ 100 mls/hr IV .Q10H JOSE Stop: 04/11/23 13:37 Last Admin: 03/13/23 03:54 Dose: 100 mls/hr Promethazine HCl 12.5 mg/ (Sodium Chloride) 50.5 mls @ 202 mls/hr IV Q6H PRN PRN Reason: Nausea &/or Vomiting Stop: 04/11/23 13:37 Lorazepam 0.5 mg/ Syringe 0.5 mls @ 2 mls/min IV Q8H PRN; Protocol PRN Reason: Sedation/Anxiety Stop: 04/11/23 13:37 Dexamethasone 6 mg/ Syringe 1.5 mls @ 1 mls/min IV DAILY JOSE Stop: 03/15/23 09:02 Last Admin: 03/13/23 08:32 Dose: 1 mls/min Influenza Virus Vaccine Quadrival (Influenza Virus Quadrivalent Vaccine (Iiv4) 0.5 Ml Syr) 0.5 ml IM .ONCE ONE Stop: 03/15/23 09:01 Influenza Virus Vaccine Quadrival (Do Not Administer Flu Vaccine) 1 each N/A PRN PRN PRN Reason: Notification Stop: 04/11/23 13:37 Lactobacillus Acidophilus (Advanced Probiotic 1250 Mg Capsule) 2 cap PO DAILY JOSE Stop: 04/10/23 14:29 Last Admin: 03/13/23 08:32 Dose: 2 cap Lorazepam (Lorazepam 0.5 Mg Tab) 0.5 mg PO Q8H PRN PRN Reason: Sedation/Anxiety Stop: 04/11/23 13:37 Magnesium Hydroxide (Magnesium Hydroxide Susp 30 Ml Udc) 30 ml PO Q24H PRN PRN Reason: Constipation Stop: 04/11/23 13:37 Metoclopramide HCl (Metoclopramide Hcl Inj 5 Mg/Ml 2 Ml Vial) 10 mg IV Q6H PRN PRN Reason: Nausea &/or Vomiting Stop: 04/11/23 13:37 Naloxone HCl (Naloxone Hcl 0.4 Mg/1 Ml Vial/Carp) 0.1 mg IV Q5M PRN PRN Reason: Oversedation/Resp depression Stop: 04/11/23 13:37 Ondansetron HCl (Ondansetron Inj 2 Mg/Ml 2 Ml Vial) 4 mg IV Q6H PRN PRN Reason: Nausea &/or Vomiting Stop: 04/11/23 13:37 Ondansetron HCl (Ondansetron 4 Mg Od Tab) 4 mg PO Q6H PRN PRN Reason: Nausea Stop: 04/11/23 13:37 Oxycodone HCl (Oxycodone Hcl Ir 5 Mg Tab (Immediate Release)) 5 - 10 mg PO Q4H PRN PRN Reason: Pain & Pre PT Stop: 03/26/23 13:37 Last Admin: 03/13/23 02:55 Dose: 5 mg Pantoprazole Sodium (Pantoprazole 40 Mg Tab) 40 mg PO DAILY JOSE Stop: 04/10/23 08:59 Last Admin: 03/13/23 08:32 Dose: 40 mg Pneumococcal 20-Valent Conj Vacc (Pneumococcal Vaccine (Pcv20) 20-Adamaris Conj-Dip Crm/Pf 0.5 Ml Syr) 0.5 ml IM .ONCE ONE Stop: 03/15/23 09:01 Pneumococcal Polyvalent Vaccine (Do Not Administer Pneumococcal Vaccine) 1 each N/A PRN PRN PRN Reason: Notification Stop: 04/11/23 13:37 Polyethylene Glycol (Polyethylene (Miralax) 17 Gm Pack) 17 gm PO Q6 JOSE Stop: 04/12/23 05:59 Last Admin: 03/13/23 05:14 Dose: Not Given Senna/Docusate Sodium (Docusate Sodium/Senna 50/8.6mg Tab) 2 tab PO HS JOSE Stop: 04/11/23 20:59 Last Admin: 03/12/23 20:40 Dose: Not Given Sodium Biphosphate/Sodium Phosphate (Sod Phosphate/Sod Biphosphate Enema 132 Ml Btl) 132 ml ID ONE PRN PRN Reason: Constipation Stop: 04/11/23 13:37 Tramadol HCl (Tramadol Hcl 50 Mg Tablet) 50 - 100 mg PO Q4H PRN PRN Reason: Moderate-Severe pain & Pre PT Stop: 04/11/23 13:37 Last Admin: 03/13/23 08:31 Dose: 100 mg (2) UTI (urinary tract infection) Hematuria presence: without hematuria Urinary tract infection type: acute cystitis Qualified Code(s): N30.00 - Acute cystitis without hematuria
--- NOTE | 2023-03-13 13:11 | Orthopedic Progress Note ---
Date of Service March 13, 2023 Assessment & Plan (1) Lumbar disc herniation with radiculopathy: Plan: At this time we will initiate physical therapy monitor his GISSELLE output anticipate discharge home in the next few days. Admission and Anticipated Discharge Date Admission Date: March 11, 2023 Subjective Patient's back pain is controlled leg symptoms markedly improved. Physical Exam Physical Exam: Patient is in the chair at the bedside. Is constricted testing. Appears comfortable. Results & Data Vital Signs (Past 12 Hours) Vital Signs Temp Pulse Resp BP BP Pulse Ox O2 Del Method 03/13/23 11:16 36.7 C 80 16 120/80 94 Room Air 03/13/23 07:28 36.9 C 76 16 124/70 93 Room Air 03/13/23 03:38 37.3 C 84 16 120/75 95 Room Air
[2023-03-13] MEDS: cefTRIAXone SODIUM 1,000 MG in DEXTROSE 5 % MINI-B 50 ML IV SCH (14:37)
[2023-03-13] MEDS: DOCUSATE SODIUM/SENNA 50/8.6MG TAB PO SCH (20:57)
[2023-03-14] MEDS: POLYETHYLENE (MIRALAX) 17 GM PACK PO SCH ×5 (00:24→23:28)
[2023-03-14 06:43] LABS: Hematocrit (blood only) 33.7 % (42.0-52.0); Hemoglobin 11.2 g/dl (14.0-18.0); Mean Corpuscular Hgb Conc 33.2 g/dL (32.0-36.0); Mean Corpuscular Volume 90.3 fL (80.0-100.0); Mean Platelet Volume 9.2 fL (9.4-12.4); Platelet Count 230 K/uL (130-400); RDW Standard Deviation 42.8 fL (36.4-46.3); Red Blood Count 3.73 M/uL (4.70-6.10); White Blood Count 12.93 K/ul (4.8-10.8)
[2023-03-14 06:49] LABS: Creatinine Clr Calc Pharmacy 108.7 ml/min; Est GFR (African American) 114.3 ml/min; Est GFR (Non-African American) 98.6 ml/min
--- NOTE | 2023-03-14 08:22 | Orthopedic Progress Note ---
Date of Service March 14, 2023 Assessment & Plan (1) Lumbar disc herniation with radiculopathy: Plan: Will continue physical therapy today monitor GISSELLE output anticipate discharge home tomorrow. Admission and Anticipated Discharge Date Admission Date: March 11, 2023 Subjective Patient resting comfortably. Resting with physical therapy. Physical Exam Physical Exam: Patient sleeping soundly. Difficult to arouse. Results & Data Vital Signs (Past 12 Hours) Vital Signs Temp Pulse Resp BP BP Pulse Ox O2 Del Method 03/14/23 08:12 36.7 C 73 18 124/84 96 Room Air 03/13/23 22:23 Room Air 03/13/23 22:09 37.1 C 72 18 119/74 94 Room Air
[2023-03-14] MEDS: traMADol HCL 50 MG TABLET PO PRN ×2 (08:39→23:25)
[2023-03-14] MEDS: PANTOprazole 40 MG TAB PO SCH (08:40)
[2023-03-14] MEDS: ADVANCED PROBIOTIC 1250 MG CAPSULE PO SCH (08:40)
[2023-03-14] MEDS: GABAPENTIN 800 MG TAB PO SCH ×3 (08:40→20:12)
[2023-03-14] MEDS: dexAMETHasone 6 MG in SYRINGE 0 ML IV SCH (08:42)
--- NOTE | 2023-03-14 13:23 | Hospitalist Progress Note ---
Date of Service March 14, 2023 Assessment & Plan (1) Intractable low back pain: Plan: 62-year-old male with past medical history significant for GERD, degenerative's disease, generalized osteoarthritis, presents with severe back pain. Patient was in the ER on February 22, 2023 with severe back pain. And at that time lumbar spine MRI was done. This showed large central posterior disc protrusion at L1- L2 which abuts the transiting nerve roots. Mild to moderate central canal stenosis at this level and this was new compared to the MRI scan done done on January 31, 2022. Intractable low back pain MRI done in Feb 22 2023 showed large central posterior disc protrusion at L1- L2 which abuts the transiting nerve roots. Mild to moderate central canal stenosis at this level and this was new compared to the MRI scan done done on January 31, 2022. Failed outpatient treatment He is s/p Lumbar decompression and fusion L3-L5, POD # [address] Genoveva RIOS 250ml Stable overall Pain well-controlled Ambulating with walker Anticipate discharge to home tomorrow Acute blood loss anemia, expected postsurgical blood loss and likely dilutional H&H stable at 11.9 and 34.5. Preop was 14.7 No indication for transfusion. Continue to monitor H&H. Will check CBC in a.m. Hemoglobin stable at 11.2 Leukocytosis post operative, likely 2/2 steroids, stress reaction, UTI Resolving UTI UA appears + did not complete the course of recent antibiotics (Cefuroxime)because of Diarrhea, stool now formed Currently asymptomatic Culture from 02/22 grew e. coli Urine culture growing pansensitive E. coli again empirically on ceftriaxone, Day #3 Will need to de-escalate to oral antibiotic upon discharge, consider quinolone instead Pt may need urology eval OP if recurrent UTI Stable Transition to p.o. cefdinir upon discharge to complete 10-day course Probiotics daily for 2 weeks Diarrhea resolved, stool formed on probiotic GERD Omeprazole DVT prophylaxis SCDs for now Disposition Medical floor Full code Thank you for this consultation. We will follow the patient with you during their hospital stay. You can reach a member of the [facility] Hospitalist Team 10/09 via hospitalist role on tiger text. (2) UTI (urinary tract infection): (3) Acute blood loss anemia: (4) Leukocytosis: Admission and Anticipated Discharge Date Admission Date: March 11, 2023 Subjective Follow-up status post back surgery, UTI, etc. Seen resting in bed, sitting up, talking on the phone with his friend States he feels fine overall Back pain continues to improve, ambulation also improving No abdominal pain, nausea or vomiting No BM since surgery date No other new symptoms Review of Systems Review of Systems: all noted and negative except for above Physical Exam Physical Exam: General- oriented x 3, not in distress, speaks in sentences with no effort or accessory muscle use Eyes- anicteric Neck- no JVD Lungs- clear breath sounds bilaterally, no rales/wheezes Heart- normal rate, regular rhythm; no murmurs Abdomen- normal bowel sounds, nondistended, soft, nontender Extremities- no pretibial edema, no calf tenderness Neuro- alert, oriented x 3; no gross focal neurologic deficits Skin- warm & dry Results & Data Results & Data Vital Signs (Past 12 Hours) Vital Signs Temp Pulse Resp BP Pulse Ox O2 Del Method 03/14/23 08:12 36.7 C 73 18 124/84 96 Room Air all noted and reviewed including below (2) UTI (urinary tract infection) Hematuria presence: without hematuria Urinary tract infection type: acute cystitis Qualified Code(s): N30.00 - Acute cystitis without hematuria
[2023-03-14] MEDS: cefTRIAXone SODIUM 1,000 MG in DEXTROSE 5 % MINI-B 50 ML IV SCH (14:47)
[2023-03-14] MEDS: DOCUSATE SODIUM/SENNA 50/8.6MG TAB PO SCH (20:12)
[2023-03-14] MEDS: oxyCODONE HCL IR 5 MG TAB (IMMEDIATE RELEASE) PO PRN (20:13)
[2023-03-15] MEDS: POLYETHYLENE (MIRALAX) 17 GM PACK PO SCH (05:09)
[2023-03-15] MEDS: dexAMETHasone 6 MG in SYRINGE 0 ML IV SCH (08:05)
[2023-03-15] MEDS: PANTOprazole 40 MG TAB PO SCH (08:05)
[2023-03-15] MEDS: ADVANCED PROBIOTIC 1250 MG CAPSULE PO SCH (08:05)
[2023-03-15] MEDS: GABAPENTIN 800 MG TAB PO SCH (08:05)
[2023-03-15] MEDS ORDERED: INFLUENZA VIRUS QUADRIVALENT VACCINE (IIV4) 0.5 ML SYR IM ONE (09:00)
[2023-03-15] MEDS ORDERED: PNEUMOCOCCAL VACCINE (PCV20) 20-VAL CONJ-DIP CRM/PF 0.5 ML SYR IM ONE (09:00)
--- NOTE | 2023-03-15 09:32 | Discharge Summary ---
Date of Service March 15, 2023 Admission HPI Per Admitting Provider 62-year-old male with past medical history significant for GERD, degenerative's disease, generalized osteoarthritis, presents with severe back pain. Patient was in the ER on February 22, 2023 with severe back pain. And at that time lumbar spine MRI was done. This showed large central posterior disc protrusion at L1- L2 which abuts the transiting nerve roots. Mild to moderate central canal stenosis at this level and this was new compared to the MRI scan done done on January 31, 2022. At that time we also found a UTI. Patient was discharged on prednisone and pain meds to follow-up as outpatient with orthospine and also prescribe cefuroxime for UTI. He again came in February 25 with severe back pain and after IV pain medications felt better and felt like going home. Patient states he did not take antibiotics for more than 3 to 4 days because a lot of diarrhea and abdominal discomfort from the antibiotic. But again comes back today because of having severe back pain again radiating to the left leg. It has become more severe than before. Having ambulatory dysfunction. Because of using of his right leg more than the left leg is feeling weak in both legs. Denies any fevers. No abdominal pain. Micturating okay. Denies chest pain or shortness of breath. Denies headache. No runny nose or sore throat or cough. Hemodynamically stable. Was able to ambulate to bathroom in the ER slowly. Past medical history. As mentioned above Past surgical history. Fusion of the wrist joint. Social history. Smokes 1 pack a day for last 40 years. Currently no alcohol use. Occasional marijuana. Family history. Mother had asthma. Father had spinal cancer. Diabetes. Principal Diagnosis Lumbar spinal stenosis with hernia nucleus pulposus and radiculopathy Discharge Data Allergies Allergy/AdvReac Type Severity Reaction Status Date / Time bee venom protein (honey bee) Allergy Intermediate EXTRA Verified 01/31/22 18:34 SWELLING AT SITES Consultations 03/11/23 03:34 ED Decision to Admit Stat 03/11/23 08:03 Consult Orthopedic Spine Surgery Routine Procedures Performed Operation Date: 03/12/23 09:35 Actual Procedures p Lumbar Decompression and Fusion L3-L4, L4-L5 with spinal cord monitoring(Not Applicable) - Pablito Tomas DO Ordered Studies 03/12/23 09:35 FL lumbar spine 2-3V Routine Hospital Course (1) Lumbar disc herniation with radiculopathy: Patient was met with the severe back and leg pain with inability ambulate underwent emergent decompression fusion trial as well as negative orthopedic for postoperative. Postop he progressed appropriately her pain well-controlled. GSISELLE drain decreasing appropriately. Expected testing. Subsequent discharge home per discharge orders instructions from the chart for further view. Total Time Total Time Spent Total Time Spent (In Minutes): 20 minutes Discharge Plan Discharge Items Patient Disposition: Home - Self-Care Reason For Visit: SEVERE BACK PAIN Discharge Diagnosis: Lumbar spinal stenosis with herniated disc process and neurogenic claudication Activity: As commented below Non-emergency contact: Primary Care Provider Call non-emergency contact if: you have any medication questions Follow-up/Referrals: Anibal Valencia MD [Primary Care Provider] - (Date & Time 03/20/2023 3:20 PM Provider Anibal Valencia MD Department Family [facility] ) Diet: Regular Addtl Attending Provider Instructions: ACTIVITY RECOMMENDATIONS: SELF CARE INSTRUCTIONS AFTER THORACIC/LUMBAR FUSIONS 1. You may walk to your tolerance. It is good exercise for your legs and back. Expect some back and intermittent leg aches and pains. 2. You may perform "counter-top" level activities (make a sandwich, brian with a project, etc.). 3. No bending or lifting of more than 10 pounds or back twisting of any nature (roll like a log when turning in bed). 4. You may ride in a car for 20-30 minutes at a time. No driving until after your first visit with your doctor. 5. Frequent changes of position and restricting sitting to 30 minutes at a time will help limit the amount of back spasms and stiffness you may experience. 6. You may discontinue the use of ambulatory aids (cane, crutches, etc.) once your strength and confidence allow. 7. You may instructor military science the shower and let water strike your incision when you arrive home at least once daily. Do not take a tub bath, sit in a hot tub or go into a swimming pool until after your first recheck in the office. SPECIAL CARE INSTRUCTIONS: VERY IMPORTANT TO READ AND REVIEW A. Your surgical incision has been closed with a cosmetic suture under the skin that will dissolve in about 6 weeks. In 14 days, you can use a pair of clean scissors and cut the suture that is left outside of the skin at the ends of your incision. 1. The small skin tapes can be removed 7 days after surgery if they have not fallen off by that point. 2. You may keep the wound open to air as much as possible to promote healing after post-op day number 5 unless told otherwise by your doctor. 3. If you think the wound looks like it is becoming infected (redness or worsening drainage) and/or you are experiencing fever, chill or worsening back pain and muscle spasms, contact the office so that we may evaluate you as soon as possible. B. Complications are uncommon, but please contact us if you have any signs or symptoms of: 1. wound infection (fever higher than 102.5 degrees F, redness, separation of wound, drainage, or increasing pain from the incision) 2. blood clots in legs (pain, swelling, redness and warmth in legs) 3. urinary tract infection (fever higher than 102.5 degrees F, burning upon urination or increased frequency of urination) 4. nerve problems (inability to walk on your toes or heels, numbness, loss of bowel or bladder control) 5. any other symptoms that concern you C. Please call the office at if you have any concerns or ques tions about your operation or recovery. D. No smoking! Smoking drastically decreases the chance of a solid fusion. E. Do not take any anti-inflammatory medications (Indocin, Advil, Motrin, Aspirin, Naprosyn, etc.) as these may inhibit the chance of a solid fusion. Tylenol is okay to take for pain. MANAGING PAIN AFTER SPINAL SURGERY 1. Narcotic medication is intended for short-term use and will be provided for surgical pain. Surgical pain usually lasts for a period of 4-6 weeks. Narcotic medication includes Percocet, Vicodin, Darvocet, Tylenol #3 or Lortab. 2. Longer-term pain is more appropriately treated with non-narcotic medication such as Tylenol ES. 3. Muscle spasm is not appropriately treated with narcotics. Muscle relaxers such as Soma, Flexeril or Skelaxin can be used along with Tylenol ES. 4. Remember that we all live with some "aches and pains". This is not unusual or uncommon after an injury or as we get older. a. Back pain is expected and may include muscle spasms for 4 to 6 weeks after surgery. The pain should gradually improve. If the pain worsens for no apparent reason, please contact the office. b. Intermittent leg pain may also be experienced and should not be concerned about unless it worsens for no apparent reason. If so, please contact the office. 5. We will provide appropriate medication within the normal guidelines of their prescribed use. We will also be very cautious and aware of potential abuse and extended duration of patients' medication needs. a. Pain medications are for your comfort and to assist with sleep and rest so that the tissue can heal. They are not provided in order to return to normal activity and should not be used through the day. To do so or worsening pain at night can result from ongoing tissue damage and development of tolerance to the prescribed medicine. 6. Please allow 2-3 days to process refills. Prescriptions will not be mailed but must be picked up at the office. FOLLOW UP VISIT: Keep your scheduled follow-up appointment. Any questions, please call the office at . Pending Studies at Discharge: No Stand-Alone Forms: My [facility], Smoking Cessation Medications and DC Order Prescriptions: New tramadol 50 mg tablet 50 mg PO Q6H PRN (Reason: pain, moderate) Qty: 30 0RF oxycodone 5 mg tablet 5 mg PO Q6H PRN (Reason: pain) Qty: 30 0RF Continued meloxicam 15 mg tablet 15 mg PO DAILY methocarbamol 750 mg tablet 750 mg PO TID omeprazole 20 mg capsule,delayed release(DR/EC) 20 mg PO DAILY gabapentin 800 mg tablet 800 mg PO TID Discharge Orders: Discharge Order (Routine); Ordered 03/15/23 Ordered By: Pablito Tomas Admission Data Admit Date/Time: 03/11/23 04:29 Attending Provider: Darvin Smith Admit Provider: Ja Decker Primary Care Provider: Anibal Valencia Other Providers: Ja Decker; Pablito Tomas
--- NOTE | 2023-03-15 12:56 | Hospitalist Progress Note ---
Date of Service March 15, 2023 delayed entry date of service noted above Assessment & Plan (1) Intractable low back pain: Plan: 62-year-old male with past medical history significant for GERD, degenerative's disease, generalized osteoarthritis, presents with severe back pain. Patient was in the ER on February 22, 2023 with severe back pain. And at that time lumbar spine MRI was done. This showed large central posterior disc protrusion at L1- L2 which abuts the transiting nerve roots. Mild to moderate central canal stenosis at this level and this was new compared to the MRI scan done done on January 31, 2022. Intractable low back pain MRI done in Feb 22 2023 showed large central posterior disc protrusion at L1- L2 which abuts the transiting nerve roots. Mild to moderate central canal stenosis at this level and this was new compared to the MRI scan done done on January 31, 2022. Failed outpatient treatment He is s/p Lumbar decompression and fusion L3-L5, by Dr. Tomas EBChely 250ml Stable overall Pain well-controlled Ambulating with walker Acute blood loss anemia, expected postsurgical blood loss and likely dilutional H&H stable at 11.9 and 34.5. Preop was 14.7 Hemoglobin stable at 11.2 asymptomatic Leukocytosis post operative, likely 2/2 steroids, stress reaction, UTI Resolving UTI UA appears + did not complete the course of recent antibiotics (Cefuroxime)because of Diarrhea, stool now formed Culture from 02/22 grew e. coli Urine culture growing pansensitive E. coli again given ceftriaxone IV Stable Transition to p.o. cefdinir upon discharge to complete 10-day course Probiotics daily for 2 weeks Diarrhea resolved, stool formed on probiotic GERD Omeprazole DVT prophylaxis SCDs for now Disposition Medical floor Full code (2) UTI (urinary tract infection): (3) Acute blood loss anemia: (4) Leukocytosis: Admission and Anticipated Discharge Date Admission Date: March 11, 2023 Subjective ff up for back pain, etc seen resting in bed, comfortable states he feels fine overall no back pain ambulating with no problems no chest pain, dyspnea, palpitations, dizziness no other symptoms Review of Systems Review of Systems: all noted and negative except for above Physical Exam Physical Exam: General- oriented x 3, not in distress, speaks in sentences with no effort or accessory muscle use Eyes- anicteric Neck- no JVD Lungs- clear breath sounds bilaterally, no crackles/wheezing Heart- normal rate, regular rhythm; no murmurs Abdomen- normal bowel sounds, nondistended, soft, nontender Extremities- no pretibial edema, no calf tenderness Neuro- alert, oriented x 3; no gross focal neurologic deficits Skin- warm & dry Results & Data Results & Data Vital Signs (Past 12 Hours) Vital Signs Temp Pulse Resp BP BP Pulse Ox O2 Del Method 03/15/23 11:25 36.6 C 68 16 125/79 119/74 98 03/15/23 07:16 36.6 C 68 16 125/79 98 Room Air all noted and reviewed including below (2) UTI (urinary tract infection) Hematuria presence: without hematuria Urinary tract infection type: acute cystitis Qualified Code(s): N30.00 - Acute cystitis without hematuria
--- NOTE | 2023-03-18 17:32 | Discharge Summary ---
Discharge Summary Date of Service March 18, 2023 delayed entry date of service noted above Notes For Next Care Provider Medication Changes From Visit per assessment and plan below Admission HPI Per Admitting Provider 62-year-old male with past medical history significant for GERD, degenerative's disease, generalized osteoarthritis, presents with severe back pain. Patient was in the ER on February 22, 2023 with severe back pain. And at that time lumbar spine MRI was done. This showed large central posterior disc protrusion at L1- L2 which abuts the transiting nerve roots. Mild to moderate central canal stenosis at this level and this was new compared to the MRI scan done done on January 31, 2022. At that time we also found a UTI. Patient was discharged on prednisone and pain meds to follow-up as outpatient with orthospine and also prescribe cefuroxime for UTI. He again came in February 25 with severe back pain and after IV pain medications felt better and felt like going home. Patient states he did not take antibiotics for more than 3 to 4 days because a lot of diarrhea and abdominal discomfort from the antibiotic. But again comes back today because of having severe back pain again radiating to the left leg. It has become more severe than before. Having ambulatory dysfunction. Because of using of his right leg more than the left leg is feeling weak in both legs. Denies any fevers. No abdominal pain. Micturating okay. Denies chest pain or shortness of breath. Denies headache. No runny nose or sore throat or cough. Hemodynamically stable. Was able to ambulate to bathroom in the ER slowly. Past medical history. As mentioned above Past surgical history. Fusion of the wrist joint. Social history. Smokes 1 pack a day for last 40 years. Currently no alcohol use. Occasional marijuana. Family history. Mother had asthma. Father had spinal cancer. Diabetes. Admission Exam Per Admitting Provider Oxycodone, Tramadol- as needed for pain Cefdinir- antibiotic for urinary tract infection Principal Dx & Hospital Course #1 = Principal Diagnosis (1) Intractable low back pain: 62-year-old male with past medical history significant for GERD, degenerative's disease, generalized osteoarthritis, presents with severe back pain. Patient was in the ER on February 22, 2023 with severe back pain. And at that time lumbar spine MRI was done. This showed large central posterior disc protrusion at L1- L2 which abuts the transiting nerve roots. Mild to moderate central canal stenosis at this level and this was new compared to the MRI scan done done on January 31, 2022. Intractable low back pain MRI done in Feb 22 2023 showed large central posterior disc protrusion at L1- L2 which abuts the transiting nerve roots. Mild to moderate central canal adan nosis at this level and this was new compared to the MRI scan done done on January 31, 2022. Failed outpatient treatment He is s/p Lumbar decompression and fusion L3-L5, by Dr. Tomas EBL 250ml Stable overall Pain well-controlled Ambulating with walker Acute blood loss anemia, expected postsurgical blood loss and likely dilutional H&H stable at 11.9 and 34.5. Preop was 14.7 Hemoglobin stable at 11.2 asymptomatic Leukocytosis post operative, likely 2/2 steroids, stress reaction, UTI Resolving UTI UA appears + did not complete the course of recent antibiotics (Cefuroxime)because of Diarrhea, stool now formed Culture from 02/22 grew e. coli Urine culture growing pansensitive E. coli again given ceftriaxone IV Stable Transition to p.o. cefdinir upon discharge to complete 10-day course Probiotics daily for 2 weeks Diarrhea resolved, stool formed on probiotic GERD Omeprazole DVT prophylaxis SCDs for now Disposition Medical floor Full code (2) UTI (urinary tract infection): (3) Acute blood loss anemia: (4) Leukocytosis: Discharge Exam General- oriented x 3, not in distress, speaks in sentences with no effort or accessory muscle use Eyes- anicteric Neck- no JVD Lungs- clear breath sounds bilaterally, no crackles/wheezing Heart- normal rate, regular rhythm; no murmurs Abdomen- normal bowel sounds, nondistended, soft, nontender Extremities- no pretibial edema, no calf tenderness Neuro- alert, oriented x 3; no gross focal neurologic deficits Skin- warm & dry Updated Medication List Medication Instructions Recorded Confirmed Type gabapentin 800 mg tablet 800 mg PO TID 03/11/23 03/11/23 History meloxicam 15 mg tablet 15 mg PO DAILY 03/11/23 03/11/23 History methocarbamol 750 mg tablet 750 mg PO TID 03/11/23 03/11/23 History omeprazole 20 mg capsule,delayed 20 mg PO DAILY 03/11/23 03/11/23 History release oxycodone 5 mg tablet 5 mg PO Q6H PRN pain #30 tabs 01/24/24 Rx tramadol 50 mg tablet 50 mg PO Q6H PRN pain, moderate 03/13/23 Rx #30 tabs cefdinir 300 mg capsule 300 mg PO BID 6 days #12 caps 03/15/23 Rx Hospital Stay Data Consultations 03/11/23 03:34 ED Decision to Admit Stat 03/11/23 08:03 Consult Orthopedic Spine Surgery Routine Procedures Performed Operation Date: 03/12/23 09:35 Actual Procedures p Lumbar Decompression and Fusion L3-L4, L4-L5 with spinal cord monitoring(Not Applicable) - Pablito Tomas, DO Diagnostic Imagining Performed Laboratory Results WBC 12.93 K/ul (4.8-10.8) H 03/14/23 06:11 RBC 3.73 M/uL (4.70-6.10) L 03/14/23 06:11 Hgb 11.2 g/dl (14.0-18.0) L 03/14/23 06:11 Hct 33.7 % (42.0-52.0) L 03/14/23 06:11 MCV 90.3 fL (80.0-100.0) 03/14/23 06:11 MCH 30.0 pg (25.0-34.0) 03/14/23 06:11 MCHC 33.2 g/dL (32.0-36.0) 03/14/23 06:11 RDW Std Deviation 42.8 fL (36.4-46.3) 03/14/23 06:11 RDW Coeff of Eli 13.0 % (11.5-14.5) 03/14/23 06:11 Plt Count 230 K/uL (130-400) 03/14/23 06:11 MPV 9.2 fL (9.4-12.4) L 03/14/23 06:11 Immature Gran % (Auto) 0.6 % 03/13/23 05:41 Neut % (Auto) 81.6 % 03/13/23 05:41 Lymph % (Auto) 9.9 % 03/13/23 05:41 [place] % (Auto) 7.5 % 03/13/23 05:41 Eos % (Auto) 0.2 % 03/13/23 05:41 Baso % (Auto) 0.2 % 03/13/23 05:41 Neut # (Auto) 14.21 K/uL (1.40-6.50) H 03/13/23 05:41 Lymph # (Auto) 1.73 K/uL (1.20-3.40) 03/13/23 05:41 [place] # (Auto) 1.30 K/uL (0.11-0.59) H 03/13/23 05:41 Eos # (Auto) 0.04 K/uL (0.00-0.50) 03/13/23 05:41 Baso # (Auto) 0.03 K/uL (0.00-0.20) 03/13/23 05:41 Immature Gran # (Auto) 0.10 K/uL (0.01-0.20) 03/13/23 05:41 Sodium 137 mmol/L (136-145) 03/13/23 05:41 Potassium 3.9 mmol/L (3.5-5.1) 03/13/23 05:41 Chloride 107 mmol/L (98-107) 03/13/23 05:41 Carbon Dioxide 23 mmol/L (21-32) 03/13/23 05:41 Anion Gap 7 (3-11) 03/13/23 05:41 BUN 19 mg/dl (6-23) 03/13/23 05:41 Creatinine 0.77 mg/dl (0.6-1.4) 03/14/23 06:11 Est Cr Clr Drug Dosing 108.7 ml/min 03/14/23 06:11 Est GFR ( Amer) 114.3 ml/min 03/14/23 06:11 Est GFR (Non-Af Amer) 98.6 ml/min 03/14/23 06:11 BUN/Creatinine Ratio 19.8 (10-20) 03/13/23 05:41 Glucose 117 mg/dl (70-99(Fasting)) H 03/13/23 05:41 Calcium 8.2 mg/dl (8.6-10.3) L 03/13/23 05:41 Phosphorus 2.5 mg/dl (2.5-4.9) 03/13/23 05:41 Magnesium 2.0 mg/dl (1.7-2.4) 03/13/23 05:41 Total Bilirubin 0.7 mg/dl (0.2-1.0) 03/12/23 05:51 AST 14 U/L (13-39) 03/12/23 05:51 ALT 16 U/L (7-52) 03/12/23 05:51 Alkaline Phosphatase 91 U/L (34-104) 03/12/23 05:51 Total Protein 6.2 gm/dl (6.0-8.3) 03/12/23 05:51 Albumin 3.8 gm/dl (3.4-5.0) 03/12/23 05:51 Globulin 2.4 gm/dl (2.5-4.0) L 03/12/23 05:51 Albumin/Globulin Ratio 1.6 (0.9-2) 03/12/23 05:51 Urine Color Yellow 03/11/23 Unknown Urine Appearance Cloudy (Clear) A 03/11/23 Unknown Urine pH 5.5 (4.5-7.5) 03/11/23 Unknown Ur Specific [place] 1.019 (1.000-1.030) 03/11/23 Unknown Urine Protein Negative (Negative) 03/11/23 Unknown Urine Glucose (UA) Negative (Negative) 03/11/23 Unknown Urine Ketones Trace (Negative) H 03/11/23 Unknown Urine Blood Negative (Negative) 03/11/23 Unknown Urine Nitrite Positive (Negative) A 03/11/23 Unknown Urine Bilirubin Negative (Negative) 03/11/23 Unknown Urine Urobilinogen Negative (Negative) 03/11/23 Unknown Ur Leukocyte Esterase Negative (Negative) 03/11/23 Unknown Urine WBC (Auto) 5-10 /hpf (0-5) H 03/11/23 Unknown Urine RBC (Auto) 0-4 /hpf (0-4) 03/11/23 Unknown U Hyaline Cast (Auto) 1-5 /lpf (0-5) 03/11/23 Unknown U Epithel Cells (Auto) 0-5 /lpf (0-5) 03/11/23 Unknown Urine Bacteria (Auto) 4+ (Negative) H 03/11/23 Unknown Impressions Chest X-Ray 03/11/23 11:54 SUPINE AP CHEST RADIOGRAPH CLINICAL HISTORY: Preoperative evaluation. COMPARISON STUDY: Chest radiograph January 15, 2017. FINDINGS: No pneumothorax or pleural effusion is identified on supine exam. Cardiomediastinal silhouette is unremarkable. No evidence for pulmonary edema. There is no consolidation to suggest pneumonia. Several old right rib fractures are incidentally noted. IMPRESSION: No acute cardiopulmonary findings. ACT 112: Negative or not required by law. Electronically signed by: Doe Dunn M.D. 03/11/2023 1:20 PM Lumbar Spine X-Ray 03/12/23 09:35 FL lumbar spine 2-3V CLINICAL HISTORY: L4-L5 DECOMPRESSION FUSIONchronic low back pain COMPARISON STUDY: Lumbar spine MRI 02/22/2023 FLUOROSCOPY TIME: 20.5 seconds FLUOROSCOPY IMAGES: 2 EXPOSURE DOSE: 11.71 mGy FINDINGS: Posterior interbody rods and screw fusion hardware with discectomy is noted at what is labeled the L3-L5 levels. The hardware appears intact. Moderate multilevel intervertebral disc space narrowing and spondylotic spurring. No unexpected opaque foreign body identified. IMPRESSION: Fluoroscopic assistance as above. ACT 112: Negative or not required by law. Electronically signed by: Jeronimo Bailey M.D. 03/12/2023 12:24 PM 03/12/23 09:35 FL lumbar spine 2-3V Routine Pending Results Patient Have Any Pending Studies at Discharge: No Discharge Instructions Given to Patient (Per Discharging Provider) ACTIVITY RECOMMENDATIONS: SELF CARE INSTRUCTIONS AFTER THORACIC/LUMBAR FUSIONS 1. You may walk to your tolerance. It is good exercise for your legs and back. Expect some back and intermittent leg aches and pains. 2. You may perform "counter-top" level activities (make a sandwich, brian with a project, etc.). 3. No bending or lifting of more than 10 pounds or back twisting of any nature (roll like a log when turning in bed). 4. You may ride in a car for 20-30 minutes at a time. No driving until after your first visit with your doctor. 5. Frequent changes of position and restricting sitting to 30 minutes at a time will help limit the amount of back spasms and stiffness you may experience. 6. You may discontinue the use of ambulatory aids (cane, crutches, etc.) once your strength and confidence allow. 7. You may bearing ring assembler the shower and let water strike your incision when you arrive home at least once daily. Do not take a tub bath, sit in a hot tub or go into a swimming pool until after your first recheck in the office. SPECIAL CARE INSTRUCTIONS: VERY IMPORTANT TO READ AND REVIEW A. Your surgical incision has been closed with a cosmetic suture under the skin that will dissolve in about 6 weeks. In 14 days, you can use a pair of clean scissors and cut the suture that is left outside of the skin at the ends of your incision. 1. The small skin tapes can be removed 7 days after surgery if they have not fallen off by that point. 2. You may keep the wound open to air as much as possible to promote healing after post-op day number 5 unless told otherwise by your doctor. 3. If you think the wound looks like it is becoming infected (redness or worsening drainage) and/or you are experiencing fever, chill or worsening back pain and muscle spasms, contact the office so that we may evaluate you as soon as possible. B. Complications are uncommon, but please contact us if you have any signs or symptoms of: 1. wound infection (fever higher than 102.5 degrees F, redness, separation of wound, drainage, or increasing pain from the incision) 2. blood clots in legs (pain, swelling, redness and warmth in legs) 3. urinary tract infection (fever higher than 102.5 degrees F, burning upon urination or increased frequency of urination) 4. nerve problems (inability to walk on your toes or heels, numbness, loss of bowel or bladder control) 5. any other symptoms that concern you C. Please call the office at if you have any concerns or questions about your operation or recovery. D. No smoking! Smoking drastically decreases the chance of a solid fusion. E. Do not take any anti-inflammatory medications (Indocin, Advil, Motrin, Aspirin, Naprosyn, etc.) as these may inhibit the chance of a solid fusion. Tylenol is okay to take for pain. MANAGING PAIN AFTER SPINAL SURGERY 1. Narcotic medication is intended for short-term use and will be provided for surgical pain. Surgical pain usually lasts for a period of 4-6 weeks. Narcotic medication includes Percocet, Vicodin, Darvocet, Tylenol #3 or Lortab. 2. Longer-term pain is more appropriately treated with non-narcotic medication such as Tylenol ES. 3. Muscle spasm is not appropriately treated with narcotics. Muscle relaxers such as Soma, Flexeril or Skelaxin can be used along with Tylenol ES. 4. Remember that we all live with some "aches and pains". This is not unusual or uncommon after an injury or as we get older. a. Back pain is expected and may include muscle spasms for 4 to 6 weeks after surgery. The pain should gradually improve. If the pain worsens for no apparent reason, please contact the office. b. Intermittent leg pain may also be experienced and should not be concerned about unless it worsens for no apparent reason. If so, please contact the office. 5. We will provide appropriate medication within the normal guidelines of their prescribed use. We will also be very cautious and aware of potential abuse and extended duration of patients' medication needs. a. Pain medications are for your comfort and to assist with sleep and rest so that the tissue can heal. They are not provided in order to return to normal activity and should not be used through the day. To do so or worsening pain at night can result from ongoing tissue damage and development of tolerance to the prescribed medicine. 6. Please allow 2-3 days to process refills. Prescriptions will not be mailed but must be picked up at the office. FOLLOW UP VISIT: Keep your scheduled follow-up appointment. Any questions, please call the office at . PLEASE REFER TO YOUR NEW MEDICATION LIST AND FOLLOW INSTRUCTIONS CAREFULLY. YOUR NEW MEDICATIONS INCLUDE: Oxycodone, Tramadol- as needed for pain Cefdinir- antibiotic for urinary tract infection Please take a probiotic daily x 1 month to prevent diarrhea. PLEASE CALL YOUR PRIMARY CARE PHYSICIAN OR RETURN TO THE ER IF WITH WORSENING OF SYMPTOMS, INCLUDING back pain, weakness/numbness of extremities, fever/chills, abdominal pain, nausea/vomiting, problems with urination or bowel movement, etc FOLLOW UP WITH PRIMARY CARE PHYSICIAN OUTLINED ABOVE. FOLLOW UP WITH DR. TOMAS SCHEDULED. Total Time Total Time Spent Total Time Spent (In Minutes): >30 minutes
== END 2023-03-15 12:57 | disposition home or self-care (01) | DRG 454 ==
LOC: ED 01:42 → EDINP 04:29 → SUATTDRO 04:29 → 3E 08:38
DX: D62 Acute posthemorrhagic anemia; B96.20 Unspecified Escherichia coli [E. coli] as the cause of diseases classified elsewhere; Z98.1 Arthrodesis status; M48.062 Spinal stenosis, lumbar region with neurogenic claudication; F17.210 Nicotine dependence, cigarettes, uncomplicated; K21.9 Gastro-esophageal reflux disease without esophagitis; N39.0 Urinary tract infection, site not specified; M51.16 Intervertebral disc disorders with radiculopathy, lumbar region